=== PATIENT | female | born 1995 | race Caucasian/White ===

== ENCOUNTER 2022-08-12 16:01 | Emergency (ER) | payer MEDICAID, SELFPAY ==
[2022-08-12 16:09] VITALS: BP 117/74; PULSE 81; RESP 16; TEMP 36.5; O2SAT 97; BMI 21.3
--- NOTE | 2022-08-12 16:33 | ED_ITS ---
HPI - General Adult General Chief complaint: Nausea/Vomiting Stated complaint: Vomiting, weakness Time Seen by Provider: 08/12/22 16:09 History of Present Illness HPI narrative: This 27-year-old female comes in reporting some generalized weakness starting yesterday. She had some lightheadedness this morning. She states that she had similar symptoms when having a urinary tract infection in the past. She does describe some increased frequency and states that her urine is more yellow in appearance. She also reports a sore throat. Related Data Home Medications Medication Instructions Recorded Confirmed duloxetine 30 mg capsule,delayed 30 mg PO DAILY 08/12/22 08/12/22 release duloxetine 60 mg capsule,delayed 60 mg PO DAILY 08/12/22 08/12/22 release Allergies Allergy/AdvReac Type Severity Reaction Status Date / Time No Known Drug Allergies Allergy Verified 08/12/22 16:12 Review of Systems Status of ROS: Reports: 10 or more systems reviewed and unremarkable except as noted in History and below Narrative: Constitutional: No fevers, no weight gain or loss. Eyes: No discharge. No vision changes. HENT: No congestion, no ear pain. She reports a sore throat. Cardiovascular: No chest pain, no palpitations. Respiratory: No shortness of breath, no wheezes, no cough. Gastrointestinal: No abdominal pain, no vomiting, no diarrhea. Genitourinary: No hematuria. Increased urinary frequency. Musculoskeletal: Normal range of motion. Skin: No rashes, no pruritis. Neurological: No dizziness, sensory change, speech change. Endo/Heme/Allergies: No bruising or bleeding. No polydipsia. Pysch: no suicidality, no anxiety, no insomnia. All other systems reviewed and are negative. [facility] Social History Smoking Status: Current some day smoker What tobacco products do you use: cigarettes Do you use any of these nicotine containing products: None Second hand tobacco smoke exposure: No How often do you have a drink containing alcohol: never AUDIT-C Alcohol total score: 0 Non-prescribed substance use: denies use Exam Narrative: Exam Narrative: Constitutional: Well-developed, well-nourished, no acute distress. HEENT: Normocephalic, atraumatic. Oropharynx has mild erythema without tonsillar hypertrophy or exudate. Neck: Normal range of motion. Nontender. Supple. Heart: Regular. No murmurs. Normal rate. Intact distal pulses. Lungs: Clear to auscultation. No chest discomfort. No wheezes, rhonchi, or rales. Abdomen: Normal bowel sounds. Nontender. No rebound tenderness. Genitalia: Deferred. Back: No midline tenderness. Normal range of motion. Extremities: Normal range of motion. No injury. Skin: Intact. No rash. Warm. No erythema or pallor. Neurologic: No altered sensation. No weakness. Alert and oriented. Psychiatric: No suicidality. No anxiety or depression. No insomnia. Nursing notes and vitals signs are reviewed. Const: Vital Signs, click to edit/add: Vital Signs - 24 hr 08/12/22 16:09 Temperature 97.7 F Pulse Rate [Right Pulse Oximeter] 81 Respiratory Rate 16 Blood Pressure [Ri ght Upper Arm] 117/74 Pulse Oximetry 97 Oxygen Delivery Me thod Room Air Course Vital Signs Vital signs: Initial Vital Signs Temperature 97.7 F 08/12/22 16:09 Temperature Source Temporal Artery Scan 08/12/22 16:09 Pulse Rate 81 08/12/22 16:09 Respiratory Rate 16 08/12/22 16:09 Blood Pressure 117/74 08/12/22 16:09 Blood Pressure Mean 88 08/12/22 16:09 Blood Pressure Position Sitting 08/12/22 16:09 Pulse Oximetry 97 08/12/22 16:09 Oxygen Delivery Method 08/12/22 16:09 Vital Signs Temperature 97.7 F 08/12/22 16:09 Pulse Rate 81 08/12/22 16:09 Respiratory Rate 16 08/12/22 16:09 Blood Pressure 117/74 08/12/22 16:09 Pulse Oximetry 97 08/12/22 16:09 Oxygen Delivery Method 08/12/22 16:09 Temperature 97.7 F 08/12/22 16:09 Pulse Rate 81 08/12/22 16:09 Respiratory Rate 16 08/12/22 16:09 Blood Pressure 117/74 08/12/22 16:09 Pulse Oximetry 97 08/12/22 16:09 Oxygen Delivery Method 08/12/22 16:09 Medical Decision Making [facility] Narrative Medical decision making narrative: This patient comes in reporting generalized fatigue and some lightheadedness episodes. She wonders if she might have a urinary tract infection. She also has sore throat. She arrives with normal vital signs. Testing for her urine and strep both returned negative. The patient may have some kind of viral infection causing her symptoms. She is okay to be discharged and will use [id number] medicines as needed and directed. Lab Data Labs: Lab Results 08/12/22 08/12/22 Range/Units 16:32 16:33 Urine Color Yellow (Yellow) Urine Appearance Clear (Clear) Urine pH 8.0 (5.0-8.5) Ur Specific [place] 1.020 (1.000-1.030) Urine Protein Negative (Negative) Urine Glucose (UA) Negative (Negative) Urine Ketones Negative (Negative) Urine Blood Negative (Negative) Urine Nitrite Negative (Negative) Urine Bilirubin Negative (Negative) Urine Urobilinogen 0.2 (0.2-1.0) Ur Leukocyte Esterase Negative (Negative) Urine RBC 0-2 (0-2) Urine WBC 0-2 (0-5) Ur Squamous Epith Cells None (None-Few) Urine Bacteria None (None) Group A Strep DNA NOT DETECTED (No Detected) Discharge Plan Discharge Clinical Impression: Acute viral syndrome Patient Disposition: Home, Self-Care Condition: Stable Additional Instructions: Use rudn-[id number] medicines as needed and directed. Follow up with MD or return if worsening symptoms occur. Prescriptions: No Action duloxetine 30 mg capsule,delayed release(DR/EC) 30 mg PO DAILY Label Comments: TAKE ONE CAPSULE BY MOUTH EVERY MORNING WITH 60MG FOR TOTAL OF 90MG duloxetine 60 mg capsule,delayed release(DR/EC) 60 mg PO DAILY Label Comments: TAKE ONE CAPSULE BY MOUTH EVERY MORNING WITH 30MG TABLET FOR TOTAL DOSE OF 90MG Follow Up/Referrals: Joanna Carter MD [Primary Care Provider] - Stand Alone Forms: [employer] Info Instructions
[2022-08-12 16:45] LABS: Appearance Urine Clear (Clear); Bilirubin Urine Negative (Negative); Blood Urine Negative (Negative); Color Urine Yellow (Yellow); Glucose Urine Negative (Negative); Ketones Urine Negative (Negative); Leukocyte Esterase Urine Negative (Negative); Nitrite Urine Negative (Negative); Protein Urine Negative (Negative); Urobilinogen Urine 0.2 (0.2-1.0)
[2022-08-12 17:11] LABS: RBC Urine 0-2 (0-2); WBC Urine 0-2 (0-5)
[2022-08-12 17:17] LABS: Strep A DNA Probe* NOT DETECTED (No Detected)
== END 2022-08-12 17:54 | disposition home or self-care (01) ==
PROVIDERS: Emergency Provider Emergency Medicine Emergency Medical Services; PCP Family Medicine
DX: B34.9 Viral infection, unspecified (principal)
CPT/HCPCS: 81001; 87651; 99283; 99284

== ENCOUNTER 2023-02-11 13:33 | Emergency (ER) | payer OTHER, SELFPAY ==
[2023-02-11 13:38] VITALS: BP 108/70; PULSE 78; RESP 16; TEMP 36.7; O2SAT 99; BMI 20.6
[2023-02-11 14:20] LABS: Strep A DNA Probe* NOT DETECTED (Not Detectd)
[2023-02-11 15:11] LABS: PCR FLU A Negative PCR FLU A (Negative); PCR FLU B Negative PCR FLU B (Negative); PCR RSV Negative PCR RSV (Negative)
[2023-02-11 15:13] LABS: SARS PCR* Negative SARS-CoV-2 (Negative)
--- NOTE | 2023-02-12 12:44 | ED_ITS ---
HPI - General Adult General Chief complaint: Sore Throat Stated complaint: Sore Throat Weak Tired Time Seen by Provider: 02/11/23 13:34 History of Present Illness HPI narrative: 27-year-old young woman presenting to the emergency department with complaint of some headache and fatigue general achiness and sore throat though on further query it does not sound as though sore throat is the major complaint necessarily. She has not been vomiting. No abdominal pain. No dysuria. No shortness of breath. Young daughter who accompanies her here today was just diagnosed with strep throat. Symptoms started last night for Gini. She did a home test for COVID which was negative. Swabs have been collected by the time I am seeing Gini. No rash. Related Data Home Medications Medication Instructions Recorded Confirmed duloxetine 30 mg capsule,delayed 30 mg PO DAILY 08/12/22 02/11/23 release duloxetine 60 mg capsule,delayed 60 mg PO DAILY 08/12/22 02/11/23 release multivitamin with folic acid 400 1 tab PO DAILY 02/11/23 mcg tablet (Daily-Cori (with folic acid)) ondansetron 4 mg disintegrating 4 mg PO Q8H PRN nausea/vomiting 02/11/23 02/11/23 tablet vitamin with calcium 1 tab PO DAILY 02/11/23 02/11/23 no.72-iron 27 mg-folic acid 1 mg tablet ( Vitamins Plus Low Iron) triamcinolone acetonide 0.1 % topical BID 02/11/23 lotion triamcinolone acetonide 0.5 % applic topical BID 02/11/23 topical cream Allergies Allergy/AdvReac Type Severity Reaction Status Date / Time No Known Drug Allergies Allergy Verified 02/11/23 13:44 Review of Systems Status of ROS: Reports: 6 or more systems reviewed and unremarkable except as noted in History and below [facility] Social History Smoking Status: Current some day smoker What tobacco products do you use: cigarettes Do you use any of these nicotine containing products: None Second hand tobacco smoke exposure: No How often do you have a drink containing alcohol: never AUDIT-C Alcohol total score: 0 Non-prescribed substance use: denies use Exam Narrative: Exam Narrative: Pleasant. NAD but seems generally uncomfortable. Lying on her left side curled up around her daughter. Tired breathing easily. Lungs are clear. Neck is supple without lymphadenopathy. Oropharynx is moist with trace erythema posteriorly. No laryngitis. She is not coughing. No stridor. Heart with regular rate and rhythm. Abdomen is soft nontender. Extremities are well perfused. Skin is warm and dry without rash. Const: Vital Signs, click to edit/add: Vital Signs - 24 hr 02/11/23 13:38 Temperature 98.0 F Pulse Rate [Pulse Oximeter] 78 Respiratory Rate 16 Blood Pressure [Ri ght Upper Arm] 108/70 Pulse Oximetry 99 Oxygen Delivery Me thod Room Air Documenting provider has reviewed patient's vital signs: yes Course Vital Signs Vital signs: Initial Vital Signs Temperature 98.0 F 02/11/23 13:38 Temperature Source Temporal Artery Scan 02/11/23 13:38 Pulse Rate 78 02/11/23 13:38 Respiratory Rate 16 02/11/23 13:38 Blood Pressure 108/70 02/11/23 13:38 Blood Pressure Mean 82 02/11/23 13:38 Blood Pressure Position Sitting 02/11/23 13:38 Pulse Oximetry 99 02/11/23 13:38 Oxygen Delivery Method Room Air 02/11/23 13:38 Vital Signs Temperature 98.0 F 02/11/23 13:38 Pulse Rate 78 02/11/23 13:38 Respiratory Rate 16 02/11/23 13:38 Blood Pressure 108/70 02/11/23 13:38 Pulse Oximetry 99 02/11/23 13:38 Oxygen Delivery Method Room Air 02/11/23 13:38 Temperature 98.0 F 02/11/23 13:38 Pulse Rate 78 02/11/23 13:38 Respiratory Rate 16 02/11/23 13:38 Blood Pressure 108/70 02/11/23 13:38 Pulse Oximetry 99 02/11/23 13:38 Oxygen Delivery Method Room Air 02/11/23 13:38 Medical Decision Making MDM Narrative Medical decision making narrative: I suspect more of a nonspecific viral process. Some unreliability to home COVID test. Would repeat that with triple swab and check for strep given intimacy of exposure. Triple swab and strep was negative. Was ordered for ibuprofen during time in the ER. See patient discharge plan Lab Data Lab results reviewed: Yes I reviewed the patient's lab results Labs: Lab Results 02/11/23 02/11/23 Range/Units 13:45 14:25 SARS-CoV-2 (PCR) Negative SARS-CoV-2 (Negative) Influenza Type A (PCR) Negative PCR FLU A (Negative) Influenza Type B (PCR) Negative PCR FLU B (Negative) RSV (PCR) Negative PCR RSV (Negative) Group A Strep DNA NOT DETECTED (Not Detectd) Discharge Plan Discharge Clinical Impression: Myalgia, Viral illness Patient Disposition: Home, Self-Care Condition: Stable Additional Instructions: Stay well-hydrated. Rest as able. Throat lozenges or sprays like Sucrets or Chloraseptic might be helpful. Sleep under the mist of a cool mist humidifier. Can take up to 800 mg of ibuprofen or up to 1000 mg of acetaminophen per dose. Alternative to the ibuprofen up to 500 mg naproxen 2 times daily. Prescriptions: No Action duloxetine 30 mg capsule,delayed release(DR/EC) 30 mg PO DAILY Patient Comments: TAKE ONE CAPSULE BY MOUTH EVERY MORNING WITH 60MG FOR TOTAL OF 90MG duloxetine 60 mg capsule,delayed release(DR/EC) 60 mg PO DAILY Patient Comments: TAKE ONE CAPSULE BY MOUTH EVERY MORNING WITH 30MG TABLET FOR TOTAL DOSE OF 90MG triamcinolone acetonide 0.5 % cream topical BID triamcinolone acetonide 0.1 % lotion TOPICAL BID ondansetron 4 mg tablet,disintegrating 4 mg PO Q8H PRN (Reason: nausea/vomiting) Vitamin Plus Low Iron 27 mg iron- 1 mg tablet 1 tab PO DAILY multivitamin with folic acid [Daily-Cori (with folic acid)] 400 mcg tablet 1 tab PO DAILY Follow Up/Referrals: Joanna Carter MD [Primary Care Provider] - Stand Alone Forms: [facility] Info Instructions
== END 2023-02-11 15:35 | disposition home or self-care (01) ==
PROVIDERS: Emergency Provider Family Medicine; PCP Family Medicine
DX: M79.10 Myalgia, unspecified site (principal); B34.9 Viral infection, unspecified
CPT/HCPCS: 87502; 87634; 87635; 87651; 99283

== ENCOUNTER 2023-08-24 17:52 | Emergency (ER) | payer OTHER, SELFPAY ==
[2023-08-24 18:00] VITALS: BP 110/70; PULSE 80; RESP 18; TEMP 36.9; O2SAT 100; BMI 21.5
--- NOTE | 2023-08-24 18:16 | ED_ITS ---
HPI - General Adult General Time Seen by Provider: 18:16 Date Seen: 08/24/23 Chief complaint: Nausea/Vomiting Stated complaint: 10 weeks , vomiting, headache Time Seen by Provider: 08/24/23 18:00 Source: patient and RN notes reviewed Mode of arrival: ambulatory Limitations: no limitations History of Present Illness HPI narrative: This 28-year-old female is coming in with nausea vomiting about 10 weeks . She has had an underlying respiratory infection. She was evaluated at [facility] on Saturday and then [facility] on . She has had negative COVID testing, negative strep testing. This is her 3rd . Her 1st she was sick throughout the whole with morning sickness. She did use Zofran that . She had a miscarriage in December. She is quite concerned that something could be wrong with the baby. She is not having any cramping, no spotting/bleeding. No abnormal vaginal discharge. She states her urination is normal. She is just sick and can not get anything in. She is still taking her prenatals. She has got a lot of nasal congestion some headache, no fevers. She is wondering if she can have an ultrasound. She has tried vitamin B6 and Unisom, it is not helping. She notes the morning sickness is really worsening over these last few weeks and then with her cold symptoms on top of it, she is feeling miserable. Related Data Home Medications Medication Instructions Recorded Confirmed duloxetine 30 mg capsule,delayed 30 mg PO DAILY 08/12/22 02/11/23 release duloxetine 60 mg capsule,delayed 60 mg PO DAILY 08/12/22 02/11/23 release multivitamin with folic acid 400 1 tab PO DAILY 02/11/23 mcg tablet (Daily-Cori (with folic acid)) ondansetron 4 mg disintegrating 4 mg PO Q8H PRN nausea/vomiting 02/11/23 02/11/23 tablet vitamin with calcium 1 tab PO DAILY 02/11/23 02/11/23 no.72-iron 27 mg-folic acid 1 mg tablet ( Vitamins Plus Low Iron) triamcinolone acetonide 0.1 % topical BID 02/11/23 lotion triamcinolone acetonide 0.5 % applic topical BID 02/11/23 topical cream Allergies Allergy/AdvReac Type Severity Reaction Status Date / Time No Known Drug Allergies Allergy Verified 02/11/23 13:44 Review of Systems Status of ROS: Reports: 6 or more systems reviewed and unremarkable except as noted in History and below [facility] Social History Smoking Status: Current some day smoker What tobacco products do you use: cigarettes Do you use any of these nicotine containing products: None Second hand tobacco smoke exposure: No How often do you have a drink containing alcohol: never AUDIT-C Alcohol total score: 0 Non-prescribed substance use: denies use Exam Const: Vital Signs, click to edit/add: Vital Signs - 24 hr 08/24/23 18:00 Temperature 98.5 F Pulse Rate [Pulse Oximeter] 80 Respiratory Rate 18 Blood Pressure [Ri ght Upper Arm] 110/70 Pulse Oximetry 100 Oxygen Delivery Me thod Room Air This is a 28-year-old female that is alert, interactive, no apparent distress. Able speak in complete sentences. Sclera clear, pupils equal round reactive. Symmetrical facial function. Neck is supple, no thyromegaly masses or nodules. Lungs are clear, good air entry, no wheezing or crackles. CV regular rate and rhythm, no murmur, normal S1 and S2. Abdomen is soft, nontender nondistended. Bedside ultrasound was done. Can see a gestational sac with the pole. I can see cardiac activity, looks certainly appropriate. Documenting provider has reviewed patient's vital signs: yes Course Course ED Course: Patient is very reassured by the bedside ultrasound. We will establish an IV, get basic lab work. Will give her 4 mg IV Zofran. She does not have a follow-up with her OB Dr. Carter for another 2 and half weeks per her report. Reevaluation(s) Time of Reevaluation #1: 19:15 Reevaluation #1: Patient is completed IV fluids. Does have audible nasal congestion in she is blowing her nose when I walk in. She does feel better. Reviewed her labs, they are reassuring. She is requesting a prescription of Zofran from [facility] which I will provide. This will be 10 tablets in the machine that will be provided. Vital Signs Vital signs: Initial Vital Signs Temperature 98.5 F 08/24/23 18:00 Temperature Source Temporal Artery Scan 08/24/23 18:00 Pulse Rate 80 08/24/23 18:00 Respiratory Rate 18 08/24/23 18:00 Blood Pressure 110/70 08/24/23 18:00 Blood Pressure Mean 83 08/24/23 18:00 Pulse Oximetry 100 08/24/23 18:00 Oxygen Delivery Method Room Air 08/24/23 18:00 Vital Signs Temperature 98.5 F 08/24/23 18:00 Pulse Rate 80 08/24/23 18:00 Respiratory Rate 18 08/24/23 18:00 Blood Pressure 110/70 08/24/23 18:00 Pulse Oximetry 100 08/24/23 18:00 Oxygen Delivery Method Room Air 08/24/23 18:00 Temperature 98.5 F 08/24/23 18:00 Pulse Rate 80 08/24/23 18:00 Respiratory Rate 18 08/24/23 18:00 Blood Pressure 110/70 08/24/23 18:00 Pulse Oximetry 100 08/24/23 18:00 Oxygen Delivery Method Room Air 08/24/23 18:00 Medical Decision Making Lab Data Lab results reviewed: Yes I reviewed the patient's lab results Labs: Lab Results 08/24/23 08/24/23 Range/Units 18:33 18:38 WBC 10.66 (4.50-11.00) K/uL RBC 4.41 (4.00-5.20) m/uL Hgb 12.4 (12.0-16.0) gm/dL Hct 38.4 (33.0-51.0) % MCV 87 (80-100) fL MCH 28 (26-34) pg MCHC 32 (32-36) gm/dL RDW Coeff of Jase 13.2 (11.5-15.5) % Plt Count 237 (140-440) K/uL Neut % (Auto) 66.1 (42.0-72.0) % Lymph % (Auto) 26.6 (20-44) % [place] % (Auto) 6.1 (0.0-11.0) % Eos % (Auto) 0.8 (0.0-7.0) % Baso % (Auto) 0.3 (0.0-3.0) % Neut # (Auto) 7.05 H (1.7-7.0) K/uL Lymph # (Auto) 2.84 (0.90-2.90) K/uL [place] # (Auto) 0.70 (0.00-0.90) K/UL Eos # (Auto) 0.08 (0.00-0.50) K/uL Baso # (Auto) 0.03 (0.00-0.30) K/uL Abs Immat Gran (auto) 0.01 (0.00-0.30) K/uL Imm/Tot Granulo (auto) 0.1 % Sodium 139 (135-149) mmol/L Potassium 3.7 (3.6-5.1) mmol/L Chloride 103 (96-114) mmol/L Carbon Dioxide 28 (20-32) mmol/L Anion Gap 8 (7-15) mEq/L BUN 3 L (5-24) mg/dL Creatinine 0.4 L (0.5-1.5) mg/dL Estimated Creat Clear 180.81 Estimated GFR 138 ml/min Glucose 84 (60-115) mg/dL Calcium 9.2 (8.4-10.6) mg/dL Urine Color Yellow (Yellow) Urine Appearance Clear (Clear) Urine pH 8.5 (5.0-8.5) Ur Specific [place] 1.015 (1.000-1.030) Urine Protein Negative (Negative) Urine Glucose (UA) Negative (Negative) Urine Ketones Negative (Negative) Urine Blood Trace-intact A (Negative) Urine Nitrite Negative (Negative) Urine Bilirubin Negative (Negative) Urine Urobilinogen 0.2 (0.2-1.0) Ur Leukocyte Esterase Trace A (Negative) Discharge Plan Discharge Clinical Impression: Acute upper respiratory infection, Nausea and vomiting during prior to 22 weeks gestation Patient Disposition: Home, Self-Care Condition: Stable Instructions: Nausea and Vomiting in (ED), Upper Respiratory Infection (ED) Additional Instructions: Contact your primary provider to discuss or get a list of what cough and cold medicines they recommend during . Otherwise, can use Zofran for ongoing nausea vomiting. Keep your scheduled OB appointment but see if they can move it up if there are any cancellations. If you feel you are worsening, develops a fever, cannot get adequate fluids in despite Zofran use, do need to be re-evaluated. Activity Level: Activity as Tolerated Discharge Diet: Regular Prescriptions: No Action duloxetine 30 mg capsule,delayed release(DR/EC) 30 mg PO DAILY Patient Comments: TAKE ONE CAPSULE BY MOUTH EVERY MORNING WITH 60MG FOR TOTAL OF 90MG duloxetine 60 mg capsule,delayed release(DR/EC) 60 mg PO DAILY Patient Comments: TAKE ONE CAPSULE BY MOUTH EVERY MORNING WITH 30MG TABLET FOR TOTAL DOSE OF 90MG triamcinolone acetonide 0.5 % cream topical BID triamcinolone acetonide 0.1 % lotion TOPICAL BID ondansetron 4 mg tablet,disintegrating 4 mg PO Q8H PRN (Reason: nausea/vomiting) Vitamin Plus Low Iron 27 mg iron- 1 mg tablet 1 tab PO DAILY multivitamin with folic acid [Daily-Cori (with folic acid)] 400 mcg tablet 1 tab PO DAILY Follow Up/Referrals: Joanna Carter MD [Primary Care Provider] - Stand Alone [facility]: [facility] Info Instructions
[2023-08-24 18:44] LABS: Basophils Absolute Auto 0.03 K/uL (0.00-0.30); Basophils Percent Auto 0.3 % (0.0-3.0); Eosinophils Absolute Auto 0.08 K/uL (0.00-0.50); Eosinophils Percent Auto 0.8 % (0.0-7.0); Hematocrit 38.4 % (33.0-51.0); Hemoglobin* 12.4 gm/dL (12.0-16.0); Immature Granulocytes Abs Auto 0.01 K/uL (0.00-0.30); Immature Granulocytes Pct Auto 0.1 %; Lymphocytes Absolute Auto 2.84 K/uL (0.90-2.90); Lymphocytes Percent Auto 26.6 % (20-44); Mean Corpuscular HGB Conc 32 gm/dL (32-36); Mean Corpuscular Hemoglobin 28 pg (26-34); Mean Corpuscular Volume 87 fL (80-100); Monocytes Percent Auto 6.1 % (0.0-11.0); Neutrophils Absolute Auto 7.05 K/uL (1.7-7.0); Neutrophils Percent Auto 66.1 % (42.0-72.0); Platelet Count* 237 K/uL (140-440); RDW Coefficient of Variation % 13.2 % (11.5-15.5); Red Blood Count 4.41 m/uL (4.00-5.20); White Blood Count* 10.66 K/uL (4.50-11.00)
[2023-08-24] MEDS: 0.9 % SODIUM CHLORIDE 1000 ml 1,000 ML IV (18:46)
[2023-08-24] MEDS: ONDANSETRON 2 MG/ML inj 4 MG IVP (18:46)
[2023-08-24 18:53] LABS: Slide Review Reflex No
[2023-08-24 18:56] LABS: Chloride* 103 mmol/L (96-114)
[2023-08-24 18:57] LABS: Potassium* 3.7 mmol/L (3.6-5.1); Sodium* 139 mmol/L (135-149)
[2023-08-24 18:59] LABS: Creatinine* 0.4 mg/dL (0.5-1.5); Est. Creatinine Clearance* 180.81; Estimated Glomerular Filt Rate 138 ml/min
[2023-08-24 19:00] LABS: Anion Gap 8 mEq/L (7-15); Blood Urea Nitrogen* 3 mg/dL (5-24); Calcium* 9.2 mg/dL (8.4-10.6); Carbon Dioxide* 28 mmol/L (20-32); Glucose* 84 mg/dL (60-115)
[2023-08-24 19:10] LABS: Appearance Urine Clear (Clear); Bilirubin Urine Negative (Negative); Blood Urine Trace-intact (Negative); Color Urine Yellow (Yellow); Glucose Urine Negative (Negative); Ketones Urine Negative (Negative); Leukocyte Esterase Urine Trace (Negative); Nitrite Urine Negative (Negative); Protein Urine Negative (Negative); Specific Gravity Urine 1.015 (1.000-1.030); Urobilinogen Urine 0.2 (0.2-1.0); pH Urine 8.5 (5.0-8.5)
[2023-08-24 19:18] LABS: RBC Urine 0-2 (0-2); WBC Urine 0-2 (0-5)
== END 2023-08-24 19:47 | disposition home or self-care (01) ==
PROVIDERS: Emergency Provider Family Medicine; PCP Family Medicine
DX: O21.9 Vomiting of pregnancy, unspecified (principal); J06.9 Acute upper respiratory infection, unspecified
CPT/HCPCS: 36415; 80048; 81003; 81015; 85025; 96374; 99284; J2405; J7030

== ENCOUNTER 2023-08-26 15:31 | Emergency (ER) | payer OTHER, SELFPAY ==
[2023-08-26 15:49] VITALS: BP 117/75; PULSE 72; RESP 18; TEMP 36.8; O2SAT 98
--- NOTE | 2023-08-26 17:19 | ED_ITS ---
HPI - General Adult General Date Seen: 08/26/23 Chief complaint: Nausea/Vomiting Stated complaint: , nausea Time Seen by Provider: 08/26/23 16:55 Source: patient Mode of arrival: ambulatory Limitations: no limitations History of Present Illness HPI narrative: Patient is a 28-year-old woman who is here with her 3rd and problems with hyperemesis. She was here week ago, had some upper respiratory symptoms as well as vomiting and was treated with fluids and Zofran. She was sent home with Zofran and says she has been taking those but she still having problems with vomiting. She talked to her [facility], [facility], and they are going to see her on Saturday and get some scheduled IVs set up, but recommended that she come in today to be treated. She had problems with hyperemesis throughout her 1st but says she had more nausea and not so much vomiting. Otherwise she is not having any related concerns such as bleeding or pain. She continues to feel congested. COVID has been checked a couple of times and was negative. Related Data Home Medications Medication Instructions Recorded Confirmed duloxetine 30 mg capsule,delayed 30 mg PO DAILY 08/12/22 02/11/23 release duloxetine 60 mg capsule,delayed 60 mg PO DAILY 08/12/22 02/11/23 release multivitamin with folic acid 400 1 tab PO DAILY 02/11/23 mcg tablet (Daily-Cori (with folic acid)) ondansetron 4 mg disintegrating 4 mg PO Q8H PRN nausea/vomiting 02/11/23 02/11/23 tablet vitamin with calcium 1 tab PO DAILY 02/11/23 02/11/23 no.72-iron 27 mg-folic acid 1 mg tablet ( Vitamins Plus Low Iron) triamcinolone acetonide 0.1 % topical BID 02/11/23 lotion triamcinolone acetonide 0.5 % applic topical BID 02/11/23 topical cream Previous Rx's Medication Instructions Recorded metoclopramide HCl 5 mg tablet 5 mg PO DAILY #7 tabs 08/26/23 (Reglan) Allergies Allergy/AdvReac Type Severity Reaction Status Date / Time No Known Drug Allergies Allergy Verified 02/11/23 13:44 Review of Systems Status of ROS: Reports: 6 or more systems reviewed and unremarkable except as noted in History and below PFSH PFSH Social History Smoking Status: Current some day smoker What tobacco products do you use: cigarettes Do you use any of these nicotine containing products: None Second hand tobacco smoke exposure: No How often do you have a drink containing alcohol: never How often do you have six or more drinks on one occasion: Never AUDIT-C Alcohol total score: 0 Non-prescribed substance use: denies use service: No Exam Narrative: Exam Narrative: Vital signs as noted above. In general, an alert, well-appearing patient. Head: Normocephalic, atraumatic. Eyes: Pupils are equal reactive. Extraocular movements are full. Conjunctivae are normal. ENT: Mucous membranes are moist. Neck: Supple without lymphadenopathy. Abdomen: Soft and nontender. Extremities: Well perfused. No edema. No calf tenderness. Pulses intact. Neurologic: Patient is alert and oriented to person and place. Speech is fluent. Face is symmetric. Moves all extremities equally. Affect: Normal. Skin: Warm and dry. Well perfused. Const: Vital Signs, click to edit/add: Vital Signs - 24 hr 08/26/23 15:49 Temperature 98.3 F Pulse Rate [Right Pulse Oximeter] 72 Respiratory Rate 18 Blood Pressure [Ri ght Upper Arm] 117/75 Pulse Oximetry 98 Oxygen Delivery Me thod Room Air Documenting provider has reviewed patient's vital signs: yes Course Course ED Course: An IV was placed, I did check a metabolic panel and labs are normal, CO2 is 23, BUN 5, creatinine 0.4, electrolytes normal. Blood sugars 87. She had a L normal saline and Reglan here, she is currently eating [employer], has not had any vomiting. Reasonable to discharge home. I will prescribe some Reglan perhaps that will work better for her. Follow up with her OB Clinic on Saturday as planned. Vital Signs Vital signs: Initial Vital Signs Temperature 98.3 F 08/26/23 15:49 Temperature Source Temporal Artery Scan 08/26/23 15:49 Pulse Rate 72 08/26/23 15:49 Respiratory Rate 18 08/26/23 15:49 Blood Pressure 117/75 08/26/23 15:49 Blood Pressure Mean 89 08/26/23 15:49 Blood Pressure Position Sitting 08/26/23 15:49 Pulse Oximetry 98 08/26/23 15:49 Oxygen Delivery Method Room Air 08/26/23 15:49 Vital Signs Temperature 98.3 F 08/26/23 15:49 Pulse Rate 72 08/26/23 15:49 Respiratory Rate 18 08/26/23 15:49 Blood Pressure 117/75 08/26/23 15:49 Pulse Oximetry 98 08/26/23 15:49 Oxygen Delivery Method Room Air 08/26/23 15:49 Temperature 98.3 F 08/26/23 15:49 Pulse Rate 72 08/26/23 15:49 Respiratory Rate 18 08/26/23 15:49 Blood Pressure 117/75 08/26/23 15:49 Pulse Oximetry 98 08/26/23 15:49 Oxygen Delivery Method Room Air 08/26/23 15:49 Medical Decision Making Lab Data Labs: Lab Results 08/26/23 Range/Units 17:21 Sodium 137 (135-149) mmol/L Potassium 3.8 (3.6-5.1) mmol/L Chloride 104 (96-114) mmol/L Carbon Dioxide 23 (20-32) mmol/L Anion Gap 10 (7-15) mEq/L BUN 5 (5-24) mg/dL Creatinine 0.4 L (0.5-1.5) mg/dL Estimated GFR 138 ml/min Glucose 87 (60-115) mg/dL Calcium 9.6 (8.4-10.6) mg/dL Discharge Plan Discharge Clinical Impression: Nausea and vomiting during prior to 22 weeks gestation Patient Disposition: Home, Self-Care Condition: Improved Instructions: Nausea and Vomiting in (ED) Additional Instructions: Try Reglan as prescribed to see if it works better for you. Follow-up on Saturday as planned. Prescriptions: New metoclopramide HCl [Reglan] 5 mg tablet 5 mg PO DAILY Qty: 7 0RF No Action duloxetine 30 mg capsule,delayed release(DR/EC) 30 mg PO DAILY Patient Comments: TAKE ONE CAPSULE BY MOUTH EVERY MORNING WITH 60MG FOR TOTAL OF 90MG duloxetine 60 mg capsule,delayed release(DR/EC) 60 mg PO DAILY Patient Comments: TAKE ONE CAPSULE BY MOUTH EVERY MORNING WITH 30MG TABLET FOR TOTAL DOSE OF 90MG triamcinolone acetonide 0.5 % cream topical BID triamcinolone acetonide 0.1 % lotion TOPICAL BID ondansetron 4 mg tablet,disintegrating 4 mg PO Q8H PRN (Reason: nausea/vomiting) Vitamin Plus Low Iron 27 mg iron- 1 mg tablet 1 tab PO DAILY multivitamin with folic acid [Daily-Cori (with folic acid)] 400 mcg tablet 1 tab PO DAILY Follow Up/Referrals: Joanna Carter MD [Primary Care Provider] - Stand Alone Forms: [employer] other things you bake Info Instructions
[2023-08-26] MEDS: METOCLOPRAMIDE HCL 10 MG in 0.9 % SODIUM CHLORIDE 100 ml 100 ML 306 MG IVPB (17:20)
[2023-08-26] MEDS: 0.9 % SODIUM CHLORIDE 1000 ml 1,000 ML IV (17:20)
[2023-08-26 17:51] LABS: Chloride* 104 mmol/L (96-114); Potassium* 3.8 mmol/L (3.6-5.1); Sodium* 137 mmol/L (135-149)
[2023-08-26 17:53] LABS: Creatinine* 0.4 mg/dL (0.5-1.5); Estimated Glomerular Filt Rate 138 ml/min
[2023-08-26 17:54] LABS: Anion Gap 10 mEq/L (7-15); Blood Urea Nitrogen* 5 mg/dL (5-24); Calcium* 9.6 mg/dL (8.4-10.6); Carbon Dioxide* 23 mmol/L (20-32); Glucose* 87 mg/dL (60-115)
== END 2023-08-26 18:39 | disposition home or self-care (01) ==
PROVIDERS: Emergency Provider Emergency Medicine; PCP Family Medicine
DX: R11.2 Nausea with vomiting, unspecified (principal); Z3A.22 22 weeks gestation of pregnancy
CPT/HCPCS: 36415; 80048; 96365; 99283; 99284; J2765; J7030

== ENCOUNTER 2023-11-06 09:15 | Outpatient (CLI) | payer OTHER, SELFPAY ==
[2023-11-06] VITALS (10 sets, daily range): BP systolic 117; BP diastolic 64; PULSE 80–86; RESP 16; TEMP 36.8; O2SAT 98–99
== END 2023-11-06 10:20 | disposition home or self-care (01) ==
LOC: OB OUT 09:16 → OB 09:17
PROVIDERS: PCP Family Medicine; Visit Provider Student in an Organized Health Care Education/Training Program
DX: O60.00 Preterm labor without delivery, unspecified trimester (principal)
CPT/HCPCS: 99213

== ENCOUNTER 2023-12-30 19:02 | Outpatient (CLI) | payer MEDICAID, SELFPAY ==
[2023-12-30 19:40] VITALS: BP 116/67; PULSE 83
[2023-12-30 20:00] VITALS: RESP 16; TEMP 36.7
[2023-12-30 20:27] LABS: Appearance Urine Clear (Clear); Bilirubin Urine Negative (Negative); Blood Urine Negative (Negative); Color Urine Yellow (Yellow); Glucose Urine Negative (Negative); Ketones Urine Negative (Negative); Leukocyte Esterase Urine Negative (Negative); Nitrite Urine Negative (Negative); Protein Urine Negative (Negative); Specific Gravity Urine 1.025 (1.000-1.030); Urobilinogen Urine 0.2 (0.2-1.0)
[2023-12-30] MEDS: ACETAMINOPHEN 500 MG TABLET 1000 MG PO (20:49)
[2023-12-30 22:43] LABS: Bacterial Vaginosis* DETECTED (No Detected); Candida glab/krus Not Detected (No Detected); Candida species DETECTED (No Detected); Trichomonas vaginalis Not Detected (No Detected)
--- NOTE | 2023-12-30 23:28 | PC.OBNST ---
NST Note NST Note Start: 12/30/23 19:29 Freq: ONCE Status: Active Protocol: Document 12/30/23 23:26 ADRIÁN (Rec: 12/30/23 23:27 ADRIÁN [id number]) NST Note 4 Para (# of births) 1 EDC 03/15/24 Gestational Age In Weeks & Days 29 Weeks & 1 Days Patient Presented with Complaint(s) of Pain If Pain, describe location Pelvic pain/pain in left hip/ groin Reactive Yes Appropriate for Gestational Age Yes RN Ashu Walton, RN Date 12/30/23 Reactive Yes Appropriate for Gestational Age Yes SHERRI Reyes, RN Date 12/30/23 OB NST charge Yes Complete NST Note via Write Note Yes The provider's electronic signature indicates the NST is reactive/appropriate for gestational age. *Note to provider: If an addendum is required, open the patient's chart and click on the note under the Nurse/Allied Health tab.
--- NOTE | 2024-01-01 11:14 | PC.OBNST ---
NST Note NST Note Start: 12/30/23 19:29 Freq: ONCE Status: Discharge Protocol: Document 12/30/23 23:26 ADRIÁN (Rec: 12/30/23 23:27 ADRIÁN [id number]) NST Note 4 Para (# of births) 1 EDC 03/15/24 Gestational Age In Weeks & Days 29 Weeks & 1 Days Patient Presented with Complaint(s) of Pain If Pain, describe location Pelvic pain/pain in left hip/ groin Reactive Yes Appropriate for Gestational Age Yes RN Ashu Walton, RN Date 12/30/23 Reactive Yes Appropriate for Gestational Age Yes SHERRI Reyes, RN Date 12/30/23 OB NST charge Yes Complete NST Note via Write Note Yes The provider's electronic signature indicates the NST is reactive/appropriate for gestational age. *Note to provider: If an addendum is required, open the patient's chart and click on the note under the Nurse/Allied Health tab.
== END 2023-12-30 23:18 | disposition home or self-care (01) ==
LOC: OB OUT 19:03 → OB 19:04
PROVIDERS: PCP Family Medicine; Visit Provider Family Medicine
DX: O47.03 False labor before 37 completed weeks of gestation, third trimester (principal); Z3A.29 29 weeks gestation of pregnancy
CPT/HCPCS: 59025; 81003; 81513; 87481; 87661; G0463; A9270

== ENCOUNTER 2024-02-06 09:39 | Outpatient (CLI) | payer MEDICAID, SELFPAY ==
[2024-02-06 09:45] VITALS: RESP 18; TEMP 36.6
[2024-02-06 09:49] VITALS: BP 122/75; PULSE 82
[2024-02-06] MEDS: ACETAMINOPHEN 325 MG TABLET PO (09:55)
[2024-02-06 10:09] VITALS: BP 116/65; PULSE 76
[2024-02-06 10:10] LABS: Hematocrit 36.7 % (33.0-51.0); Hemoglobin* 11.8 gm/dL (12.0-16.0); Mean Corpuscular HGB Conc 32 gm/dL (32-36); Mean Corpuscular Hemoglobin 28 pg (26-34); Mean Corpuscular Volume 88 fL (80-100); Platelet Count* 214 K/uL (140-440); Red Blood Count 4.19 m/uL (4.00-5.20); White Blood Count* 11.02 K/uL (4.50-11.00)
[2024-02-06 10:16] LABS: Slide Review Reflex No
[2024-02-06 10:20] VITALS: BP 115/65; PULSE 72
[2024-02-06 10:31] LABS: Alanine Aminotransferase* 12 U/L (4-35); Aspartate Amino Transferase* 16 U/L (12-35); Blood Urea Nitrogen* 8 mg/dL (5-24); Creatinine* 0.4 mg/dL (0.5-1.5); Estimated Glomerular Filt Rate 138 ml/min
[2024-02-06 10:31] LABS: Total Protein Urine 10 mg/dL
[2024-02-06 10:33] LABS: Creatinine Urine 25.5 mg/dL
[2024-02-06 10:34] VITALS: BP 116/62; PULSE 77
[2024-02-06 12:04] LABS: PCR FLU A Negative PCR FLU A (Negative); PCR FLU B Negative PCR FLU B (Negative); PCR RSV Negative PCR RSV (Negative); SARS PCR* Negative SARS-CoV-2 (Negative)
--- NOTE | 2024-02-06 13:34 | PC.OBNST ---
NST Note NST Note Start: 02/06/24 09:50 Freq: ONCE Status: Active Protocol: Document 02/06/24 13:32 WK (Rec: 02/06/24 13:34 WK [id number]) NST Note 4 Para (# of births) 1 EDC 03/14/24 Gestational Age In Weeks & Days 34 Weeks & 5 Days Patient Presented with Complaint(s) of Headache Reactive Yes RN Zackery RNC Date 02/06/24 Reactive Yes RN Camille RNC Date 02/06/24 OB NST charge Yes Complete NST Note via Write Note Yes The provider's electronic signature indicates the NST is reactive/appropriate for gestational age. *Note to provider: If an addendum is required, open the patient's chart and click on the note under the Nurse/Allied Health tab.
--- NOTE | 2024-02-06 13:58 | PM.OBLDTN ---
OB - Triage/Final Diagnosis Visit Information Date Seen: 02/06/24 Narrative: The patient is a 28 year old 4 para 1 at 34.4 weeks gestation by LMP, who presents with headache. She has a history of preeclampsia and wanted to make sure that wasn't going on now. Headache started this morning up to a 6/10. Center of her head. No other symptoms. Feeling good movement. No contractions. No RUQ pain. Good movement. No visual changes. Exposed to influenza yesterday but no respiratory symptoms. Evaluation Laboratory results: Laboratory Tests 02/06/24 02/06/24 02/06/24 Range/Units Unknown 11:14 10:04 WBC 11.02 H (4.50-11.00) K/uL RBC 4.19 (4.00-5.20) m/uL Hgb 11.8 L (12.0-16.0) gm/dL Hct 36.7 (33.0-51.0) % MCV 88 (80-100) fL MCH 28 (26-34) pg MCHC 32 (32-36) gm/dL Plt Count 214 (140-440) K/uL BUN 8 (5-24) mg/dL Creatinine 0.4 L (0.5-1.5) mg/dL Estimated GFR 138 ml/min AST 16 (12-35) U/L ALT 12 (4-35) U/L Urine Creatinine 25.5 mg/dL Protein/Creatinin Ratio 0.30 H (0-0.19) Urine Total Protein 10 mg/dL SARS-CoV-2 (PCR) Negative SARS-CoV-2 (Negative) Influenza Type A (PCR) Negative PCR FLU A (Negative) Influenza Type B (PCR) Negative PCR FLU B (Negative) RSV (PCR) Negative PCR RSV (Negative) Vital signs: Vital Signs - 24 hr 02/06/24 09:45 02/06/24 09:49 02/06/24 10:09 Temperature 98 F Pulse Rate 82 Respiratory Rate 18 Blood Pressure 122/75 116/65 02/06/24 10:09 02/06/24 10:20 02/06/24 10:20 Temperature Pulse Rate 76 72 Respiratory Rate Blood Pressure 115/65 02/06/24 10:34 02/06/24 10:34 Temperature Pulse Rate 77 Respiratory Rate Blood Pressure 116/62 Comments: Objective: BP 115/65 Gen: NAD Abd: Gravid uterus, nontender Neuro: DTRs 1+, no clonus Fetus (Single) Heart Rate Baseline: 140 Senior Care Variability: Moderate (6-25) Monitor Accelerations: Present Monitor Decelerations: None Final Diagnosis (1) Headache in : Status: Acute Problem details: Preeclampsia rule out. Labs normal except urine p/c ratio slightly high at 0.3. Will get 24 hour urine protein to evaluate further. Flu/Covid/RSV swab negative. Headache improved with tylenol. She declines tamiflu for influenza prevention. Will discharge home and follow up tomorrow with Dr. Carter. Return if worsening symptoms or other concerns.
[2024-02-07 11:48] LABS: Total Protein Urine 10 mg/dL
[2024-02-07 14:54] LABS: Collection Time Urine 24 Hours; Total Volume 24 Hour Urine 2250 ml; Urine Creatinine mg/24 Hour 0 mg/Day
== END 2024-02-06 13:15 | disposition home or self-care (01) ==
LOC: OB OUT 09:39 → OB 09:42
PROVIDERS: PCP Family Medicine; Visit Provider Surgery
DX: O26.899 Other specified pregnancy related conditions, unspecified trimester (principal); R51.9 Headache, unspecified; Z3A.34 34 weeks gestation of pregnancy
CPT/HCPCS: 36415; 59025; 82565; 82570; 84156; 84450; 84460; 84520; 85027; 87631; 87804; G0463; A9270

== ENCOUNTER 2024-02-17 17:52 | Outpatient (CLI) | payer MEDICAID, SELFPAY ==
[2024-02-17 18:07] VITALS: PULSE 44; PULSE 92; O2SAT 81; O2SAT 97
[2024-02-17 18:10] VITALS: BP 128/80; PULSE 92
[2024-02-17 18:48] LABS: Amnisure Rom* Negative
--- NOTE | 2024-02-17 19:09 | PC.OBNST ---
NST Note NST Note Start: 02/17/24 17:58 Freq: ONCE Status: Active Protocol: Document 02/17/24 18:58 [facility] (Rec: 02/17/24 19:09 [facility] [id number]) NST Note 4 Para (# of births) 1 EDC 03/15/24 Gestational Age In Weeks & Days 36 Weeks & 1 Days Patient Presented with Complaint(s) of Leaking fluid Reactive Yes Appropriate for Gestational Age Yes SHERRI Do Date 02/17/24 Reactive Yes Appropriate for Gestational Age Yes SHERRI Moody Date 02/17/24 OB NST charge Yes Complete NST Note via Write Note Yes The provider's electronic signature indicates the NST is reactive/appropriate for gestational age. *Note to provider: If an addendum is required, open the patient's chart and click on the note under the Nurse/Allied Health tab.
== END 2024-02-17 19:15 | disposition home or self-care (01) ==
LOC: OB OUT 17:54 → OB 17:56
PROVIDERS: PCP Family Medicine; Visit Provider Student in an Organized Health Care Education/Training Program
DX: Z39.1 Encounter for care and examination of lactating mother (principal)
CPT/HCPCS: 59025; 84112; G0463

== ENCOUNTER 2024-02-21 15:53 | Outpatient (CLI) | payer MEDICAID, SELFPAY ==
[2024-02-21 16:04] VITALS: PULSE 73; RESP 17; TEMP 36.5; O2SAT 98
[2024-02-21 16:10] VITALS: BP 117/73; PULSE 69
[2024-02-21] MEDS: LACTATED RINGERS 1000 ML 1,000 ML 925 ML IV (16:42)
[2024-02-21 16:48] LABS: Hemoglobin* 12.8 gm/dL (12.0-16.0); Mean Corpuscular HGB Conc 32 gm/dL (32-36); Mean Corpuscular Hemoglobin 28 pg (26-34); Mean Corpuscular Volume 88 fL (80-100); Platelet Count* 221 K/uL (140-440); Red Blood Count 4.56 m/uL (4.00-5.20); White Blood Count* 10.84 K/uL (4.50-11.00)
[2024-02-21 17:01] LABS: Slide Review Reflex No
[2024-02-21] MEDS: ACETAMINOPHEN 500 MG TABLET 1000 MG PO (17:01)
[2024-02-21] MEDS: METOCLOPRAMIDE HCL 5 MG/ML INJ 10 MG IVP (17:02)
[2024-02-21 17:24] LABS: Creatinine* 0.5 mg/dL (0.5-1.5); Estimated Glomerular Filt Rate 131 ml/min
[2024-02-21 17:25] LABS: Alanine Aminotransferase* 12 U/L (4-35); Aspartate Amino Transferase* 22 U/L (12-35); Blood Urea Nitrogen* 12 mg/dL (5-24)
[2024-02-21 17:29] LABS: Total Protein Urine 10 mg/dL
[2024-02-21 17:30] LABS: Creatinine Urine 25.9 mg/dL
[2024-02-21 18:26] VITALS: BP 126/67; PULSE 93
[2024-02-21] MEDS: diphenhydrAMINE 50 MG/ML inj 25 MG IVP (18:27)
[2024-02-21 19:28] VITALS: BP 107/56; PULSE 94
--- NOTE | 2024-02-21 21:25 | PC.OBNST ---
NST Note NST Note Start: 02/21/24 21:24 Freq: Status: Active Protocol: Document 02/21/24 21:24 GRIFFIN (Rec: 02/21/24 21:25 GRIFFIN [id number]) NST Note 4 Para (# of births) 1 EDC 03/15/24 Gestational Age In Weeks & Days 36 Weeks & 5 Days Patient Presented with Complaint(s) of Headache Reactive Yes Appropriate for Gestational Age Yes SHERRI Patel RNC Date 02/21/24 Reactive Yes Appropriate for Gestational Age Yes SHERRI Blake RN Date 02/21/24 OB NST charge Yes Complete NST Note via Write Note Yes The provider's electronic signature indicates the NST is reactive/appropriate for gestational age. *Note to provider: If an addendum is required, open the patient's chart and click on the note under the Nurse/Allied Health tab.
[2024-02-23 02:08] LABS: Total Protein Urine 7 mg/dL
[2024-02-23 02:10] LABS: Creatinine Urine 49.5 mg/dL
[2024-02-23 10:11] LABS: Collection Time Urine 24 Hours
[2024-02-23 10:19] LABS: Total Protein 24 Hour Urine 155.8 mg/Day; Total Volume 24 Hour Urine 2225 ml; Urine Creatinine mg/24 Hour 0 mg/Day
== END 2024-02-21 21:15 | disposition home or self-care (01) ==
LOC: OB OUT 15:53 → OB 15:55
PROVIDERS: PCP Family Medicine; Visit Provider Family Medicine
DX: O26.893 Other specified pregnancy related conditions, third trimester (principal); R51.9 Headache, unspecified; Z3A.36 36 weeks gestation of pregnancy
CPT/HCPCS: 36415; 59025; 82565; 82570; 84156; 84450; 84460; 84520; 85027; G0463; A9270; J1200; J2765; J7120

== ENCOUNTER 2024-02-24 12:00 | Outpatient (CLI) | payer MEDICAID, SELFPAY ==
[2024-02-24] VITALS (10 sets, daily range): BP systolic 109–137; BP diastolic 56–84; PULSE 67–87; RESP 16–18; TEMP 36.5–36.9; O2SAT 98
[2024-02-24 13:29] LABS: Hematocrit 37.3 % (33.0-51.0); Hemoglobin* 11.9 gm/dL (12.0-16.0); Mean Corpuscular HGB Conc 32 gm/dL (32-36); Mean Corpuscular Hemoglobin 28 pg (26-34); Mean Corpuscular Volume 89 fL (80-100); Platelet Count* 206 K/uL (140-440); Red Blood Count 4.19 m/uL (4.00-5.20); White Blood Count* 10.95 K/uL (4.50-11.00)
[2024-02-24 13:31] LABS: Slide Review Reflex No
[2024-02-24 13:41] LABS: Total Protein Urine 8 mg/dL
[2024-02-24 13:43] LABS: Alanine Aminotransferase* 12 U/L (4-35); Aspartate Amino Transferase* 21 U/L (12-35); Blood Urea Nitrogen* 11 mg/dL (5-24); Creatinine* 0.5 mg/dL (0.5-1.5); Estimated Glomerular Filt Rate 131 ml/min
--- NOTE | 2024-02-24 15:50 | PC.OBNST ---
NST Note NST Note Start: 02/24/24 12:19 Freq: ONCE Status: Active Protocol: Document 02/24/24 15:46 WK (Rec: 02/24/24 15:49 WK [id number]) NST Note 4 Para (# of births) 1 EDC 03/15/24 Gestational Age In Weeks & Days 37 Weeks & 1 Days Patient Presented with Complaint(s) of Headache,Other Other Complaints Pt took blood pressures at work and were 130's/80's. Called to come in for evaluation. Reactive Yes RN Zackery RNC Date 02/24/24 Reactive Yes RN Cristobal RN Date 02/24/24 OB NST charge Yes Complete NST Note via Write Note Yes The provider's electronic signature indicates the NST is reactive/appropriate for gestational age. *Note to provider: If an addendum is required, open the patient's chart and click on the note under the Nurse/Allied Health tab.
== END 2024-02-24 14:10 | disposition home or self-care (01) ==
LOC: OB OUT 12:01 → OB 12:02
PROVIDERS: Family Medicine; PCP Family Medicine; Visit Provider Family Medicine
DX: O26.893 Other specified pregnancy related conditions, third trimester (principal); R51.9 Headache, unspecified; R03.0 Elevated blood-pressure reading, without diagnosis of hypertension; Z3A.37 37 weeks gestation of pregnancy
CPT/HCPCS: 36415; 59025; 82565; 82570; 84156; 84450; 84460; 84520; 85027; G0463

== ENCOUNTER 2024-03-02 17:26 | Outpatient (CLI) | payer MEDICAID, SELFPAY ==
[2024-03-02 17:42] VITALS: BP 125/83; PULSE 82
[2024-03-02 19:36] LABS: Appearance Urine Clear (Clear); Bilirubin Urine Negative (Negative); Blood Urine Negative (Negative); Color Urine Yellow (Yellow); Glucose Urine Negative (Negative); Ketones Urine Negative (Negative); Leukocyte Esterase Urine Negative (Negative); Nitrite Urine Negative (Negative); Protein Urine Negative (Negative); Specific Gravity Urine 1.015 (1.000-1.030); Urobilinogen Urine 0.2 (0.2-1.0); pH Urine 7.5 (5.0-8.5)
--- NOTE | 2024-03-02 21:00 | PC.OBNST ---
NST Note NST Note Start: 03/02/24 17:30 Freq: ONCE Status: Active Protocol: Document 03/02/24 20:59 ABP (Rec: 03/02/24 21:00 ABP [id number]) NST Note 4 Para (# of births) 1 EDC 03/15/24 Gestational Age In Weeks & Days 38 Weeks & 1 Days Patient Presented with Complaint(s) of Contractions/cramping Reactive Yes RN Jayson Aly RN Date 03/02/24 Reactive Yes SHERRI Brewster RN Date 03/02/24 OB NST charge Yes Complete NST Note via Write Note Yes The provider's electronic signature indicates the NST is reactive/appropriate for gestational age. *Note to provider: If an addendum is required, open the patient's chart and click on the note under the Nurse/Allied Health tab.
== END 2024-03-02 20:35 | disposition home or self-care (01) ==
LOC: OB OUT 17:26 → OB 17:26
PROVIDERS: PCP Family Medicine; Visit Provider Family Medicine
DX: O47.1 False labor at or after 37 completed weeks of gestation (principal); Z3A.38 38 weeks gestation of pregnancy
CPT/HCPCS: 59025; 81003; G0463

== ENCOUNTER 2024-03-04 04:30 | Inpatient (IN) | payer MEDICAID, SELFPAY ==
[2024-03-04] VITALS (50 sets, daily range): BP systolic 103–151; BP diastolic 57–101; PULSE 65–181; RESP 16–18; TEMP 36.4–36.8; O2SAT 91–100; BMI 29.2
[2024-03-04] MEDS: miSOPROStoL 25 MCG/0.25 TABLET PO ×3 (05:29→09:52)
--- NOTE | 2024-03-04 07:05 | P.OBHP_ITS ---
OB - H&P: HPI Labor/Induction History of Present Illness Time Seen by Provider: 07:05 Date Seen: 03/04/24 Chief Complaint: The patient is a 28 year old 4 para 1021 at 38.3 weeks gestation by LMP and consistent with 8 week ultrasound, who presents with SROM. Chief complaint: maternity : 4 Para: 1 Narrative: Gini Cade is a 28 year old female who presents with SROM at home approximately 3am. Patient had large gush of fluid at 3am at home. Another large gush in the parking lot and was grossly ruptured upon arrival. She has been cramping off and on the last few days. She has intermittent headaches, but last hooks was yesterday (resolved with tylenol). She has history of intermittent proteinuria even outside of . Most recent protein/cr ratio was normal. History of preeclampsia with severe features (has been on asa prevention). Had headache, hypertension, proteinuria that made diagnosis. Was on Magnesium during last labor. Has history of hemorrhage (500) requiring pitocin and cytotec last . has history of placenta previa. Placenta was 2.48 cm away from os on lass ultrasound, she was cleared for vaginal delivery with restrictions by [facility] History of Present Dating criteria: based on LMP care: good care Ultrasounds: normal 1st trimester US and normal mid trimester US Medical complications: none Labs Blood type: O (+) positive Rubella: immune RPR/VDLR: nonreactive GBS status: negative HBsAG: negative Narrative: had postiive 1 hour GTT (172). 3 hour were all under threshold. Review of Systems Status of ROS: Reports: 10 or more systems reviewed and unremarkable except as noted in History and below Meds Home Medications and Allergies Home Medications Medication Instructions Recorded Confirmed Type ondansetron 4 mg disintegrating 4 mg PO Q8H PRN nausea/vomiting 02/11/23 03/02/24 History tablet vitamin with calcium 1 tab PO DAILY 02/11/23 03/02/24 History no.72-iron 27 mg-folic acid 1 mg tablet ( Vitamins Plus Low Iron) triamcinolone acetonide 0.1 % 1 applic topical BID 02/11/23 03/02/24 History lotion acetaminophen 325 mg tablet 975 mg PO Q6H PRN 12/30/23 03/02/24 History aspirin 81 mg tablet,delayed 81 mg PO DAILY 12/30/23 03/02/24 History release diphenhydramine HCl 25 mg capsule 25 mg PO Q4-6H PRN 02/24/24 03/02/24 History (Benadryl) Allergies Allergy/AdvReac Type Severity Reaction Status Date / Time No Known Drug Allergies Allergy Verified 02/06/24 10:11 OB - H&P: Exam Physical Exam: Vital signs: Temp Pulse Resp BP Pulse Ox 98.2 F 86 16 128/82 94 03/04/24 04:47 03/04/24 04:47 03/04/24 04:47 03/04/24 04:47 03/04/24 04:47 Constitutional: Constitutional: no acute distress Routine HEENT Exam: Head: Present atraumatic and normocephalic ENT: Present mucous membranes moist Routine Neck Exam: Neck: Present full ROM Detailed Neck Exam: Thyroids: Thyroid: Present normal Routine Respiratory Exam: Respiratory: Present CTA bilaterally Routine Cardiovascular Exam: Cardiovascular: RRR, S1 and S2 Detailed Labor and Delivery Exam: Patient Gravid: Yes Dilation (cm): 0 Contraction intensity: Mild Fetus (Single): Amniotic Membrane Status: SROM (0300) Amniotic Membrane Fluid Description: Clear Heart Rate Baseline: 135 Monitor Accelerations: Present Monitor Decelerations: None Supervisory Air Intercept Controller Variability: Moderate (6-25) Routine Back/Spine/Pelvis Exam: Back/Spine: full ROM Routine Skin Exam: Present intact Routine Neurological Exam: Present alert and oriented X3 Routine Psychiatric Exam: Present normal affect OB - Problem Based A/P Additional Plan (1) SROM (spontaneous rupture of membranes): Start date: 03/04/24 Start time: 03:00 Problem details: presented grossly ruptured, clear fluid Status: Acute (2) Term : Status: Acute Plan - given unfavorable cervix, oral cytotec initiated. - When favorable, will change to pitocin - labs and IV now - monitor for any signs/symptoms of preeclampsia given history - Will consider TXA at delivery. Will have pitocin/cytotec in room. Delivery/Labor/Induction Plan Plan: induction Induction method: per misoprostol protocol
[2024-03-04 07:41] LABS: Basophils Absolute Auto 0.02 K/uL (0.00-0.30); Basophils Percent Auto 0.2 % (0.0-3.0); Eosinophils Absolute Auto 0.06 K/uL (0.00-0.50); Eosinophils Percent Auto 0.6 % (0.0-7.0); Hematocrit 38.6 % (33.0-51.0); Hemoglobin* 12.3 gm/dL (12.0-16.0); Immature Granulocytes Abs Auto 0.09 K/uL (0.00-0.30); Immature Granulocytes Pct Auto 0.8 %; Lymphocytes Percent Auto 15.9 % (20-44); Mean Corpuscular HGB Conc 32 gm/dL (32-36); Mean Corpuscular Hemoglobin 28 pg (26-34); Mean Corpuscular Volume 89 fL (80-100); Neutrophils Percent Auto 77.5 % (42.0-72.0); Platelet Count* 220 K/uL (140-440); RDW Coefficient of Variation % 14.7 % (11.5-15.5); Red Blood Count 4.33 m/uL (4.00-5.20); White Blood Count* 10.76 K/uL (4.50-11.00)
[2024-03-04 07:46] LABS: Slide Review Reflex No
[2024-03-04 08:33] LABS: Creatinine* 0.5 mg/dL (0.5-1.5); Est. Creatinine Clearance* 144.65; Estimated Glomerular Filt Rate 131 ml/min
[2024-03-04 08:34] LABS: Alanine Aminotransferase* 14 U/L (4-35); Aspartate Amino Transferase* 18 U/L (12-35); Blood Urea Nitrogen* 9 mg/dL (5-24)
[2024-03-04] MEDS: LACTATED RINGERS 1000 ML 1,000 ML 125 ML IV ×2 (12:28→17:07)
[2024-03-04] MEDS: OXYTOCIN 30 unit/500 ML in NS 30 UNIT/500 ML BAG IVPB (12:29)
[2024-03-04] MEDS: ROPIVACAINE 0.2% 100 ml 100 ML 12 MG EPIDURAL (17:00)
--- NOTE | 2024-03-04 17:08 | P.ANBPRC_ITS ---
[facility] Social History (Updated 03/04/24 @ 07:23 by Joanna Carter MD) What is your current living situation?: I presently have a place to live Problems where you live: no known problems In the past 12 months, utilities in danger of being shut off: no In past 12 months, lack of transportation kept you from medical appts, meetings, work, or getting things needed for daily living: no In the past 12 mos, have been you worried that your food would run out before you had money to buy more?: never true In the past 12 mos, the food you bought just didn't last and you didn't have money to buy more?: never true Smoking Status: Former smoker What tobacco products do you use: cigarettes Smoking quit date/years: <= 15 years ago Do you use any of these nicotine containing products: None Second hand tobacco smoke exposure: No How often do you have a drink containing alcohol: never How often do you have six or more drinks on one occasion: Never AUDIT-C Alcohol total score: 0 Non-prescribed substance use: denies use How often does anyone, including family, friends and others, physically hurt you : never How often does anyone, including family, friends and others, insult or talk down to you: never How often does anyone, including family, friends and others, threaten you with harm: never How often does anyone, including family, friends and others, scream or curse at you: never service: No Meds Home Medications and Allergies Home Medications Medication Instructions Recorded Confirmed Type ondansetron 4 mg disintegrating 4 mg PO Q8H PRN nausea/vomiting 02/11/23 03/02/24 History tablet vitamin with calcium 1 tab PO DAILY 02/11/23 03/02/24 History no.72-iron 27 mg-folic acid 1 mg tablet ( Vitamins Plus Low Iron) triamcinolone acetonide 0.1 % 1 applic topical BID 02/11/23 03/02/24 History lotion acetaminophen 325 mg tablet 975 mg PO Q6H PRN 12/30/23 03/02/24 History aspirin 81 mg tablet,delayed 81 mg PO DAILY 12/30/23 03/02/24 History release diphenhydramine HCl 25 mg capsule 25 mg PO Q4-6H PRN 02/24/24 03/02/24 History (Benadryl) Allergies Allergy/AdvReac Type Severity Reaction Status Date / Time No Known Drug Allergies Allergy Verified 02/06/24 10:11 Results Labs Labs: Laboratory Results - last 24 hr 03/04/24 07:30 WBC 10.76 RBC 4.33 Hgb 12.3 Hct 38.6 MCV 89 MCH 28 MCHC 32 RDW Coeff of Jase 14.7 Plt Count 220 Neut % (Auto) 77.5 H Lymph % (Auto) 15.9 L [place] % (Auto) 5.0 Eos % (Auto) 0.6 Baso % (Auto) 0.2 Neut # (Auto) 8.30 H Lymph # (Auto) 1.70 [place] # (Auto) 0.50 Eos # (Auto) 0.06 Baso # (Auto) 0.02 Abs Immat Gran (auto) 0.09 Imm/Tot Granulo (auto) 0.8 BUN 9 Creatinine 0.5 Estimated Creat Clear 144.65 Estimated GFR 131 AST 18 ALT 14 Blood Type O Positive Antibody Screen NEGATIVE Vital Signs Vital Signs: Last Vital Signs Temp 97.5 F L 03/04/24 13:53 Pulse 91 03/04/24 17:06 Resp 16 03/04/24 11:59 BP 125/64 03/04/24 17:06 Pulse Ox 94 03/04/24 04:47 Weight: 77.111 kg Height: 162.56 cm Anesthesia Procedures Epidural Insertion Patient Location: OB Start Time: 16:15 Stop Time: 17:00 Start Date: 03/04/24 Stop Date: 03/04/24 Reason for Block: procedure for pain Patient Position: sitting Performed By: Solange Pascual Preanesthetic Checklist: IV checked, risks and benefits discussed, monitors and equipment checked, timeout performed and anesthesia consent Prep: chlorhexidine gluconate Monitoring: blood pressure monitoring, continuous pulse oximetry and heart rate Approach: midline Vertebral Space: lumbar (1-5) Epidural Technique: ESTHER saline Needle Type: Tuohy needle Injection Technique: continuous catheter Needle gauge: 17 Needle Length (cm): 10 cm Needle Insertion Depth (cm): 8 Catheter Gauge: 19 Catheter Type: multi-orifice Catheter at skin depth (cm): 13 Test Dose Result: negative and lidocaine 1.5% with epinephrine 1 to 200,000
[2024-03-04] MEDS: OXYTOCIN 30 unit/500 ML in NS 30 UNIT/500 ML BAG 300 UNIT IVPB (18:05)
--- NOTE | 2024-03-04 18:46 | W.PM.OBVAGDE ---
OB Procedure Vag Delivery Mother Details Mother Details: The patient is a 28 year-old, 4, Para 1, admitted on 03/04/24 at 38.3 Days gestation. : 4 Para: 1 Weeks Gestation: 38.3 Admission Date: 03/04/24 Additional Details Amniotic Membrane Status: SROM (0300) Amniotic Membrane Rupture Date: 03/04/24 Amniotic Membrane Rupture Time: 03:00 Amniotic Membrane Fluid Description: Clear Analgesia/Anesthesia Type: Epidural Waterbirth: No Pitcoin: Yes Intrapartal Events: Labor Induction and Excessive Bleeding Induction Method: per misoprostol protocol and per pitocin protocol Labor Onset: 16:30 Complete: 17:50 Pushin:55 Heart: heart tones during second stage had early/late decels with pushing, recovered well between. Good variability Delivery Details Delivery Date: 03/04/24 Delivery Time: 18:05 Route of delivery: Infant Gender: Male Viability: Alive; Heart Rate Present Position at Delivery: OA Delivery Details: Patient was admitted for SROM at 0300 this am. Patient's cervix was unfavorable. Received cytotec x 3 and then progressed well with low dose pitocin. She received epidural for analgesia with good results. Patient became complete at 1750 and started pushing at 1755. She pushed very effectively delivering a viable male infant over intact perineum at 1805. Patient had 30 second shoulder dystocia, resolved with Randy and delivery of posterior arm. Infant was placed on maternal abdomen.? Cord was clamped and cut after a 30-60 second delay. Nose and mouth were bulb suctioned.? Infant weight pending. Patient unfortunately had a significant hemorrhage. Pitocin and cytotec were immediately given. Placenta was delivered. TXA and Hemabate were also given. I consulted Dr. Reese Mason who came to bedside to evalaute for cervical laceration. Fortunately there were no lacerations and bleeding slowed. 1 Minute Interval Total Score: 8 5 Minute Interval Total Score: 9 Additional Details Shoulder Dystocia: Yes Placenta Delivery Time: 18:10 Placental Delivery Description: Spontaneous Delivery repair: Vicryl Procedure Done: Global Blood Loss: 1,055 Laceration: Perineal - 2nd Degree Blood Loss Measurement Type: QBL Bakri Used: No Sponge/Need Count Correct: Yes Cord Vessel Description: 3 Vessels Event Summary Status: Mother and were stable after delivery. Disposition: no change
[2024-03-04] MEDS: CARBOPROST TROMETHAMINE 250 MCG/ML INJ IM (19:06)
[2024-03-04] MEDS: TRANEXAMIC ACID 100 MG/ML INJ 1000 MG IV (19:06)
[2024-03-04] MEDS: LIDOCAINE 1 % PF 30 ML INJECTION (19:06)
--- NOTE | 2024-03-04 19:07 | PM.OBPNVD1 ---
OB - PN:Subj Subjective Time Seen by Provider: 19:07 Date Seen: 03/04/24 Patient comments OB post-: no complaints and flatus present [place] infant status: OB - PN: Obj Exam Physical Exam: Vital signs: Temp Pulse Resp BP Pulse Ox 97.8 F 141 H 16 125/82 98 03/04/24 16:08 03/04/24 18:55 03/04/24 11:59 03/04/24 18:55 03/04/24 18:44 Constitutional: Constitutional: no acute distress Routine HEENT Exam: Head: Present atraumatic Routine Respiratory Exam: Respiratory: Present CTA bilaterally Routine Cardiovascular Exam: Cardiovascular: Present S1, S2 and tachycardia Routine Abdominal Exam: Fundus: Present firm Routine Psychiatric Exam: Psychiatric: Present normal affect OB - PN: Obj Data Labs Labs: Laboratory Results - last 24 hr 03/04/24 07:30 WBC 10.76 RBC 4.33 Hgb 12.3 Hct 38.6 MCV 89 MCH 28 MCHC 32 RDW Coeff of Jase 14.7 Plt Count 220 Neut % (Auto) 77.5 H Lymph % (Auto) 15.[address] [place] % (Auto) 5.0 Eos % (Auto) 0.6 Baso % (Auto) 0.2 Neut # (Auto) 8.30 H Lymph # (Auto) 1.70 [place] # (Auto) 0.50 Eos # (Auto) 0.06 Baso # (Auto) 0.02 Abs Immat Gran (auto) 0.09 Imm/Tot Granulo (auto) 0.8 BUN 9 Creatinine 0.5 Estimated Creat Clear 144.65 Estimated GFR 131 AST 18 ALT 14 Blood Type O Positive Antibody Screen NEGATIVE OB - PN: A/P Delivery Assessment and Plan (1) Term : Status: Acute (2) (normal spontaneous vaginal delivery): Status: Acute (3) hemorrhage of vagina: Problem details: QBL 1055, received Cytotec, pitocin, hemabate, TXA Status: Acute Assessment and Plan: - hemoglobin now, repeat hemoglobin in am. - consented for blood in case needed overnight. (4) Gestational hypertension: Problem details: Asymptomatic, labs reassuring. Not in severe range Status: Acute Assessment and Plan: - recheck preeclampsia labs daily, will recheck now Plan - monitor bleeding - monitor BP, has history of preeclampsia with severe features with first Plan Plan: routine care
[2024-03-04] MEDS: miSOPROStoL 800 MCG/4 TABLET PR (19:09)
[2024-03-04 19:37] LABS: Hematocrit 36.3 % (33.0-51.0); Hemoglobin* 11.6 gm/dL (12.0-16.0); Mean Corpuscular HGB Conc 32 gm/dL (32-36); Mean Corpuscular Hemoglobin 29 pg (26-34); Mean Corpuscular Volume 91 fL (80-100); Platelet Count* 240 K/uL (140-440); White Blood Count* 18.07 K/uL (4.50-11.00)
[2024-03-04 19:38] LABS: Slide Review Reflex No
[2024-03-04 19:52] LABS: Alanine Aminotransferase* 15 U/L (4-35); Aspartate Amino Transferase* 19 U/L (12-35)
[2024-03-04 20:01] LABS: Creatinine* 0.6 mg/dL (0.5-1.5); Est. Creatinine Clearance* 120.54; Estimated Glomerular Filt Rate 125 ml/min
[2024-03-04 20:02] LABS: Blood Urea Nitrogen* 12 mg/dL (5-24)
[2024-03-04] MEDS: IBUPROFEN 600 MG TABLET PO (21:47)
[2024-03-05 01:52] VITALS: BP 128/73; PULSE 118; RESP 20; TEMP 36.5; O2SAT 98
[2024-03-05] MEDS: ACETAMINOPHEN 500 MG TABLET 1000 MG PO ×4 (02:13→21:49)
[2024-03-05 04:58] VITALS: BP 97/61; PULSE 84; RESP 18; TEMP 36.8; O2SAT 97
[2024-03-05] MEDS: IBUPROFEN 600 MG TABLET PO ×3 (05:13→19:16)
[2024-03-05 06:42] LABS: Hemoglobin* 9.3 gm/dL (12.0-16.0)
[2024-03-05 08:13] VITALS: BP 111/74; PULSE 97; RESP 16; TEMP 36.4; O2SAT 97
[2024-03-05] MEDS: DOCUSATE SODIUM 100 MG CAPSULE PO (08:28)
--- NOTE | 2024-03-05 08:28 | PM.OBPNVD1 ---
OB - PN:Subj Subjective Time Seen by Provider: 07:00 Date Seen: 03/05/24 Patient comments OB post-: pain well controlled and tolerating diet status: and doing well [place] feeding status: exclusively Narrative: Patient is feeling well, only tired. Pain is well controlled. Bleeding is appropriate. She denies dizziness, sob. NO Headache or symptoms of preeclampsia. OB - PN: Obj Exam Physical Exam: Vital signs: Temp Pulse Resp BP Pulse Ox O2 Del Method 97.6 F 97 16 111/74 97 Room Air 03/05/24 08:13 03/05/24 08:13 03/05/24 08:13 03/05/24 08:13 03/05/24 08:13 03/05/24 08:13 Constitutional: Constitutional: no acute distress Routine HEENT Exam: Head: Present atraumatic ENT: Present mucous membranes moist Routine Neck Exam: Neck: Present full ROM Routine Respiratory Exam: Respiratory: Present CTA bilaterally Routine Cardiovascular Exam: Cardiovascular: Present RRR, S1 and S2; Absent murmur Routine Back/Spine/Pelvis Exam: Back/Spine: Present full ROM Routine Neurological Exam: Neurological: Present alert and oriented X3 Routine Psychiatric Exam: Psychiatric: Present normal affect OB - PN: Obj Data Labs Labs: Laboratory Results - last 24 hr 03/04/24 03/04/24 03/05/24 07:30 19:22 06:17 WBC 18.07 H RBC 4.00 Hgb 11.6 L 9.3 L Hct 36.3 MCV 91 MCH 29 MCHC 32 Plt Count 240 BUN 9 12 Creatinine 0.5 0.6 Estimated Creat Clear 144.65 120.54 Estimated GFR 131 125 AST 18 19 ALT 14 15 Blood Type O Positive Antibody Screen NEGATIVE OB - PN: A/P Delivery Assessment and Plan (1) Term : Status: Acute (2) (normal spontaneous vaginal delivery): Status: Acute (3) hemorrhage of vagina: Problem details: QBL 1055, received Cytotec, pitocin, hemabate, TXA Status: Acute Assessment and Plan: - hemoglobin was 9.3 this morning - will recheck tonight at 6pm (4) Gestational hypertension: Problem details: Asymptomatic, labs reassuring. Not in severe range. Has history of preeclampsia with severe features with first . Status: Acute Assessment and Plan: - will recheck preeclampsia labs this evening Plan - continue to monitor. Plan day: 1 Plan: routine care
[2024-03-05 12:46] VITALS: BP 107/75; RESP 16; TEMP 36.5; O2SAT 97
[2024-03-05 16:32] VITALS: BP 107/74; PULSE 99; RESP 18; TEMP 36.8; O2SAT 97
[2024-03-05] MEDS: SODIUM CHLORIDE 0.9 % (FLUSH) 10 ML SYRINGE IVF (16:48)
[2024-03-05 18:58] LABS: Hematocrit 28.2 % (33.0-51.0); Mean Corpuscular HGB Conc 32 gm/dL (32-36); Mean Corpuscular Hemoglobin 29 pg (26-34); Mean Corpuscular Volume 91 fL (80-100); Platelet Count* 194 K/uL (140-440); White Blood Count* 12.46 K/uL (4.50-11.00)
[2024-03-05 19:05] LABS: Slide Review Reflex No
[2024-03-05 19:13] LABS: Alanine Aminotransferase* 16 U/L (4-35); Aspartate Amino Transferase* 25 U/L (12-35); Blood Urea Nitrogen* 12 mg/dL (5-24); Creatinine* 0.7 mg/dL (0.5-1.5); Est. Creatinine Clearance* 103.32; Estimated Glomerular Filt Rate 121 ml/min
[2024-03-05 20:19] VITALS: BP 116/77; PULSE 107; RESP 18; TEMP 36.6; O2SAT 98
[2024-03-06] VITALS: BP 95/62; PULSE 98; RESP 18; TEMP 36.4; O2SAT 98
[2024-03-06] MEDS: IBUPROFEN 600 MG TABLET PO ×3 (01:18→14:57)
[2024-03-06 01:28] LABS: Rapid Plasma Reagin (RPR) Non Reactive (Non Reactive)
[2024-03-06 04:53] VITALS: BP 100/63; PULSE 86; RESP 16; TEMP 36.8; O2SAT 97
[2024-03-06] MEDS: ACETAMINOPHEN 500 MG TABLET 1000 MG PO ×2 (04:59→11:57)
[2024-03-06 06:36] LABS: Hematocrit 23.9 % (33.0-51.0); Mean Corpuscular HGB Conc 32 gm/dL (32-36); Mean Corpuscular Hemoglobin 29 pg (26-34); Mean Corpuscular Volume 91 fL (80-100); Platelet Count* 156 K/uL (140-440); Red Blood Count 2.64 m/uL (4.00-5.20); White Blood Count* 10.79 K/uL (4.50-11.00)
[2024-03-06 06:37] LABS: Hemoglobin* 7.7 gm/dL (12.0-16.0); Slide Review Reflex No
[2024-03-06 06:48] LABS: Alanine Aminotransferase* 13 U/L (4-35); Aspartate Amino Transferase* 22 U/L (12-35); Creatinine* 0.5 mg/dL (0.5-1.5); Est. Creatinine Clearance* 144.65; Estimated Glomerular Filt Rate 131 ml/min
[2024-03-06] MEDS: DOCUSATE SODIUM 100 MG CAPSULE PO (07:49)
[2024-03-06 07:56] VITALS: BP 96/69; PULSE 84; RESP 16; TEMP 36.3
--- NOTE | 2024-03-06 12:36 | P.DS_ITS ---
DS: Providers Provider Time Seen by Provider: 07:30 Date Seen: 03/06/24 Date of admission: 03/04/24 04:30 Primary care physician: Joanna Carter MD Admitting Clinician: Joanna Carter MD Attending Physician on discharge: Nissa Garnett MD Date of Discharge: 03/06/24 DS: Diagnosis Discharge Diagnosis (1) Term : Status: Acute (2) (normal spontaneous vaginal delivery): Status: Acute (3) hemorrhage of vagina: Status: Acute Problem details: QBL 1055, received Cytotec, pitocin, hemabate, TXA (4) Gestational hypertension: Status: Acute Problem details: Diagnosed during labor. Asymptomatic, labs reassuring. Not in severe range. Has history of preeclampsia with severe features with first . Exam Narrative: Exam Narrative: General appearance: Well-appearing adult female. Alert, oriented and appropriate . Sitting up in hospital bed. HEENT: EOMI, no conjunctival injection or discharge. MMM. Neck: Supple. CV: RRR, no rubs, murmurs or extra heart sounds. Pulm: CTAB, no wheezes, rales or rhonchi. Abdomen: Soft, non-tender. Fundus palpated 1-2 cm below the umbilicus. MSK: Moving all extremities. Ext: Warm and well-perfused. No LE edema. Skin: No rashes appreciated over exposed skin. Neuro: Grossly normal strength and sensation. No focal deficits. Psych: Normal affect. Const: Vital Signs, click to edit/add: Vital Signs - 24 hr 03/05/24 12:46 03/05/24 16:32 03/05/24 20:19 Temperature 97.7 F 98.3 F 97.9 F Pulse Rate [Pulse Oximeter] 99 107 H Respiratory Rate 16 18 18 Blood Pressure [Le ft Arm] 107/75 107/74 116/77 Pulse Oximetry 97 97 98 Oxygen Delivery Me thod Room Air Room Air Room Air 03/06/24 00:00 03/06/24 04:53 03/06/24 07:56 Temperature 97.6 F 98.2 F 97.4 F L Pulse Rate [Pulse Oximeter] 98 86 84 Respiratory Rate 18 16 16 Blood Pressure [Le ft Arm] 95/62 100/63 96/69 Pulse Oximetry 98 97 Oxygen Delivery Me thod Room Air Room Air OB - DS: Summary Hospital Course Hospital Course: The patient is a 28 year old G 2 P 1021 at 38+3 weeks gestation that was admitted to the Center on 03/04/24 for SROM. She had a vaginal delivery complicated by PPH. Hgb arely of 7.7 on 03/06. Asymptomatic. Plan for IV iron as an outpatient. Hx of severe pre-eclampsia requiring magnesium with prior , diagnosed with gestational hypertension during labor. However, post- blood pressures and labs remained normal. She delivered a viable male infant. She is breast feeding. the patient has done well. Peripartum Data Infant delivery method: Vaginal Laceration description: Perineal - 2nd Degree [place] Infant Gender: Male Infant Discharge Plan: Home Status at Discharge Functional status at discharge: independent ambulation Overall status at discharge: patient is progressing back to baseline Time Spent with Patient Time attestation: Total time spent providing and/or coordinating discharge services: Time spent: Less than 30 minutes Discharge Plan Discharge Disposition: Home, Self-Care Date of Admission: 03/04/24 04:30 Attending Provider on Discharge: Nissa Garnett Primary Care Provider: Joanna Carter Condition: Improved Anticipated Discharge Date/Time: 03/06/24 06:41 Discharge Medications: New acetaminophen 500 mg Tablet 1,000 mg PO Q6H PRNQty: 30 0RF docusate sodium 100 mg Capsule 100 mg PO DAILY Qty: 30 0RF ibuprofen 600 mg Tablet 600 mg PO Q6H PRNQty: 30 0RF Continued triamcinolone acetonide 0.1 % lotion 1 applic TOPICAL BID Vitamin Plus Low Iron 27 mg iron- 1 mg tablet 1 tab PO DAILY Discontinued diphenhydramine HCl [Benadryl] 25 mg capsule 25 mg PO Q4-6H PRN ondansetron 4 mg tablet,disintegrating 4 mg PO Q8H PRN (Reason: nausea/vomiting) aspirin 81 mg tablet,delayed release (DR/EC) 81 mg PO DAILY acetaminophen 325 mg tablet 975 mg PO Q6H PRN Discharge Orders: Discharge Order (Routine); Ordered 03/06/24 Ordered By: Nissa Garnett Patient Education: OB Vaginal/Breast Feeding Additional Instructions: RN from outpatient clinic at [facility] will call you next week to make an appointment for an iron infusion. Activity Level: Activity as Tolerated Discharge Diet: Regular Follow Up Appointments: Joanna Carter MD [Primary Care Provider] - ([facility] with mary Albaradot for baby and recheck BP 03/11/24) Forms: [id number] Info Instructions
== END 2024-03-06 16:09 | disposition home or self-care (01) | DRG 806 ==
LOC: OB OUT 03-06 08:22
PROVIDERS: Admitting Provider Family Medicine; PCP Family Medicine; Visit Provider Family Medicine
DX: O66.0 Obstructed labor due to shoulder dystocia (principal); O72.1 Other immediate postpartum hemorrhage; O70.1 Second degree perineal laceration during delivery; O13.4 Gestational [pregnancy-induced] hypertension without significant proteinuria, complicating childbirth; Z3A.38 38 weeks gestation of pregnancy; Z37.0 Single live birth
CPT/HCPCS: 01967; 36415; 59200; 82565; 84450; 84460; 84520; 85018; 85025; 85027; 86592; 86850; 86900; 86901; 88307; G0463; A9270; J0665; J2001; J2371; J2795; J7120

== ENCOUNTER 2025-01-26 08:02 | Emergency (ER) | payer MEDICAID, SELFPAY ==
[2025-01-26 08:04] VITALS: BP 113/69; PULSE 84; RESP 18; TEMP 37.5; O2SAT 97; BMI 23.0
--- OUTSIDE RECORDS SUMMARY | 2025-01-26 08:04 | XMS_ITS | Clinical Summary ---
Author Organization [facility] Address [address] , [address] [place] [address] Phone Care Team Providers Care Credit Administrator Name Role Phone MedRec, MedRec Unavailable Conditions or Problems Problem Name Problem Code Onset Date Status Entry Date Provider Comment Standard Description Annotate Exophthalmos , bilateral 71487095 (SNOMED CT) Active Vipul Bagley MD Exophthalmos Tension headache 186346895 (SNOMED CT) Active Vipul Bagley MD Tension-type headache Medications Medication Instructions Start Date Stop Date Generic Name NDC Provider PROPRANOLOL HCL ER 60 MG [id number] Take 1 capsule by mouth at bedtime 1 propranolol [id number] Antonio Guerra PA-C OMEPRAZOLE [address] [facility] omeprazole [id number] Vipul Bagley MD DULOXETINE HCL 60 MG CPEP duloxetine [id number] Vipul Bagley MD DULOXETINE HCL 30 MG CPEP duloxetine [id number] Vipul Bagley MD ONDANSETRON HCL 4 MG TABS ondansetron hcl [id number] Vipul Bagley MD Medications Administered No information available. Allergies, Adverse Reactions, Alerts Observed no known allergies at Results Date Name Value Unit Range Flag Description Lab Report: 06/28/21 - 03/12/ 2 ABSOLUTE MON 0.4 10*3/uL Monocyte s [#/volume] in Blood GLOBULIN SER 3.7 Globulin , Serum PH, URINE 6.0 PH, URINE ANASCR IFA Negative NASREEN SCREE N, IFA EGFR NOT AFA >60 mL/min/1. 73m2 Glomerular filtratio n rate/1.73 sq M.predicted among non-blacks [Volume Rate/Area] in Serum, Plasma or Blood by Creatinine-based formula (MDRD) LEUES Negative Leukocyte es terase [Presence] in Urine by Test strip ABS EOS 0.1 {Cells}/u L Eosinophils [#/volume] in Blood TB QUANT Negative Mycobacteri um tuberculosis stimulated gamma interferon [Interpretation] in Blood Qualitative CA 9.8 mg/dL Calcium [Mass /volume] in Serum or Plasma KETONES UA Trace mg/dL Ketones [M ass/volume] in Urine by Test strip ABSOLUTE BAS 0.0 10*3/uL Basophil s [#/volume] in Blood URBC 0-2 /[HPF] Erythrocytes [#/area] in Urine sediment by Microscopy high power field ABS LYMPHOCY 2.1 10*3/uL Absolute Lymphocytes ABS NEUTROPH 5.8 10*3/uL Neutroph ils [#/volume] in Blood GFR >60 mL/min Glomerular fi ltration rate/1.73 sq M.predicted among non-blacks [Volume Rate/Area] in Serum, Plasma or Blood by Creatinine-based formula (MDRD) BLD STL Negative Hemoglobin.g astrointe stinal [Presence] in Stool % BASO AUTO 0.4 % basophils as percent of blood leukocytes, automated count % EOS AUTO 0.6 % Eosinophil s/100 leukocytes in Blood by Automated count CO2 TOTAL 24 mmol/L carbon diox imelda, serum, total GLUCOSE SER 98 mg/dL Glucose [ Mass/volume] in Serum or Plasma BILI INDIREC 0.1 mg/dL bilirubi n, serum, indirect MPV 10.9 fL Platelet mean volume [Entitic volume] in Blood by Tripp UA COLOR Yellow Color of Uri ne CRP 0.14 mg/dL C reactive pr otein [Mass/volume] in Serum or Plasma BUN/CREAT 13 Urea nitrogen/Creatinine [Mass Ratio] in Serum or Plasma CREATININE U 336.5 mL/min Creatini ne [Mass/volume] in Urine MONOCYTE % 4.5 % Monocytes/ 100 leukocytes in Blood by Automated count HYAL CAST UR 3-5 /[LPF] Hyaline casts [#/area] in Urine sediment by Microscopy low power field BACTERIA URN Many Bacteria [#/area] in Urine sediment by Microscopy high power field MCH 27.9 pg MCH [Entitic mass] by Automated count RDW 14.5 % Erythrocyte distribution width [Ratio] by Automated count MCHC 32.6 % MCHC [Mass/vo lume] by Automated count WBCS MICRO U 6-10 {Cells}/[ HPF] WBC urine on microscopy NITRITE URN Negative Nitrite [Presence] in Urine by Test strip PMN % 69.6 % Neutrophils/1 00 leukocytes in Blood by Automated count MCV 86 fL MCV [Entitic volume] by Automated count ANION GAP 11 Anion gap 4 in Serum or Plasma SODIUM 140 mmol/L Sodium [Moles /volume] in Serum or Plasma A/G RATIO 1.2 Albumin/Samira bulin [Mass Ratio] in Serum or Plasma PAP SMEAR NIL General cat egories [Interpretation] of Cervical or vaginal smear or scraping by Cyto stain WBC 8.4 10*3/mm3 Leukocytes [ #/volume] in Blood by Automated count RBC 5.05 10*6/mm3 Erythrocytes [#/volume] in Blood by Automated count PLATELETS 269 10*3/mm3 Platelets [#/volume] in Blood by Automated count HGB 14.1 g/dL Hemoglobin [Mass/volume] in Blood HCT 43.2 % Hematocrit [V olume Fraction] of Blood by Automated count ESR 14 mm/h Erythrocyte sedimentation rate by Westergren method BILI TOTAL 0.4 mg/dL Bilirubin. total [Mass/volume] in Serum or Plasma SGPT (ALT) 41 U/L Alanine aminotransferase [Enzymatic activity/volume] in Serum or Plasma SGOT (AST) 32 U/L Aspartate aminotransferase [Enzymatic activity/volume] in Serum or Plasma PROTEIN, TOT 8.3 g/dL Protein [Mass/volume] in Serum or Plasma POTASSIUM 4.1 mmol/L Potassium [Moles/volume] in Serum or Plasma TSH 1.26 u[iU]/mL Thyrotropin [Units/volume] in Serum or Plasma FERRITIN 18.9 ng/mL Ferritin [Mass/volume] in Serum or Plasma BILI DIRECT 0.1 mg/dL Bilirubin .direct [Mass/volume] in Serum or Plasma CREATININE 0.76 mg/dL Creatinine [Mass/volume] in Serum or Plasma CHLORIDE 105 mmol/L Chloride [Moles/volume] in Serum or Plasma BUN 10 mg/dL Urea nitrogen [Mass/volume] in Serum or Plasma BG RANDOM 87 mg/dL Glucose [Ma ss/volume] in Blood ALK PHOS 78 U/L Alkaline torrey sphatase [Enzymatic activity/volume] in Blood ALBUMIN 4.6 g/dL Albumin [Mass /volume] in Serum or Plasma Office Visit: Office Visit R lev for visit : DEVRIES Previous MRI/CT? 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 Internal Other: Verbal Autho rization/Emergency Contact - OBS VERBAL_EMER DONE Verbal au thorization and emergency contact Internal Other: Authorizatio n - OBS [email or web address] Yes Authoriza tion: Release of Information - Authorize [facility] - Payment and Healthcare Operations ROIAUTHOTHER Yes Authoriz ation: Release of Information - Authorize Others/Insurance - Payment and Healthcare Operations HIECONSENT Yes Consent To Release information to the Health Information Exchange (HIE) [email or web address] Yes Authorizat ion: Authorization for [facility] to leave messages, voicemail, send text messages, send emails AUTHRELHCARE Yes Authoriz ation: Release/Retrieval of Information to/from Healthcare Facilities, Pharmacy Benefit Payers and Providers AUTHPRIVPRAC Yes Authoriz ation: Notice of privacy practices AUTHBENEFIT Yes Authoriza tion: Assignment of Benefits and Payment Agreement Plan of Care Type Date Detail Pending order Follow up BRITTNEY af ter testing in clinic or telemedicine Pending order Follow up [facility]ITT[facility] af ter testing in clinic or telemedicine Pending order MRI-Brain W/WO Pending order Patient to call for test results Pending order Patient to call for test results Pending order Magnesium Serum Pending order T4 Free Direct Pending order TSH Pending order Vitamin B2 (Ribo flavin) Pending order Thyroid Peroxida se (TPO) Ab Pending order Magnesium Serum Pending order T4 Free Direct Pending order TSH Pending order Vitamin B2 (Ribo flavin) Pending order Thyroid Peroxida se (TPO) Ab Procedures Code Procedure Name Date Entry Date [id number] MRI-Brain W/WO CPT-92548 MRI Brain W/WO CPT-A2869B ProHance Gadolinium- based MR Contrast - 15 ml vial CPT-O3236I ProHance Gadolinium- based MR Contrast - 15 ml vial [id number] Documentation of current medicatio ns Vital Signs Date Name Value Unit Description Weight Measured 135 [lb_av] weight E& M Height 62.99 [in_us] height E&M BMI (Body Mass Index) 24.27 kg/m2 Bod y Mass Index (Ratio) Body Temperature 36.11 [degF] temperat ure E&M BP Diastolic 72 mm[Hg] blood pressu re, diastolic BP Systolic 107 mm[Hg] blood pressur e, systolic Heart Rate 92 /min pulse rate Respiratory Rate 16 /min respirat ory rate E&M Weight Measured 62.143 kg weight in kilograms E&M Immunizations No information available. Advance Directives No information available.
--- NOTE | 2025-01-26 09:03 | ED.HA ---
HPI - Headache General Date Seen: 01/26/25 Chief Complaint: Headache/Migraine Stated Complaint: 6 weeks , fatigue, migraine Time Seen by Provider: 01/26/25 08:04 Source: patient Mode of arrival: ambulatory Limitations: no limitations History of Present Illness HPI Narrative: Patient is 29-year-old female presenting to the emergency department for a headache. She is 6 weeks in a A2. She states for the past couple days she has been having a mid frontal headache. She does states she has a history of migraines but this is more persistent than her typical migraines. Denies any history of clotting disorders. Has not had any fevers or chills. Denies any weakness or numbness. States symptoms are ongoing away. She has also has a history of hyperemesis gravidarum with her previous pregnancies and has been vomiting frequently during this . Has not seen her OB Gyne yet. Has not been taking anything for her nausea. Does admit she is probably very dehydrated as she has not been eating or drinking much recently due to her symptoms. Is feeling fatigued. Does admit to photophobia. and she is now having a sore throat. Is not having any shortness of breath or chest pain. No other concerns noted. Tylenol has not helped. Related Data Home Medications ?Medication ?Instructions ?Recorded ?Confirmed vitamin with calcium 1 tab PO DAILY 02/11/23 03/02/24 no.72-iron 27 mg-folic acid 1 mg tablet ( Vitamins Plus Low Iron) triamcinolone acetonide 0.1 % 1 applic topical BID 02/11/23 03/02/24 lotion Previous Rx's ?Medication ?Instructions ?Recorded acetaminophen 500 mg tablet 1,000 mg (2 x 500 mg) PO Q6H PRN 03/06/24 #30 tabs docusate sodium 100 mg capsule 100 mg PO DAILY #30 caps 03/06/24 ibuprofen 600 mg tablet 600 mg PO Q6H PRN #30 tabs 03/06/24 ondansetron 4 mg disintegrating 4 mg PO Q6H #20 tabs 01/26/25 tablet Allergies Allergy/AdvReac Type Severity Reaction Status Date / Time No Known Drug Allergies Allergy Verified 01/26/25 08:12 Review of Systems Status of ROS: Reports: 10 or more systems reviewed and unremarkable except as noted in History and below PFSH [facility] Medical History Gestational hypertension ?O13.9 - Gestational [-induced] hypertension without significant proteinuria, unspecified trimester (ICD-10) hemorrhage of vagina ?O72.1 - Other immediate hemorrhage (ICD-10) (normal spontaneous vaginal delivery) ?O80 - Encounter for full-term uncomplicated delivery (ICD-10) Social History What is your current living situation?: I presently have a place to live Problems where you live: no known problems In the past 12 months, utilities in danger of being shut off: no In past 12 months, lack of transportation kept you from medical appts, meetings, work, or getting things needed for daily living: no In the past 12 mos, have been you worried that your food would run out before you had money to buy more?: never true In the past 12 mos, the food you bought just didn't last and you didn't have money to buy more?: never true Smoking Status: Former smoker What tobacco products do you use: cigarettes Smoking quit date/years: <= 15 years ago Do you use any of these nicotine containing products: None Second hand tobacco smoke exposure: No How often do you have a drink containing alcohol: never How often do you have six or more drinks on one occasion: Never AUDIT-C Alcohol total score: 0 Non-prescribed substance use: denies use How often does anyone, including family, friends and others, physically hurt you: never How often does anyone, including family, friends and others, insult or talk down to you: never How often does anyone, including family, friends and others, threaten you with harm: never How often does anyone, including family, friends and others, scream or curse at you: never service: No Exam Narrative: Exam Narrative: Const: Well-nourished, Well-developed, in mild distress Eyes: PERRL, no conjunctival injection, and symmetrical lids HENT: Atraumatic external nose and ears. Moist mucous membranes. Uvula midline, no tonsillar exudate or swelling. Mildly erythematous posterior oropharynx Neck: Symmetric, trachea midline, No thyromegaly. CVS: RRR, No murmurs or gallops. Peripheral pulses 2+ and equal in all extremities RESP: Unlabored respiratory effort. Clear to auscultation bilaterally. GI: Nontender/Nondistended, No rebound or guarding. MSK:Extremities w/o deformity, Normal Active ROM Skin: Warm, Dry. No rashes or lesions. Neuro: Normal Muscle tone, No focal neurological deficits. Psych: Awake, Alert, & Oriented x3. Appropriate mood and affect. Const: Vital Signs, click to edit/add: Vital Signs - 24 hr 01/26/25 08:04 Temperature 99.5 F Pulse Rate [Right Pulse Oximeter] 84 Respiratory Rate 18 Blood Pressure [Ri ght Upper Arm] 113/69 Pulse Oximetry 97 Oxygen Delivery Me thod Room Air Course Vital Signs Vital signs: Initial Vital Signs Temperature 99.5 F 01/26/25 08:04 Temperature Source Temporal Artery Scan 01/26/25 08:04 Pulse Rate 84 01/26/25 08:04 Pulse Rhythm Regular 01/26/25 08:04 Pulse Strength 3+ Normal 01/26/25 08:04 Respiratory Rate 18 01/26/25 08:04 Blood Pressure 113/69 01/26/25 08:04 Blood Pressure Mean 83 01/26/25 08:04 Blood Pressure Position Sitting 01/26/25 08:04 Pulse Oximetry 97 01/26/25 08:04 Oxygen Delivery Method Room Air 01/26/25 08:04 Vital Signs Temperature 99.5 F 01/26/25 08:04 Pulse Rate 84 01/26/25 08:04 Respiratory Rate 18 01/26/25 08:04 Blood Pressure 113/69 01/26/25 08:04 Pulse Oximetry 97 01/26/25 08:04 Oxygen Delivery Method Room Air 01/26/25 08:04 Temperature 99.5 F 01/26/25 08:04 Pulse Rate 84 01/26/25 08:04 Respiratory Rate 18 01/26/25 08:04 Blood Pressure 113/69 01/26/25 08:04 Pulse Oximetry 97 01/26/25 08:04 Oxygen Delivery Method Room Air 01/26/25 08:04 Medications Administered Medications: Discontinued Medications Generic Name Dose Route Start Last Admin Trade Name Freq PRN Reason Stop Dose Admin Diphenhydramine HCl 25 mg 01/26/25 08:41 01/26/25 09:23 Diphenhydramine 50 Mg/Ml Inj IVP 01/26/25 08:42 25 mg ONCE ONE Administration Lactated Ringer's 1,000 mls @ 1,000 mls/hr 01/26/25 08:41 01/26/25 10:22 Lactated Ringers 1000 Ml IV 01/26/25 09:40 Infused .Q1H ONE Infusion Metoclopramide HCl 10 mg 01/26/25 08:41 01/26/25 09:23 Metoclopramide Hcl 5 Mg/Ml Inj IVP 01/26/25 08:42 10 mg ONCE ONE Administration MDM - Headache MDM Narrative Medical decision making narrative: Patient is a 29-year-old female is currently 6 weeks presenting to emergency department for vomiting, headache, sore throat. Patient is not showing signs of peritonsillar abscess, Filiberto angina, retropharyngeal abscess,Lemierre disease or any other concerning oral pharynx or deep neck space abscesses. Imaging is not necessary. Will order a COVID/flu/RSV test along with a strep swab. Her headache seems likely related to her dehydration. Low concern for any intracranial issues at this time. Will treat her with a migraine cocktail. This should also help with her vomiting which is likely from hyperemesis gravidarum. She is feeling much better after the medications. She feels comfortable for discharge. Viral swabs are negative. Strep swab is negative. She will be discharged with Zofran. She is agreeable to this plan. Lab Data Labs: Lab Results 01/26/25 01/26/25 Range/Units 08:14 09:47 SARS-CoV-2 (PCR) Negative SARS-CoV-2 (Negative) Influenza Type A (PCR) Negative PCR FLU A (Negative) Influenza Type B (PCR) Negative PCR FLU B (Negative) RSV (PCR) Negative PCR RSV (Negative) Group A Strep DNA NOT DETECTED (Not Detectd) Discharge Plan Discharge Clinical Impression: Headache in Qualifiers: Trimester: first trimester Qualified Code(s): O26.891 - Other specified related conditions, first trimester Patient Disposition: Home, Self-Care Condition: Stable Additional Instructions: Take Tylenol ibuprofen for headache. Use Zofran as needed for nausea. Return for new or worsening symptoms. Prescriptions: New ondansetron 4 mg tablet,disintegrating 4 mg PO Q6H Qty: 20 0RF No Action triamcinolone acetonide 0.1 % lotion 1 applic TOPICAL BID Vitamin Plus Low Iron 27 mg iron- 1 mg tablet 1 tab PO DAILY acetaminophen 500 mg Tablet 1,000 mg PO Q6H PRNQty: 30 0RF docusate sodium 100 mg Capsule 100 mg PO DAILY Qty: 30 0RF ibuprofen 600 mg Tablet 600 mg PO Q6H PRNQty: 30 0RF Follow Up/Referrals: Joanna Carter MD [Primary Care Provider] - Stand Alone Forms: [facility] Info Instructions
[2025-01-26 09:12] LABS: PCR FLU A Negative PCR FLU A (Negative); PCR FLU B Negative PCR FLU B (Negative); PCR RSV Negative PCR RSV (Negative); SARS PCR* Negative SARS-CoV-2 (Negative)
[2025-01-26] MEDS: diphenhydrAMINE 50 MG/ML inj 25 MG IVP (09:23)
[2025-01-26] MEDS: METOCLOPRAMIDE HCL 5 MG/ML INJ 10 MG IVP (09:23)
[2025-01-26] MEDS: LACTATED RINGERS 1000 ML 1,000 ML IV (09:23)
[2025-01-26 10:20] LABS: Strep A DNA Probe* NOT DETECTED (Not Detectd)
== END 2025-01-26 10:54 | disposition home or self-care (01) ==
PROVIDERS: Emergency Provider Student in an Organized Health Care Education/Training Program; PCP Family Medicine
DX: R51.9 Headache, unspecified (principal); Z3A.01 Less than 8 weeks gestation of pregnancy
CPT/HCPCS: 87631; 87651; 96374; 96375; 99283; 99284; J1200; J2765; J7120

== ENCOUNTER 2025-06-08 16:06 | Emergency (ER) | payer MEDICAID, SELFPAY ==
--- OUTSIDE RECORDS SUMMARY | 2025-06-08 16:09 | XMS_ITS | Clinical Summary ---
Author Organization [facility] Address [address] [facility] , [address] [place] [address] Phone Care Team Providers Care Munitions Handler Name Role Phone MedRec, MedRec Unavailable Conditions or Problems Problem Name Problem Code Onset Date Status Entry Date Provider Comment Standard Description Annotate Exophthalmos , bilateral 31770599 (SNOMED CT) Active Vipul Bagley MD Exophthalmos Tension headache 660467446 (SNOMED CT) Active Vipul Bagley MD Tension-type headache Medications Medication Instructions Start Date Stop Date Generic Name NDC Provider PROPRANOLOL HCL ER 60 MG [id number] Take 1 capsule by mouth at bedtime 1 propranolol [id number] Antonio Guerra PA-C OMEPRAZOLE 20 MG [facility] omeprazole [id number] Vipul Bagley MD DULOXETINE HCL 60 MG CPEP duloxetine [id number] Vipul Bagley MD DULOXETINE HCL 30 MG CPEP duloxetine [id number] Vipul Bagley MD ONDANSETRON HCL 4 MG TABS ondansetron hcl [id number] Vipul Bagley MD Medications Administered No information [...] medications (procedure) SMOK STATUS 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 Advance Directives No information available."
--- OUTSIDE RECORDS SUMMARY | 2025-06-08 16:10 | XMS_ITS | Clinical Summary ---
Author Organization [facility] Address [address] [place] [address] Phone Care Team Providers Care Batch Records Clerk Name Role Phone Joanna Carter MD Primary Care Provider [phone] Allergies No known active allergies Medications triamcinolone (KENALOG) 0.1 % lotion Apply 1 application topically 2 (two) times a day 1 Active ibuprofen (ADVIL,MOTRIN) 200 MG tablet Take 1 tablet by mouth every 6 (six) hours if needed Active acetaminophen (TYLENOL) 325 MG tablet Take 1 tablet by mouth every 4 (four) hours if needed Active polyethylene glycol (GLYCOLAX) 17 GM/SCOOP powder 4 Active SUMAtriptan (IMITREX) 25 MG tablet Take 25 mg by mouth 4 Active norethindrone (MICRONOR) 0.35 MG tablet 4 Active Active Problems Problem Noted Date Diagnosed Date Anxiety depression 03/12/2022 Proteinuria 03/12/2022 Assessment & Plan (10/20/2024 4:26 PM BIT SETTER): Improved/stable. Currently no evidence of GFR compromise nor proteinuria. My suspicion is that patient experienced proteinuria as a result of as well as preeclampsia related physiology during her pregnancies, in 2021 and earlier this year in 2023. Taking everything together, she is certainly at higher than average risk for preeclampsia with a third but at this point in time, I am not leaning towards recommending kidney biopsy at this point in time. On the other hand, I do feel that ongoing surveillance is still necessary and would recommend annual basic metabolic panel along with urinalysis and urine protein creatinine ratio and if ever proteinuria returns, proceed towards kidney biopsy immediately. For the time being, we will plan to see Gini again in 1 year. Assessment & Plan (08/03/2024 4:46 PM CDT): Unclear etiology. No evidence of kidney failure or diminished GFR by blood work. No blood and urinalysis. No evidence of other nephrotoxic exposure. That said, we will plan to hold off on more invasive testing at this time. No plans to repeat serologies currently. We will repeat urine studies as well as a basic metabolic panel and 3 months and if proteinuria still present, proceed immediately towards kidney biopsy. Patient is in agreement with this plan. She was advised to call with any questions or concerns in the interim. Vitamin D deficiency 03/12/2022 Gastroesophageal reflux disease 03/12/2022 Immunizations Immunization Administration Dates Next Due DTP / HiB 12/17/1996, 6,1995,10/07 DTaP 12/25/2006, 0,12/17/1996,02/11,1995,1995 Hep A, 2 Dose 02/06/2005,08/09/2004 Hep A, Unspecified 02/06/2005,08/09/2004 Hep B, Adolescent or Pediatric 04/08/1996,1995,1995 Hep B, Unspecified 04/08/1996,1995, 995 IPV 08/13/2000, 6,1995,10/07 Influenza, Quadrivalent, Pre servative Free 08/11/2019 Influenza, Unspecified 08/16/2015,09/08/2014 MMR 09/27/2019,08/13/2000,12/17/1996 Meningococcal MCV4P 03/18/2007 OPV 02/12/1996,1995,1995 Tdap 01/03/2024, 9,12/24/2006,08/13,12/17/1996,02/12/1996,1995 ,1995 Varicella 07/15/2008,03/18/2007,12/17/1996 Family History Medical History Relation Comments Lupus Mother Kidney disease Sister Relation Status Comments Mother Sister Social History Tobacco Use Types Packs/Day Years Used Date Smoking Tobacco: Former Cigarettes Q uit: 2018 Smokeless Tobacco: Never Tobacco Cessation:Counseling Given: Not Answered Alcohol Use Standard Drinks/Week Comments Never 0 (1 standard drink = 0.6 oz pur e alcohol) Comments Unknown Sex and Gender Information Value Date Recorded Sex Assigned at Not on file Legal Sex Female 2:07 PM EDT Gender Identity Not on file Sexual Orientation Not on file Last Filed Vital Signs Vital Sign Reading Time Taken Comments Blood Pressure 122/92 10/20/2024 3:58 PM BIT SETTER Pulse 76 10/20/2024 3:58 PM BIT SETTER Temperature - - Respiratory Rate - - Oxygen Saturation 99% 10/20/2024 3:58 PM BIT SETTER Inhaled Oxygen Concentration - - Weight 67.6 kg (149 lb) 10/20/2024 3:58 PM BIT SETTER Height 160 cm (5' 3) 10/20/2024 3:58 PM BIT SETTER Body Mass Index 26.39 10/20/2024 3:58 PM BIT SETTER Plan of Treatment Health Maintenance Due Date Last Done Comments Pneumococcal Vaccine: Peds ( 0 to 5 Years) and At-Risk Patients (6 to 49 Years) (1 of 2 - PCV) 2014 Influenza Vaccine (#1) 2025 9, 08/16/2015, 09/08/2014 Hepatitis B Vaccine Completed 04/08/1996, 04/08/1996, 1995, Additional history exists Insurance [address] [facility] [place] [address] [facility] ([id number]) Care Teams Batch Records Clerk Relationship Specialty Start Date End Date Joanna Carter MD [address] [place] [address] PCP - General Family Medicine 03/01/22
--- OUTSIDE RECORDS SUMMARY | 2025-06-08 16:10 | XMS_ITS | Encounter Summary ---
Author Organization [facility] Address [address] [place] [address] Care Team Providers Care Forging Operator Name Role Phone Joanna Carter MD Primary Care Provider [phone] Encounter Details Date Type Department Care Team (Late st Contact Info) Description 10/13/2024 Orders Only [facility] [address] [place] [address] Ron Bradshaw MD [address] [place] [address] Isolated proteinuria Social History Tobacco Use Types Packs/Day Years Used Date Smoking Tobacco: Former Cigarettes Q uit: 2018 Smokeless Tobacco: Never Alcohol Use Standard Drinks/Week Comments Never 0 (1 standard drink = 0.6 oz pur e alcohol) Comments Unknown Sex and Gender Information Value Date Recorded Sex Assigned at Not on file Legal Sex Female 2:07 PM EDT Gender Identity Not on file Sexual Orientation Not on file documented as of this encounter Plan of Treatment Not on file documented as of this encounter Procedures Procedure Name Priority Date/Time Associated Diagnosis Comments URINALYSIS WITH MICROSCOPIC Routine 10/14/2024 2:00 PM SENIOR SAS PROGRAMMER Isolated proteinuria PROTEIN ELECTROPHORESIS, SERUM Routine 10/14/2024 2:00 PM SENIOR SAS PROGRAMMER Isolated proteinuria BASIC METABOLIC PANEL Routine 10/14/2024 2:00 PM SENIOR SAS PROGRAMMER Isolated proteinuria documented in this encounter Results * Total Protein and Protein Electrophoresis, Serum (10/14/2024 2:00 PM SENIOR SAS PROGRAMMER) Total Protein 7.4 6.1 - 8.1 g/dL See order comments Albumin 4.2 3.8 - 4.8 g/dL See order comments Fdaht-5-Fyglksfh 0.3 0.2 - 0.3 g/dL See order comments Vslts-4-Kfumdvgu 0.8 0.5 - 0.9 g/dL See order comments Beta-1 0.4 0.4 - 0.6 g/dL See order comments Beta-2 0.4 0.2 - 0.5 g/dL See order comments Gamma Globulin % 1.4 0.8 - 1.7 g/dL See order comments Interpretation See o rder comments Comment:No restricted band ( M-spike) seen. Blood specimen (specimen) Venous blood / Unknown 10/14/2024 2:00 PM SENIOR SAS PROGRAMMER 10/14/2024 2:01 PM SENIOR SAS PROGRAMMER Narrative Resulting Agency Comment Performing Organization Information: Site ID: [place] Name: [email or web address] Address: [address] [address] Director: Phuong Clemente MD us Ron Bradshaw MD LAB BLOOD ORDERABLES [facility] See order comments [place] [address] * Urinalysis with microscopic (10/14/2024 2:00 PM SENIOR SAS PROGRAMMER) Color, Urine YELLOW YELLOW See ord er comments Appearance Urine CLEAR CLEAR See order comments Specific Williamson, UA 1.020 1.001 - 1.035 See order comments pH Urine 6.0 5.0 - 8.0 See order comments Glucose, Ur NEGATIVE NEGATIVE See orde r comments Bilirubin, Urine NEGATIVE NEGATIVE See order comments Ketones, Urine NEGATIVE NEGATIVE See o rder comments Hemoglobin Ur Ql Strip NEGATIVE NEGATIVE See order comments Protein, Ur NEGATIVE NEGATIVE See orde r comments Nitrite, Urine NEGATIVE NEGATIVE See o rder comments WBC Esterase Urine NEGATIVE NEGATIVE See order comments WBC, Urine 0-5 < OR = 5 /HPF See order comments RBC, Urine NONE SEEN < OR = 2 /HPF See order comments Epithelial Cells in Urine NONE SEEN < OR = 5 /HPF See order comments Bacteria NONE SEEN NONE SEEN /HPF See order comments Hyaline Casts, Urine NONE SEEN NONE SEEN /LPF See order comments Note: See order comments Comment: This urine was analyzed for the presence of WBC, RBC, bacteria, casts, and other formed elements. Only those elements seen were reported. Urine specimen (specimen) Urine specimen obtained by clean catch procedure / Unknown 10/14/2024 2:00 PM SENIOR SAS PROGRAMMER 10/14/2024 2:01 PM SENIOR SAS PROGRAMMER Narrative Resulting Agency Comment Performing Organization Information: Site ID: [place] Name: [facility] Address: [address] [place] [phone] Director: Dejuan Mckinney Ron Bradshaw MD LAB URINE ORDERABLES Final Resul t [facility] See order comments [place] [address] * Basic metabolic panel (10/14/2024 2:00 PM SENIOR SAS PROGRAMMER) Glucose 76 65 - 99 mg/dL See order comments Comment: Fasting reference interval BUN 7 7 - 25 mg/dL See order comments Creatinine 0.77 0.50 - 0.96 mg/dL See order comments eGFR CKD-EPI CR 2020 107 > OR = 60 mL/min/1. 73m2 See order comments BUN/Creatinine Ratio SEE NOTE: 6 - 22 (calc) See order comments Comment: Not Reported: BUN and Creatinine are within reference range. Sodium 141 135 - 146 mmol/L See order comments Potassium 4.1 3.5 - 5.3 mmol/L See order comments Chloride 107 98 - 110 mmol/L See order comments Bicarbonate (CO2) 28 20 - 32 mmol/L See order comments Calcium 9.6 8.6 - 10.2 mg/dL See order comments Blood specimen (specimen) Venous blood / Unknown 10/14/2024 2:00 PM SENIOR SAS PROGRAMMER 10/14/2024 2:01 PM SENIOR SAS PROGRAMMER Narrative Resulting Agency Comment Performing Organization Information: Site ID: [place] Name: [email or web address] Address: [address] [address] Director: Phuong Clemente MD us Ron Bradshaw MD LAB BLOOD ORDERABLES Final Resul t [facility] See order comments [place] [address] documented in this encounter Visit Diagnoses Diagnosis Isolated proteinuria documented in this encounter Care Teams Forging Operator Relationship Specialty Start Date End Date Joanna Carter MD [address] [place] [address] PCP - General Family Medicine 03/01/22 documented as of this encounter
--- OUTSIDE RECORDS SUMMARY | 2025-06-08 16:10 | XMS_ITS | Clinical Summary ---
Author Organization [facility] Address [address] [place] [address] Care Team Providers Care Voice Intercept Technician Name Role Phone Elsewhere, Pcp Primary Care Provider Unavailabl e Source Comments Patient records contain information from all sites at [facility]. For routine questions regarding patient records, call [phone] during business hours, M-F 8:00 AM - 5:00 PM Central Time. Record requests for emergency care only can be directed to [phone] at any time.[facility] Allergies No known active allergies Medications acetaminophen (for_TYLENOL) 325 mg tablet Take 325 mg by mouth every 4 (four) hours as needed for pain. Active mxdavxl-Hn-yqnk -FA (VINATE ONE) 60 mg iron-1 mg per tablet Take 1 tablet by mouth. 02/02/2019 Active ondansetron (ZOFRAN) 4 mg tablet Take 4 mg by mouth. 03/24/2019 Active SUMAtriptan (IMITREX) 25 mg tablet TAKE 1 TABLET BY MOUTH EVERY 2 HOURS NEEDED FOR MIGRAINE GIVE AT MINIMUM 2HR APART MAX DOSE 200MG PER 24 HOURS 10/30/2022 Active triamcinolone (KENALOG) 0.5 % cream APPLY TO AFFECTED AREA(S) TWO TIMES A DAY USE FOR FLARE THEN RETURN TO 0.1% TOPICAL CREAM 11/01/2022 Active triamcinolone (KENALOG) 0.1 % lotion Apply topically. 06/21/2021 Active DULoxetine (CYMBALTA) [address] capsule Take 30 mg by mouth daily. 11/01/2022 Active DULoxetine (CYMBALTA) [address] capsule Take 60 mg by mouth daily. 11/01/2022 Active Active Problems Problem Noted Date Diagnosed Date Encounter For Supervision Of Normal Unspecified Trimester 03/11/2019 Overview (03/17/2019): Overview: Estimated Date of Delivery: 09/30/19 Patient's last menstrual period was 12/20/2018. Last Tdap- 12/24/2006 Last Flu vaccine- 08/16/2015 Glucose (GTT) result- too early No Known Allergies OB History Para Term AB Living 2 0 0 0 1 0 SAB TAB Ectopic Multiple Live Births 1 0 0 0 0 # Outcome Date GA Lbr Thompson/2nd Weight Sex Delivery Anes PTL Lv 2 Current 1 SAB Create lab flowsheet for OB labs- Component Latest Ref Rng & Units 02/20/2019 02/20/2019 02/20/2019 11:03 AM 11:03 AM 11:03 AM ANTIBODY SCREEN Negative Negative SPECIMEN EXPIRATION DATE/TIME 02/23/19 23:59 HEMOGLOBIN 12.0 - 16.0 g/dL 13.3 MCV 80 - 100 fL 88 RUBELLA IGG ANTIBODY Negative 0.58 (L) HEMOGLOBIN A1C SCREENING <=6.4 % 5.2 ABORH O Rh Positive HBSAG Nonreactive Nonreactive HEPATITIS C ANTIBODY Non-Reactive Non-Reactive HIV-1/HIV-2 ANTIBODY Non-Reactive Non-Reactive TREPONEMA PALLIDUM Negative Negative Past Medical History: Diagnosis Date Diarrhea Smoking UTI (urinary tract infection) Past Surgical History: Procedure Laterality Date NO PREVIOUS SURGERY No data on file. Problems (from 02/20/19 to present) No problems associated with this episode. MICHELLE Rojas.....03/11/2019 10:09 AM Pharyngitis Chronic Recurrent 12/23/2018 Overview (12/23/2018): Suspect element of chronic fatigue syndrome contributing to symptoms in addition to depression anxiety Would recommend Rapid strep testing for acute symptoms but avoid antibiotic therapy or other similar treatments unless rapid strep positive Patient would benefit from tonsillectomy, currently in the process establishing health insurance to help make this possible Depression Major 10/17/2016 Overview (04/09/2017): Depression Major NOS Intolerance Lactose 02/23/2016 Anxiety Generalized Disorder 04/21/2015 Deficiency Vitamin D 03/23/2015 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 Headache Unspecified (Primary Dx) Discharge Disposition: Home or Self Care 04/02/2025 Nurse Triage Department of Family Medicine, [facility], in [place], [place] [address] [place] [phone] Tamiko Conrad, RJoseN. Urinary Problem from Last 3 Months Immunizations Immunization Administration Dates Next Due 9vHPV 09/27/2021,04/19/2021,03/10/2021 DTP / Hib 12/17/1996, 6,1995,1994 DTaP (Infanrix, Tripedia) 12/25/2006,12/24/2006 DTaP, Unspecified 08/13/2000, 7,02/12/1996,1995,1995 HepA, Unspecified 02/06/2005,08/09/2004 HepB, Unspecified 04/08/1996,1995,10/07/19 95 IPV 08/13/2000, 6,1995,1994 Influenza, Unspecified 08/16/2015,09/08/2014 MCV4 (Menactra)(Discontinued) 03/18/2007 MCV4 (Menveo) 06/09/2012 MMR 09/27/2019,08/13/2000,12/17/1996 OPV 02/12/1996,1995,1995 Tdap 07/14/2019, 7,08/13/2000,1996,02/12/1996,1995,1995 ERI 07/15/2008,03/18/2007,12/17/1996 influenza vaccine quad (FLUZONE/FLUARIX) (6 months and older)(PF) 09/04/2022,08/11/2019 Family History Medical History Relation Name Comments Diabetes Aunt Maternal Disorder of thyroid gland Aunt Maternal ADD Brother Anxiety disorder Brother Depression Brother Rheum arthritis Brother Seizures Brother Suicide Attempts Brother Heart attack Grandfather Maternal Lupus Mother Anxiety disorder Sister Depression Sister Overweight Sister Suicide Attempts Sister Relation Name Status Comments Aunt Maternal Brother Grandfather Maternal Mother Sister Social History Tobacco Use Types Packs/Day Years Used Date Smoking Tobacco: Some Days Cigarettes 0.3 1 Started: 03/31/2017; Last attempted to quit: 03/31/2018 Smokeless Tobacco: Never Tobacco Cessation:Ready to Q uit: Not Asked; Counseling Given: Not Answered Comments:Former Smoker - occasional use Alcohol Use Standard Drinks/Week Comments Yes 0 (1 standard drink = 0.6 oz pur e alcohol) occasional Comments Yes Sex and Gender Information Value Date Recorded Sex Assigned at Female 02/21/2018 11:02 AM CDT Legal Sex Female 4:04 AM 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 HAY STACKER Gender Identity Female 02/21/2018 11:02 AM CDT Sexual Orientation Straight 02/21/2018 11 :02 AM CDT Last Filed Vital Signs Vital Sign Reading Time Taken Comments Blood Pressure 111/71 04/03/2025 7:00 PM CDT Pulse 72 04/03/2025 7:00 PM CDT Temperature 36.3 C (97.3 F) 04/03/2025 4:41 PM CDT Respiratory Rate 17 04/03/2025 7:00 PM CDT Oxygen Saturation 98% 04/03/2025 7:00 PM CDT Inhaled Oxygen Concentration - - Weight 68.5 kg (151 lb 0.2 oz) 04/13/2024 7:31 P M CDT Height 164 cm (5' 4.57) 03/17/2019 11:32 AM CDT Body Mass Index 25.47 03/17/2019 11:32 AM CDT Plan of Treatment Health Maintenance Due Date Last Done Comments Colposcopy after positive HP V 16 or 18 1995 Depression Monitoring (PHQ-9) 1995 Tobacco Cessation counseling 1995 Pneumococcal vaccine (0-49 y ears) (1 of 2 - PCV) 2014 Cervical/Vaginal Cancer Surveillance (Annual) 09/27/2022 09/27/2021 COVID-19 Vaccine (1 - 2023-2 5 season) 2024 Depression Monitoring (PHQ-9 for quality tracking) 11/18/2024 Influenza Vaccine (#1) 2025 , 08/11/2019, 08/16/2015, Additional history exists DTaP,Tdap,and Td Vaccines (1 1 - Td or Tdap) 01/03/2034 01/03/2024, 07/14/2019, 12/25/2006, Additional history exists RSV vaccine - (32-3 6 weeks) or 60+ years (1 - 1-dose 75+ series) 2070 Hepatitis B Vaccines Completed 04/08/1996, 1995, 1995 IPV Vaccines Completed 08/13/2000, 01/17, 02/12/1996, Additional history exists Varicella Vaccines Completed 07/15/2008, 0 03/18/2007, 12/17/1996 Chlamydia and Gonorrhea Screening Discontinued 014 HIV Screening Completed 08/05/2017, 06/18, 09/29/2014 HPV Vaccines Completed 09/27/2021, 06/0 12/2020, 03/10/2021 Cervical/Vaginal Cancer Screening Discontinued 09/04/2022, 09/27/2021, 09/27/2021, Additional history exists Hepatitis B Screening Discontinued 02/17/2025 , 07/31/2023, 02/20/2019 Procedures Procedure Name Priority Date/Time Associated Diagnosis Comments MAGNESIUM, S STAT 04/03/2025 5:37 PM CDT TROPONIN T, BASELINE, 5TH GEN, P STAT 04/03/2025 5:37 PM CDT PROTHROMBIN TIME (PT), P STAT 04/03/2025 5:37 PM CDT LIPASE, S/P STAT 04/03/2025 5:37 PM CDT COMPREHENSIVE METABOLIC PANEL, S/P STAT 04/03/2025 5:37 PM CDT CBC WITH DIFFERENTIAL, B STAT 04/03/2025 5:37 PM CDT URINALYSIS WITH MICROSCOPIC IF INDICATED, U STAT 04/03/2025 5:28 PM CDT BACTERIAL CULTURE, AEROBIC + SUSC, URINE STAT 04/03/2025 5:28 PM CDT ECG STAT 04/03/2025 4:53 PM CDT EXT THINPREP W/HPV CO-TEST SCREEN Routine 09/27/2021 3:30 PM 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 HAY STACKER HIV-1/-2 AG AND AB SCREEN Routine 08/05/2017 6:08 PM CDT C TRACH AMP RNA Routine 09/29/2014 2:20 PM 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 HAY STACKER from Last 3 Months or Most Recently Relevant to Health Maintenance Results * Troponin T, Baseline with 2 Hour/6 Hour Reflex Biomarker Panel (04/03/2025 5:37 PM CDT) Troponin T, Baseline, 5th gen <6 <=10 ng/L 04/03/2025 6:02 PM CDT [facility] Blood (Blood, Venous) 04/03/2025 5:37 PM CDT 04/03/2025 5:41 PM CDT us Fernando Tim P.A.-C. LAB BLOOD TROPONIN Final Re sult [facility] [address] [place] [address], [place] [facility] [place] [facility] [address] [place] [address] * Prothrombin Time (PT) (04/03/2025 5:37 PM CDT) Prothrombin Time, P 10.4 9.4 - 12.5 sec 04/03/2025 5:49 PM CDT [facility] INR 0.9 0.9 - 1.1 04/03/2025 5:49 PM CDT [facility] Comment: ----ADDITIONAL INFORMATION---- Standard intensity warfarin therapeutic range: 2.0 to 3.0 High intensity warfarin therapeutic range: 2.5 to 3.5 Blood (Blood, Venous) 04/03/2025 5:37 PM CDT 04/03/2025 5:41 PM CDT us Fernando Tim P.A.-C. LAB BLOOD ADD-ON Final Resu lt [facility] [address] [place] [address], [facility] [place] [facility] [address] [place] [address] * (ABNORMAL) CBC with Differential, Blood (04/03/2025 5:37 PM CDT) Hemoglobin 12.4 11.6 - 15.0 g/dL 04/03/2025 5:47 PM CDT [facility] Hematocrit 37.3 35.5 - 44.9 % 04/03/2025 5:47 PM CDT [facility] Erythrocytes 4.45 3.92 - 5.13 x10(12)/L 04/03/2025 5:47 PM CDT [facility] MCV 83.8 78.2 - 97.9 fL 04/03/2025 5:47 PM CDT [facility] RBC Distrib Width 13.9 12.2 - 16.1 % 04/03/2025 5:47 PM CDT [facility] Platelet Count 230 157 - 371 x10(9)/L 04/03/2025 5:47 PM CDT [facility] Leukocytes 10.7(H) 3.4 - 9.6 x10(9)/L 04/03/2025 5:47 PM CDT [facility] Neutrophils 8.32(H) 1.56 - 6.45 x10(9)/L 04/03/2025 5:47 PM CDT [facility] Lymphocytes 1.86 0.95 - 3.07 x10(9)/L 04/03/2025 5:47 PM CDT [facility] Monocytes 0.44 0.26 - 0.81 x10(9)/L 04/03/2025 5:47 PM CDT [facility] Eosinophils 0.06 0.03 - 0.48 x10(9)/L 04/03/2025 5:47 PM CDT [facility] Basophils <0.03 0.01 - 0.08 x10(9)/L 04/03/2025 5:47 PM CDT [facility] Blood (Blood, Venous) 04/03/2025 5:37 PM CDT 04/03/2025 5:41 PM CDT Fernando Waller-CJose LAB BLOOD ADD-ON Final Resu lt [facility] [address] [place] [address], [facility] [place] [address] * Magnesium (04/03/2025 5:37 PM CDT) Magnesium, P 1.9 1.7 - 2.3 mg/dL 04/03/2025 6:04 PM CDT [facility] Blood (Blood, Venous) 04/03/2025 5:37 PM CDT 04/03/2025 5:41 PM CDT Fernando Waller-CJose LAB BLOOD ADD-ON Final Resu lt [facility] [address] [place] [address], [facility] [place] [address] * Lipase (04/03/2025 5:37 PM CDT) Lipase, P 40 13 - 60 U/L 04/03/2025 6: 04 PM CDT [facility] Blood (Blood, Venous) 04/03/2025 5:37 PM CDT 04/03/2025 5:41 PM CDT Fernando ReynosoC. LAB BLOOD ADD-ON Final Resu lt [facility] [address] [place] [address], [facility] [facility] [address] [place] [address] * (ABNORMAL) Comprehensive Metabolic Panel (04/03/2025 5:37 PM CDT) Potassium, P 3.5(L) 3.6 - 5.2 mmol/L 04/03/2025 6:04 PM CDT [facility] Sodium, P 137 135 - 145 mmol/L 04/03/2025 6:04 PM CDT [facility] Chloride, P 105 98 - 107 mmol/L 04/03/2025 6:04 PM CDT [facility] Bicarbonate, P 20(L) 22 - 29 mmol/L 04/03/2025 6:04 PM CDT [facility] Anion Gap, P 12 7 - 15 04/03/2025 6:04 PM CDT [facility] BUN (Blood Urea Nitrogen), P 11 6 - 21 mg/dL 04/03/2025 6:04 PM CDT [facility] Creatinine 0.51(L) 0.59 - 1.04 mg/dL 04/03/2025 6:04 PM CDT [facility] Estimated GFR (eGFR) >90 >=60 mL/min/BS A 04/03/2025 6:04 PM CDT [facility] Comment: Estimated GFR calculated using the 2020 CKD_EPI creatinine equation. Calcium, Total, P 9.0 8.6 - 10.0 mg/dL 04/03/2025 6:04 PM CDT [facility] Glucose, P 122 70 - 140 mg/dL 04/03/2025 6:04 PM CDT [facility] Protein, Total, P 7.1 6.3 - 7.9 g/dL 04/03/2025 6:04 PM CDT [facility] Albumin, P 3.7 3.5 - 5.0 g/dL 04/03/2025 6:04 PM CDT [facility] Aspartate Aminotransferase (AST), P 15 8 - 43 U/L 04/03/2025 6:04 PM CDT [facility] Alkaline Phosphatase, P 66 35 - 104 U/L 04/03/2025 6:04 PM CDT [facility] Alanine Aminotransferase (ALT), P 8 7 - 45 U/L 04/03/2025 6:04 PM CDT [facility] Bilirubin, Total, P <0.2 0.0 - 1.2 mg/dL 04/03/2025 6:04 PM CDT [facility] Blood (Blood, Venous) 04/03/2025 5:37 PM CDT 04/03/2025 5:41 PM CDT us Fernando Tim P.A.-C. LAB BLOOD ADD-ON Final Resu lt [facility] [address] [place] [address], [facility] [place] [facility] [address] [place] [address] * (ABNORMAL) Urinalysis with Microscopic if Indicated: Urine, Midstream (04/03/2025 5:28 PM CDT) Source Urine, Urine, Midstream 04/03/2025 5:35 PM CDT [facility] Clarity Clear Clear 04/03/2025 5:35 PM CDT [facility] Color Yellow 04/03/2025 5:35 PM CDT [facility] Comment: ----REFERENCE VALUE---- Colorless Yellow [place] Blood Negative Negative 04/03/2025 5:35 PM CDT [facility] Nitrite Negative Negative 04/03/2025 5:35 PM CDT [facility] Leukocyte Esterase Negative Negative 04/03/2025 5:35 PM CDT [facility] Protein Negative mg/dL 04/03/2025 5:35 PM CDT [facility] Comment: ----REFERENCE VALUE---- Negative Trace Glucose Negative Negative mg/dL 04/03/2025 5:35 PM CDT [facility] Ketone 80(A) Negative mg/dL 04/03/2025 5:35 PM CDT [facility] Bilirubin Negative Negative 04/03/2025 5:35 PM CDT [facility] pH 6.0 5.0 - 8.0 04/03/2025 5:35 PM CDT [facility] Specific [place] 1.027 1.001 - 1.035 04/03/2025 5:35 PM CDT [facility] Urobilinogen 1.0 0.2 - 1.0 mg/dL 04/03/2025 5:35 PM CDT [facility] Urine (Urine, Midstream) 04/03/2025 5:28 PM CDT 04/03/2025 5:30 PM CDT Fernando Tim P.A.-C. LAB URINE ORDERABLES Final Result Performing Organization Address [facility]/ZIP Co de Phone Number [facility] [address] [place] [address], [facility] [address] [place] [address] * Bacterial Culture, Aerobic + Susceptibility, Urine (04/03/2025 5:28 PM CDT) Pathologist [facility] Urine Culture Urogenital microbiota, susceptibilities not performed per laboratory criteria. 04/05/2025 5:56 AM CDT [facility] Urine (Urine, Midstream) 04/03/2025 5:28 PM CDT 04/03/2025 9:52 PM CDT Comment:Specimen Source Site : Urine Fernando Tim P.A.-C. LAB MICROBIOLOGY - GENERAL ORDERABLES Final Result Performing Organization Address [facility] Co de Phone Number [facility] [address] [place] [address], [facility] in [place] [address] [place] [id number] * ECG 12 Lead (04/03/2025 4:53 PM CDT) Ventricular Rate ECG/Min 82 BPM MUSE MA Interval 136 ms MUSE QRSD Interval 86 ms MUSE QT Interval 380 ms MUSE QTC Interval 443 ms MUSE P [place] 62 degrees MUSE R [place] 68 degrees MUSE T Wave [place] 51 degrees MUSE 04/03/2025 4:53 PM CDT 04/03/2025 4:56 PM CDT Impressions MUSE - 04/03/2025 4:56 PM CDT Normal sinus rhythm Nonspecific ST and T wave abnormality No previous ECGs available Reviewed by CRISTEL Felton Narrative Procedure Note Pedro Pavon M.D. - 04/03/2025 IMPRESSION: Normal sinus rhythm Nonspecific ST and T wave abnormality No previous ECGs available Reviewed by CRISTEL Felton Fernando Tim P.A.-C. ECG ORDERABLES Final Resul t Performing Organization Address City/[facility]/ZIP Co de Phone Number MUSE NA * (ABNORMAL) EXT ThinPrep w/HPV Co-Test Screen (09/27/2021 3:30 PM 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 HAY STACKER) EXT ThinPrep w/HPV Co-Test Screen Abnormal - See Scanned Report for Details(A) Normal - See Scanned Report for Details, HIMS - Report Received and Scanned Comment:See Care Everywhere for results: Abnormal pap, normal HPV Thin Prep Vial (Cervix/Endocervi x) 09/27/2021 3:30 PM 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 HAY STACKER Historical Provider LAB PAP PATHDX ORDERABLES Fi nal Result * HIV-1/-2 Ag and Ab Screen (08/05/2017 6:08 PM CDT) HIV-1/-2 Ag and Ab Screen, S Non-React migdalia Non-React migdalia POWERCHART Comment: Result is not diagnostic (considered preliminary), and diagnosis of HIV infection must be based on supplemental test results. Supplemental HIV antibody differentiation testing will be added by the initial testing laboratory. The performance of this assay has not been established for neonates, and the assay should not be used in individuals younger than 2 years of age. Hx HIV 1 Ab Non-React migdalia Non-React migdalia POWERCHART HX HIV 1 Ag Non-React migdalia Non-React migdalia POWERCHART HX HIV 2 Ab Non-React migdalia Non-React migdalia POWERCHART Blood 08/05/2017 6:08 PM CDT Clay Rizvi P.A.-C. LAB MICROBIOLOGY - BLOOD ORDERABLES Final Result Performing Organization Address City/[facility] Co de Phone Number POWERCHART NA * HX-C trach Amp RNA (09/29/2014 2:20 PM 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 HAY STACKER) Chlamydia trachomatis amplified RNA Negative POWERCHART 09/29/2014 2:20 PM 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 HAY STACKER Migdalia Waller LAB HISTORICAL ORDERS Final Result POWERCHART from Last 3 Months or Most Recently Relevant to Health Maintenance Insurance [facility] Care Teams Voice Intercept Technician Relationship Specialty Start Date End Date Elsewhere, Pcp PCP - General Internal Medicine 03/30/22
--- OUTSIDE RECORDS SUMMARY | 2025-06-08 16:10 | XMS_ITS | Clinical Summary ---
Author Organization [employer] [facility] Address [address] [place] [address] Care Team Providers Care Technician Chemical Cleaning Name Role Phone Mikel Carter MD Primary Care Provider [phone] Linwood Ortega MD Unavailable Allergies No known active allergies Medications acetaminophen (TYLENOL) 325 mg tablet Take 1 Tablet by mouth. Active polyethylene glycoL (MIRALAX) 17 gram/scoop powderIndications: Chronic constipation Mix 1 scoop (17 g) in liquid then take by mouth once daily. 510 g 3 04/21/20 24 Active triamcinolone 0.5 % ointmentIndication s:Hand dermatitis Apply topically to affected area(s) two times daily. 30 g 2 12/01/19 25 Active doxylamine-pyridox ine (vit B6) 10-10 mg TbECIndications:Na usea and vomiting in (HC) Take 1 Tablet by mouth at bedtime if needed (nausea and vomiting). 10 Tablet 02/17/20 25 Active aspirin 81 mg enteric coated tabletIndications: Hx of preeclampsia, prior , currently , first trimester (HC) Take 1 Tablet (81 mg) by mouth once daily with a meal. 90 Tablet 3 02/18/20 25 Active famotidine 20 mg tabletIndications: Heartburn during in first trimester (HC) Take 1 Tablet (20 mg) by mouth two times daily. 180 Tablet 3 02/18/20 25 Active ondansetron 4 mg tabletIndications: Nausea and vomiting in (HC) Take 1 Tablet (4 mg) by mouth every 8 hours if needed for Nausea/Vomiti ng. 30 Tablet 03/18/20 25 Active albuterol HFA (ProAir HFA) 90 mcg/actuation inhalerIndications :Viral URI Inhale 1-2 Puffs by mouth every 4 hours if needed for Wheezing 1st choice. 1 Each 05/13/20 25 Active citalopram 20 mg tabletIndications: Anxiety Take 1 Tablet (20 mg) by mouth once daily. Start with 1/2 tablet (10 mg) x 1 week, then increase to full tablet (20 mg) daily. 30 Tablet 03/18/20 25 025 Discontin ued(*Med complete/ Regimen complete/ Level of care change) trimethoprim-polym yxin b ophthalmic solutionIndication s:Acute bacterial conjunctivitis of both eyes Place 1 Drop into both eyes every 4 hours. 10 mL 04/28/20 25 025 Discontin ued(*Med complete/ Regimen complete/ Level of care change) Active Problems Problem Noted Date Diagnosed Date Hx of preeclampsia, prior pr egnancy, currently , second trimester 05/27/2025 History of shoulder dystocia in prior 04/28/2025 History of hemorrhage 04/28/2025 Hx of preeclampsia, prior pr egnancy, currently , first trimester 04/28/2025 Abnormal glucose affecting 01/17/2024 Low-lying placenta in third trimester 12/20/2023 Overview (01/24/2024): US OB FOLLOW UP PER [facility]ETUS (05061.0) +Transvaginal ultrasound (TVUS) 01/24/24 Referred By: MIKEL CARTER MD INDICATION:Low lying placenta Indications Code 32 weeks gestation of Z3A.32 11/15 L2: EFW = 37% with low lying placenta ( 0.46cm from os) Declined serum screening 01/24/24 MPP Growth and placenta check today (TVUS): EFW 2322 grams (75%/AC 88%) Placental edge lies 1.1cm from the internal cervical os with TV views. Placental lakes are noted on today's scan. IMPRESSION: Intrauterine at 32w 5d. presentation is Cephalic. EFW 2322 grams, percentile: 75 (AC 88%) Deepest Vertical Pocket of amniotic fluid: 3.62 cm. No major anomalies identified on limited survey. Appropriate symmetric growth. The cervical length is 3.8 cm. There is a POSTERIOR low lying placenta with placental edge: Placental edge lies 1.1cm from the internal cervical os with TV views. Placental herzog is noted on today's scan. Vaginal ultrasound shows no evidence of vasa previa. RECOMMENDATIONS: -Return to primary provider for continued care. -Follow up TVUS to reassess leading edge of low lying placenta is scheduled with [facility] at 36 weeks -Vaginal delivery is a safe option if the leading edge of the placenta is at least 11mm from the internal os as the overall risk of intrapartum bleeding is low. Patient should be delivered in a hospital with adequate resources for emergent delivery if a trial of labor is desired. -Planned remains a reasonable alternative if the placental edge is 11- 20 mm from the internal os. If the patient desires a section, we recommend this be scheduled at 39 weeks. INITIAL LEVEL II SONOGRAM 11/15/23 Referred By: MIKEL CARTER MD Indications Code 22 weeks gestation of Z3A.22 ? complete previa Declined serum screening. IMPRESSION: Intrauterine at 22w 5d. presentation is Cephalic. EFW 512 grams, percentile: 37. biometry is fairly symmetrical. Growth parameters and estimated weight are appropriate for the gestational age. No major structural anomalies were identified. No markers for aneuploidy were identified. Normal Deepest Vertical Pocket of amniotic fluid: 5.35 cm. Placental location: Posterior. Placental edge lies 0.46 cm from the internal cervical os. There is no evidence of placenta previa. The transabdominal cervical length is 3.1 cm. RECOMMENDATIONS: -Return to primary provider for continued care. -A follow up ultrasound for growth is recommended in 10 weeks. -The patient was directed to schedule with [facility] as discussed at their visit today. 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 GEORGE: 03/15/24 Early US: Date: 08/08/23 GA: 8w5d GEORGE: 03/14/24 PrePregnancy Weight: 127 Height: 5'4 BMI: 21.8 PLANS & FUTURE APPOINTMENTS: ULTRASOUND/GROWTH PLAN: - Through: - Growth: Next TESTING PLAN: - Testing: Through DELIVERY PLAN: - Scheduled delivery: - Preferred delivery location: PRIMARY DIAGNOSIS: 28 y.o. Estimated Date of Delivery: 03/15/24 MATERNAL 01/23 Placental edge lies 1.1cm from the internal cervical os with TV views - Placental herzog is noted on today's scan Depression/anxiety 2019 Term (PreE) PREVIOUS ULTRASOUNDS: 01/24/24 32W5D EFW 2322 grams, percentile: 75 (AC 88%) 11/15/24 22w5d EFW 512 grams, percentile: 37. 11/01/23 20w5d 395 grams, percentile: 64. Posterior placenta with complete placenta previa. The HC/AC ratio measures: 1.08 range (1.09-1.26) (PCP) ECHO: REFERRING PHYSICIAN/PHONE/LAST UPDATE: Mikel Carter MD Primary MD approves scheduling of recommended ultrasounds/testing: Yes SPECIALISTS/CONSULTS: Include: Specialty MD Clinic Name Phone# [facility] [place] and ADDED TO PATIENT CARE TEAM Yes GENETICS: Declines/Not Done CARE COORDINATION: PERTINENT LABS: Labs reviewed? yes Normal? yes Blood type: O Rh Positive Antibody screen: Negative PERTINENT MEDS: bASA Cymbalta PROCEDURES: IF FGR <10% or EFW <2000 grams: Add FGRPCOM PLAN OF CARE: Original and updated POC 01/23 per [facility] Return to primary provider for continued care. -Follow up TVUS to reassess leading edge of low lying placenta is scheduled with [facility] at 36 weeks -Vaginal delivery is a safe option if the leading edge of the placenta is at least 11mm from the internal os as the overall risk of intrapartum bleeding is low. Patient should be delivered in a hospital with adequate resources for emergent delivery if a trial of labor is desired. -Planned remains a reasonable alternative if the placental edge is 11- 20 mm from the internal os. If the patient desires a section, we recommend this be scheduled at 39 weeks. 07/31/2023 Overview (03/04/2024): Estimated Date of Delivery: 03/15/24 Patient's last menstrual period was 06/09/2023 (exact date). GBS- Vaginal/Rectal OB Strep B PCR Date Value Ref Range Status 02/14/2024 Negative Final 28wk labs: GLUCOSE,GESTATIONAL Date Value Ref Range Status 12/20/2023 172 (H) 70 - 139 mg/dL Final GLUC JAMES,FAST (GEST) Date Value Ref Range Status 12/25/2023 88 65 - 95 mg/dL Final GLUC JAMES,1HR (GEST) Date Value Ref Range Status 12/25/2023 167 65 - 180 mg/dL Final GLUC JAMES,2HR (GEST) Date Value Ref Range Status 12/25/2023 138 65 - 155 mg/dL Final GLUC JAMES,3HR (GEST) Date Value Ref Range Status 12/25/2023 49 (LL) 65 - 140 mg/dL Final HEMOGLOBIN Date Value Ref Range Status 12/20/2023 11.7 (L) 12.0 - 16.0 g/dL Final TREPONEMA PALLIDUM Date Value Ref Range Status 12/20/2023 Non-Reactive Non-Reactive Final Last Tdap- 01/03/24 Last Flu vaccine- 09/04/22 OB Labs: ABORH Date Value Ref Range Status 07/31/2023 O Rh Positive Final ANTIBODY SCREEN Date Value Ref Range Status 07/31/2023 Negative Negative Final TREPONEMA PALLIDUM Date Value Ref Range Status 07/31/2023 Negative Negative Final RUBELLA IGG ANTIBODY Date Value Ref Range Status 07/31/2023 1.71 >=1.00 Index Final INTERPRETATION Date Value Ref Range Status 07/31/2023 Positive Final Comment: Presence of detectable IgG antibodies. A positive result generally indicates exposure to the virus or previous vaccination, but is not an indication of active infection or stage of disease. HBSAG Date Value Ref Range Status 07/31/2023 Nonreactive Nonreactive Final HEPATITIS C ANTIBODY Date Value Ref Range Status 07/31/2023 Non-Reactive Non-Reactive Final Comment: Please note, per www.CDC.gov: If a patient is known to be at high risk of HCV infection, or is symptomatic, and the physician's suspicion of HCV infection is high, HCV RNA testing is often employed and is of diagnostic value, even after an initial negative anti-HCV test result. HIV-1/HIV-2 SCREEN Date Value Ref Range Status 07/31/2023 Non-Reactive Non-Reactive Final Comment: HIV-1 p24 and HIV-1/HIV-2 Ab Not Detected. PLATELET COUNT Date Value Ref Range Status 12/16/2023 232 140 - 440 thou/cu mm Final CHLAMYDIA PROBE Date Value Ref Range Status 07/31/2023 Negative Final N GONORRHOEAE PROBE Date Value Ref Range Status 07/31/2023 Negative Final No Known Allergies OB History Para Term AB Living 4 1 1 0 2 1 SAB IAB Ectopic Multiple Live Births 2 0 0 0 1 # Outcome Date GA Lbr Thompson/2nd Weight Sex Delivery Anes PTL Lv 4 Current 3 SAB 02/16/23 SPONTANEOUS 2 Term 09/24/19 39w1d KRISTYN Name: Naomie 1 2015 Past Medical History: . Date Depression Diarrhea GBS (group B Streptococcus carrier), +RV culture, currently 09/01/2019 Hx of preeclampsia, prior , currently Migraine headache Prior complicated by PIH, antepartum, unspecified trimester Smoking UTI (urinary tract infection) Past Surgical History: . Laterality Date LAPAROSCOPY ABDOMEN DIAGNOSTIC 2015 at [facility] following spontaneous Ab Problems (from 07/31/23 to present) No problems associated with this episode. JOHNATHAN AN RN ....07/31/2023 2:33 PM History of hemorr carmen, currently , third trimester 10/16/2022 Hx of preeclampsia, prior pr egnancy, currently , third trimester 10/16/2022 Low grade squamous intraepit helial lesion on cytologic smear of cervix (LGSIL) 09/18/2021 Overview (09/09/2023): 02/2019 ASCUS/HPV+ (age 23) 03/2020 NIL/HPV negative 09/2021 LSIL/HPV negative 08/2022 NIL/HPV negative 08/2023 NIL/HPV negative Plan: HPV based testing in 5 years. Lactose intolerance 02/23/2016 Estimated Date of Delivery Comme nts Yes 09/17/2025 Based on Ultraso und Resolved Problems Problem Noted Date Diagnosed Date Resolved Date Hx of preeclampsia, prior pr egnancy, currently 12/20/2023 01/23/2024 03/08/2023 07/31/2023 Overview (03/13/2023): Estimated Date of Delivery: 11/07/23 Patient's last menstrual period was 01/31/2023 (exact date). GBS- Last Tdap- 07/14/19 Last Flu vaccine- 09/04/22 Glucose (GTT) result- Recent Labs 03/08/23 1500 HGB 13.2 ABORH O Rh Positive RCBANTIBODY Negative TREPONEPALLI Negative RUBELLAIGG 1.67 Positive HBSAG Negative HEPCABY Non Reactive Comment [id number] Non Reactive No Known Allergies OB History Para Term AB Living 3 1 1 0 1 1 SAB IAB Ectopic Multiple Live Births 1 0 0 0 1 # Outcome Date GA Lbr Thompson/2nd Weight Sex Delivery Anes PTL Lv 3 Current 2 Term 09/24/19 39w1d KRISTYN 1 SAB 2016 Past Medical History: . Date Depression Diarrhea GBS (group B Streptococcus carrier), +RV culture, currently 09/01/2019 Hx of preeclampsia, prior , currently Migraine headache Prior complicated by PIH, antepartum, unspecified trimester Smoking UTI (urinary tract infection) Past Surgical History: . Laterality Date NO PREVIOUS SURGERY No data on file. #2 Problems (from 03/08/23 to present) No problems associated with this episode. JOHNATHAN AN RN ....03/08/2023 3:10 PM Acute viral syndrome 10/16/2022 024 Elevated serum creatinine 10/16/2022 Enteritis 10/16/2022 01/23/2024 Hypertension 10/16/2022 01/23/2024 Snoring 10/16/2022 01/23/2024 Stress 10/16/2022 01/23/2024 Uterine cramping 10/16/2022 01/23/2024 Exophthalmos 03/16/2022 01/23/2024 Tension type headache 03/16/20222023 Gastroesophageal reflux disease 03/12/2022 01/23/2024 Proteinuria 03/12/2022 01/23/2024 Daily headache 01/05/2022 01/23/2024 Daytime hypersomnolence 01/05/2022 03/0 05/2024 Pelvic pain 01/05/2022 01/23/2024 Moderate episode of recurren t major depressive disorder 07/09/2019 01/23/2024 Generalized anxiety disorder 07/09/2019 01/23/2024 Encounter for supervision of normal first in first trimester 03/24/2019 03/20/2023 Nausea and vomiting in 03/24/2019 01/23/2024 03/11/2019 03/21/2023 Overview (09/09/2019): Component Latest Ref Rng & Units 09/01/2019 09/01/2019 09/01/2019 9:55 AM 9:55 AM 10:19 AM HEMOGLOBIN 12.0 - 16.0 g/dL 11.4 (L) MCV 80 - 100 fL 88 Culture RESULT (A) Streptococcus Group B Estimated Date of Delivery: 09/30/19 Patient's last menstrual period was 12/20/2018. Last Tdap- 07/14/2019 Last Flu vaccine- 08/11/2019 Glucose (GTT) result- Component Latest Ref Rng & Units 06/29/2019 HEMOGLOBIN 12.0 - 16.0 g/dL 10.6 (L) MCV 80 - 100 fL 89 GLUCOSE,GESTATIONAL 65 - 139 mg/dL 101 20 week US: Sonographic imaging demonstrates a single living intrauterine gestation. Fetus demonstrates a regular cardiac rate of 158 beats per minute. Fetus has a vertex position. The placenta lies fundal without evidence of placenta previa. Amniotic fluid volume appears normal. Single deepest vertical pocket: 5.2 cm. The cervix is not well visualized. The composite ultrasound gestational age is calculated at 21 weeks 3 days with an estimated sonographic due date of September 27, 2019. The estimated weight is 422 grams which lies at the 52nd %. The following biometric measurements were obtained: No Known Allergies OB History Para Term [...] with this episode. MICHELLE Rojas.....03/11/2019 10:09 AM Chronic pharyngitis 12/23/2018 01/23/20 24 Overview (10/16/2022): Suspect element of chronic fatigue syndrome contributing to symptoms in addition to depression anxiety Would recommend Rapid strep testing for acute symptoms but avoid antibiotic therapy or other similar treatments unless rapid strep positive Patient would benefit from tonsillectomy, currently in the process establishing health insurance to help make this possible Vitamin D deficiency 03/23/2015 024 Herpetic gingivostomatitis 07/04/2013 0 01/23/2024 Encounters Date Type Department Care Team Description 05/27/2025 2:25 PM CDT OB Encounter [facility] [place] [address] [facility] [place] [address] Mikel Carter MD Care (23w6d) 05/26/2025 Travel 05/13/2025 1:40 PM CDT Office Visit [facility] [place] [address] [facility] [place] [address] Elisa Medel PA Cough 05/13/2025 Travel 05/03/2025 4:00 PM CDT Ancillary Procedure [facility] [place] [address] [facility] [address] 05/03/2025 Travel 04/30/2025 Nurse Triage [facility] [place] [address] [facility] [place] [address] Shanice Crump RN Chest Pain/problem 04/28/2025 3:15 PM CDT OB Encounter [facility] [place] [address] [facility] [address] Mikel Carter MD Care (19w5d) 04/28/2025 Travel 03/18/2025 2:50 PM CDT OB Encounter [facility] [place] [address] [place] [address] Mikel Carter MD Care (13w6d) 03/18/2025 Travel from Last 3 Months Immunizations Immunization Administration Dates Next Due DTaP 12/25/2006, 0,12/17/1996,02/11,1995,1995 HPV 9 (Gardasil 9) 09/27/2021,04/19/2021, 021 Hepatitis A (Peds) 02/06/2005,08/09/2004 Hepatitis B (Peds) 04/08/1996,1995, 995 Inactivated Polio Vaccine 08/13/2000,,1995,10/07 Influenza Virus, Unspecified 09/08/2014 Influenza, IIV4 09/04/2022,08/11/2019 Influenza, IIV4 (=>6mos) MDV 08/16/2015 MENINGOCOCCAL VACCINE 2 VIAL 2MO-55YO (MENVEO) 06/09/2012 MMR 09/27/2019,08/13/2000,12/17/1996 Meningococcal Vaccine (Menactra) 03/18/2007 Tdap 01/03/2024,07/14/2019,12/24/2006 Varicella Vaccine 07/15/2008,03/18/2007,12/17/18 97 Family History Medical History Relation Name Comments Arthritis Brother Mental illness Brother Good Health Father Good Health Half-Brother Diabetes Maternal Aunt Good Health Maternal Grandfather Good Health Maternal Grandmother Lupus Mother Good Health Paternal Grandfather Good Health Paternal Grandmother Diabetes Sister 3 Hellen Relation Name Status Comments Brother Alive Father Alive Half-Brother Maternal Aunt Maternal Grandfather Maternal Grandmother Alive Mother Paternal Grandfather Paternal Grandmother Sister 1 Alive Sister 2 Alive Sister 3 Hellen Alive Social History Tobacco Use Types Packs/Day Years Used Date Smoking Tobacco: Former Cigarettes 0.3 4 2 018 - 2021 Smokeless Tobacco: Never Tobacco Cessation:Counseling Given: Not Answered Comments:2 cigarettes a week Alcohol Use Standard Drinks/Week Comments Not Currently 0 (1 standard drink = 0.6 oz pur e alcohol) occassional, to very rare PHQ-2 Answer Date Recorded PHQ-2 TOTAL SCORE 0 06/03/2024 Social Connections Answer Date Recorded Do you often feel lonely or isolated from those around you? 0 04/28/2025 Financial Resource Strain Answer Date R ecorded Difficulty of Paying Living Expenses 3 04/28/2025 Difficulty of Paying Living Expenses Not on file 04/28/2025 Food Insecurity Answer Date Recorded Do you worry your food will run out before you are able to buy more? 1 04/28/2025 Transportation Needs Answer Date Record ed Does lack of transportation keep you from medica l appointments? 1 04/28/2025 Does lack of transportation keep you from work, meetings or getting things that you need? 1 04/28/2025 Housing Stability Answer Date Recorded What is your housing situation today? 1 04/28/2025 Interpersonal Safety Answer Date Record ed Are you being hit, kicked, p ushed or yelled at (see row info)? No 01/13/2025 Interpersonal Safety Abuse 12 - 18 Not on file 01/13/2025 Interpersonal Safety Ambulatory Vulnerability No t on file 01/13/2025 Utilities Answer Date Recorded Do you have trouble paying f or utilities (for example, heat, electricity, water, phone)? 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 Gender Identity Not on file Sexual Orientation Not on file Obstetrics History Para Term AB IAB SAB Ectopic Multiple Livin g Live Births 5 2 2 0 2 0 2 0 0 2 2 Date Outcome GA Total Labor Labor/2nd/3rd Weight Sex Type Anes PTL Kristyn A1 A5 Name Clin 2016 SAB 2018 Term 39w 1d Livin g Naomie 2022 SAB SPONTA NEOUS 2023 Term 38w 3d Vag Epidur al Livin g Jean-Paul Carter MD Complications:Shoulder Dysto zoë, Hemorrhage Current Summary Episode Dates Number of Fetuses Estimated Date of Delivery 02/17/2025 - Present (06/08/2025) 1 09/17/2025 (set by Cha Carter MD on 02/17/2025 based on Ultrasound on 01/21/2025) Dating Summary Based On GEORGE GA Diff Last Menstrual Period on 12/03/2024 (Approximate ) 09/09/2025 +1w1d Ultrasound on 01/21/2025 09/17/2025 Working GA:5w6d Vitals Pregravid Weight Height TWG (As of 06/08/2025) Pregrav id BMI 64.4 kg (142 lb) 4.72 kg (10 lb 6.4 oz) Notes Progress Notes - OB Encounte r - 05/27/2025 - GA:23w6d 05/27/2025 - 23w6d - Radha Carter MD Patient is here for routine care at 23w6d Concerns: none, feeling well OB problems: History of preeclampsia (1st ) and gestational hypertension (2nd ) - on baby aspirin - blood pressure within normal limits - had severe features with first requiring Magnesium -- BP, proteinuria, headache (different dad than 2nd and 3rd pregnancies) History of shoulder dystocia- 30 second shoulder with last (resolved with Randy and delivery of posterior arm) - planning on growth scan History of hemorrhage (QBL 1055) Received cytotec, pitocin, hemabate and TXA Anxiety - stopped citalopram GTT at 28 weeks, will schedule outside of our scheduled visit as she has afternoon visits. No Contractions, bleeding, loss of fluid No vision changes, edema, right upper quadrant pain. Manageable headaches (occasionally) Baby is moving well Discussed signs/symptoms of labor and when to call Reviewed preeclampsia symptoms RTC in 4 weeks, sooner with concerns Mikel Carter MD .................... 05/27/2025 3:14 PM CC: [facility] [place] Notes - OB Encounte r - 04/28/2025 - GA:19w5d 04/28/2025 - wd - Radha Carter MD Patient is here for routine care at 19w5d OB problems: History of preeclampsia (1st ) and gestational hypertension (2nd ) - on baby aspirin - blood pressure within normal limits - had severe features with first requiring Magnesium -- BP, proteinuria, headache (different dad than 2nd and 3rd pregnancies) History of shoulder dystocia- 30 second shoulder with last (resolved with Randy and delivery of posterior arm) - planning on growth scan History of hemorrhage (QBL 1055) Received cytotec, pitocin, hemabate and TXA Anxiety - on citalopram Concerns: Went to ER 04/03 with headache/dizziness. Feeling better. Has pain on the left lateral leg while sleeping on side. Has switched to sleeping on the right. Exam concerning for trochanteric bursitis. Got done with work on 04/23. Went to [facility] [place] in [place]. After had drainage from eyes, gooey, sticky. Not itchy. Mattery eye. Eyes show no injection but does show some yellow mattering. - eye drops sent if not improving. No Contractions, bleeding, loss of fluid No Headache, vision changes, edema, right upper quadrant pain. Baby is moving well survey on Saturday Discussed signs/symptoms of labor and when to call Reviewed preeclampsia symptoms Mikel Carter MD .................... 04/28/2025 3:36 PM CC: [facility] [place] Progress Notes - OB Encounte r - 03/18/2025 - GA:13w6d 03/18/2025 - wd - Radha Carter MD Patient is here for routine care at 13w6d Concerns: some cramping. No bleeding, loss of fluid Baby not felt. Had court on 03/01 for daughter's custody. Waiting for verdict Wants to restart SSRI Will trial citalopram (did not do well on zoloft/prozac) Discussed signs/symptoms of labor and when to call Reviewed preeclampsia symptoms RTC in 4 weeks Mikel Carter MD .................... 03/18/2025 3:08 PM CC: [facility] Progress Notes - OB Encounte r - 02/17/2025 - GA:9w5d 02/17/2025 - wd - Me tyler Carter MD Clinic Note: First OB Visit 02/17/2025 Gini Cade is a 29 y.o. with Estimated Date of Delivery: None noted., here today for a first visit. Is taking with water. History of Present Illness The patient is a 29-year-old female presenting for her first OB visit. Dating ultrasound on 01/21/2025 showed a 5-week 6-day gestation with GEORGE of 09/17/2025 and a borderline low heart rate of 102. She reports severe nausea impacting her ability to consume food or beverages, including water, unlike her previous . She is uncertain about weight loss but reports no dizziness or lightheadedness. She experiences daily vomiting, with varying severity. Vitamin B6 and Unisom have been ineffective. She takes vitamins with water and has not used Imitrex during this . She has not vomited today but has not consumed any food. She reports a metallic taste in her mouth. No history of thalassemia, neural tube defects, congenital heart defects, Down syndrome, Xavi-Sachs disease, Preet disease, familial dysautonomia, sickle cell disease, hemophilia, muscular dystrophy, cystic fibrosis, Hale's disease, intellectual disability, other inherited genetic or chromosomal disorders, type 1 diabetes, PKU, recurrent loss, drug or alcohol use since confirming , genital herpes, or STDs. No genetic testing planned unless abnormalities are detected on ultrasound. She feels well overall, apart from fatigue and constant nausea. No significant cramping. Previously on Micronor for control. Intermittent Headaches and Chest Pain She reports intermittent headaches and chest pain, initially thought to be heartburn but now suspected to be acid-related. Pain is sharp and severe, often disrupting sleep. Tums have resulted in vomiting. Vaginal Odor She reports recurrence of vaginal odor, previously managed with OdorBlock as advised by Dr. Pineda. No discharge but decreased urination frequency despite increased water intake. 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 Not . FAMILY HISTORY No family history of congenital heart defects, Down syndrome, Xavi-Sachs disease, Preet disease, familial dysautonomia, sickle cell disease, hemophilia, muscular dystrophy, cystic fibrosis, Hale's disease, intellectual disability, other inherited genetic or chromosomal disorders, type 1 diabetes, or PKU. MEDICATIONS Current: vitamins, vitamin B6, Unisom. Past: Imitrex. IMMUNIZATIONS Received 3 vaccines for chickenpox. 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 Contraception: was on micronor oral contraceptives OBUS: IMPRESSION: 1. Single viable intrauterine measuring 5 weeks 6 days with GEORGE of 09/17/2025. Borderline low heart rate, although this could be secondary to early state. Short interval follow-up ultrasound can be considered for reassessment. 2. Increased size of subchorionic hemorrhage measuring up to 2.5 cm, previously 0.4 cm. This can also be reassessed on short interval follow-up ultrasound to exclude continued enlargement. MEDICAL HISTORY Medical, surgical, family, and social history reviewed today and updated if necessary. Past Medical History: . Date Chronic pharyngitis 12/23/2018 Suspect element of chronic fatigue syndrome contributing to symptoms in addition to depression anxiety Would recommend Rapid strep testing for acute symptoms but avoid antibiotic therapy or other similar treatments unless rapid strep positive Patient would benefit from tonsillectomy, currently in the process establishing health Daily headache 01/05/2022 Daytime hypersomnolence 01/05/2022 Depression Diarrhea Enteritis 10/16/2022 Exophthalmos 03/16/2022 Gastroesophageal reflux disease 03/12/2022 GBS (group B Streptococcus carrier), +RV culture, currently (HC) 09/01/2019 Generalized anxiety disorder 07/09/2019 Herpetic gingivostomatitis 07/04/2013 Hx of preeclampsia, prior , currently (HC) Hypertension 10/16/2022 Migraine headache Moderate episode of recurrent major depressive disorder (HC) 07/09/2019 Pelvic pain 01/05/2022 Prior complicated by PIH, antepartum, unspecified trimester (HC) Smoking Snoring 10/16/2022 Tension type headache 03/16/2022 UTI (urinary tract infection) Vitamin D deficiency 03/23/2015 Past Surgical History: . Laterality Date LAPAROSCOPY ABDOMEN DIAGNOSTIC 2015 [facility] following spontaneous Ab VAGINAL DELIVERY Family History Problem Relation Age of Onset Lupus Mother Good Health Father Diabetes Sister Mental illness Brother Arthritis Brother Good Health Half-Brother Diabetes Maternal Aunt Good Health Maternal Grandmother Good Health Maternal Grandfather Good Health Paternal Grandmother Good Health Paternal Grandfather Social History Socioeconomic History Marital status: Single Tobacco Use Smoking status: Former Types: Cigarettes Smokeless tobacco: Never Tobacco comments: 2 cigarettes a week Vaping Use Vaping status: Never Used Substance and Sexual Activity Alcohol use: Not Currently Comment: occassional, to very rare Drug use: No Comment: Previously occasionally used marijuana Sexual activity: Yes Partners: Male Other Topics Concern Blood Transfusions No Current Outpatient Medications Medication Sig Dispense Refill acetaminophen (TYLENOL) 325 mg tablet Take 1 Tablet by mouth. aspirin 81 mg enteric coated tablet Take 1 Tablet (81 mg) by mouth once daily with a meal. 90 Tablet 3 doxylamine-pyridoxine (vit B6) 10-10 mg TbEC Take 1 Tablet by mouth at bedtime if needed (nausea and vomiting). 10 Tablet 0 famotidine 20 mg tablet Take 1 Tablet (20 mg) by mouth two times daily. 180 Tablet 3 ondansetron [address] 1 Tablet (4 mg) on the tongue every 8 hours if needed for Nausea/Vomiting. 30 Tablet 0 polyethylene glycoL (MIRALAX) 17 gram/scoop powder Mix 1 scoop (17 g) in liquid then take by mouth once daily. 510 g 3 triamcinolone 0.5 % ointment Apply topically to affected area(s) two times daily. 30 g 2 RISK FACTORS Seat Belt Use: 100% Alcohol/day: 0 Meds/Drugs/ETOH Since LMP: No Control Method: micronor High Risk Behavior: none INFECTION HISTORY Current Drug Use: none HIV Risk Evaluation: low risk Hepatitis B Risk Evaluation: low risk Hepatitis B Immunized: yes Personal History of Genital Herpes: no Partner History of Genital Herpes: no Rash/Viral Illness Since LMP: No History of STD: no history of STD's Other: History of Chicken Pox? no Chicken pox immunization? yes Family history of - defects: no Chromosomal problems: no Stillbirths: no Desire Test for CYSTIC FIBROSIS or SMA? no Desire genetic testing otherwise? no REVIEW OF SYSTEMS: General: no fevers, chills, appetite changes, weight changes, fatigue Eyes: no blurry vision, double vision. Ears/Nose/Throat: no hearing changes, pain. no nasal congestion, rhinorrhea, frequent epistaxis. no throat pain, difficulty swallowing. . Cardiovascular: + chest pain with heartburn. No chest pressure, syncope, orthostatic symptoms Respiratory: no cough, shortness of breath, dyspnea on exertion, orthopnea Gastrointestinal: + nausea, vomiting. No constipation, diarrhea, melena or bright red rectal bleeding Genitourinary - female: no hematuria, dysuria, incontinence, nocturia. no vaginal bleeding, cramping. Musculoskeletal: no back, arm or leg pain Skin: no rashes or lesions Neurologic: no numbness, weakness, tingling, headaches, falls Psychiatric: no depression, anxiety Endocrine: no polyuria, polydipsia, heat or cold intolerance Heme/Lymphatic: no easy bruising, easy bleeding Allergic/Immunologic: no frequent infections PHYSICAL EXAM BP 111/74 (Cuff Site: Left Arm, Position: Sitting, Cuff Size: Adult Regular) Pulse 71 Wt 64.4 kg (142 lb) LMP 12/03/2024 (Approximate) SpO2 99% BMI 25.15 kg/m General Appearance: Alert, well-developed, well-nourished, with appropriate grooming and dress. No acute distress HEENT Exam: PERRL. MMM. TMs pearly bilaterally. Neck / Thyroid Exam: Supple, no masses, nodes or enlargement. Chest/Respiratory Exam: Normal chest wall and respirations. Clear to auscultation. Breast Exam: deferred Cardiovascular Exam: Regular rate and rhythm. Normal S1, S2. No murmur, click, gallop, or rubs. Gastrointestinal Exam: Soft, non-tender, no masses or organomegaly. Pelvic Exam: External genitalia within normal limits. Vulva and vagina appear normal, vaginal mucosa moist and pink. Moderate amount of physiologic discharge present. Lymphatic Exam: Non-palpable nodes in neck, clavicular regions. Musculoskeletal Exam: Back is straight and non-tender, full ROM of upper and lower extremities. Skin: no rash or abnormalities Neurologic Exam: Normal gait and speech, no tremor. DTR's 2+ and symmetric Psychiatric Exam: Alert and oriented, appropriate affect. Assessment & Plan 1. Initial obstetric visit: Currently at 9 weeks and 5 days gestation. - Administer intravenous fluids today for dehydration. - Administer Zofran for nausea. - Initiate Pepcid twice daily for heartburn. - Continue Unisom and B6 regimen. - Collect urine sample today for labs and to rule out bladder infection. - Perform ultrasound next week and communicate results promptly. 2. Nausea and vomiting: Severe. - Administer intravenous fluids and Zofran today. - Continue Unisom and B6. 3. Heartburn: Likely due to acid reflux. - Initiate Pepcid twice daily. 4. Vaginal odor: Recurrence since . - Obtain vaginal swab today to check for infection. 5. History of preeclampsia: Previous . - Start baby aspirin to prevent recurrence. 6. History of shoulder dystocia - will need growth ultrasound 7. Declines DNA testing. Follow-up - Scheduled for follow-up visit in 4 weeks. Orders/diagnoses: ICD-10-CM 1. Supervision of high risk , antepartum (HC) O09.90 TYPE & SCREEN HEMOGLOBIN HBSAG (HBS) ANTI HCV RUBELLA IMMUNE STATUS TREPONEMA PALLIDUM URINE CULTURE [30023.2] URINALYSIS W REFLEX MICROSCOPIC IF POSITIVE [48846.2] URINALYSIS, MICROSCOPIC (Order if definitely want a microscopic) [13262.1] PLATELET COUNT [70790.2] ANTI HIV 1/2 [89648.0] ALT (SGPT) [50762.0] AST (SGOT) [64967.0] CREATININE [96903.2] 2. Hx of preeclampsia, prior , currently , first trimester (HC) O09.291 aspirin 81 mg enteric coated tablet TYPE & SCREEN HEMOGLOBIN HBSAG (HBS) ANTI HCV RUBELLA IMMUNE STATUS TREPONEMA PALLIDUM URINE CULTURE [76905.2] URINALYSIS W REFLEX MICROSCOPIC IF POSITIVE [58042.2] URINALYSIS, MICROSCOPIC (Order if definitely want a microscopic) [62328.1] PLATELET COUNT [82225.2] ANTI HIV 1/2 [08179.0] ALT (SGPT) [31071.0] AST (SGOT) [63476.0] CREATININE [74020.2] PROTEIN/CREAT RATIO,URINE 3. Vaginal odor N89.8 TRICHOMONAS, AMPARO, AND BACTERIAL VAGINOSIS BY MARIELLA GC & CHLAMYDIA DNA PCR [[id number]] 4. Heartburn during in first trimester (HC) O26.891 famotidine 20 mg tablet R12 5. Nausea and vomiting in (HC) O21.9 ondansetron 4 mg injection (ZOFRAN) ND INFUSION NORMAL SALINE SOLUTION 1000 CC ND THER PROPH/DX NJX IV PUSH SINGLE/1ST SBST/DRUG ND IV INFUSION HYDRATION INITIAL 31 MIN-1 HOUR ondansetron 4 mg disintegrating tablet 6. History of shoulder dystocia in prior Z87.59 7. History of gestational hypertension Z87.59 Z86.79 Mikel Carter MD .................... 02/17/2025 10:41 AM [facility] [phone] CC: [facility] Last Filed Vital Signs Vital Sign Reading Time Taken Comments Blood Pressure 112/73 05/27/2025 2:46 PM CDT Pulse 86 05/27/2025 2:46 PM CDT Temperature 36.7 C (98.1 F) 05/13/2025 1:47 PM CDT Respiratory Rate 16 01/13/2025 4:30 PM APPLICATIONS INSTRUCTOR Oxygen Saturation 97% 05/27/2025 2:46 PM CDT Inhaled Oxygen Concentration - - Weight 69.1 kg (152 lb 6.4 oz) 05/27/2025 2:46 P M CDT Height 160 cm (5' 3) 01/13/2025 4:30 PM APPLICATIONS INSTRUCTOR Body Mass Index 27 01/13/2025 4:30 PM APPLICATIONS INSTRUCTOR Plan of Treatment Upcoming Encounters Date Type Department Care Team (Late st Contact Info) Description 06/23/2025 4:05 PM CDT OB Encounter [facility] [place] [address] [place] [address] Mikel Carter MD [address] [place] [address] 06/25/2025 8:00 AM CDT Orders Only [facility] [place] [address] [facility] [address] [place], [place] 07/07/2025 4:05 PM CDT OB Encounter [facility] [place] [address] [facility] [address] Mikel Carter MD [address] [place] [address] 07/21/2025 4:05 PM CDT OB Encounter [facility] [place] [address] [facility] [address] Mikel Carter MD [address] [place] [address] 08/04/2025 4:05 PM CDT OB Encounter [facility] [place] [address] [facility] [address] Mikel Carter MD [address] [place] [address] 08/17/2025 2:50 PM CDT OB Encounter [facility] [place] [address] [place] [address] Mikel Carter MD [address] [place] [address] 08/25/2025 4:05 PM CDT OB Encounter [facility] [place] [address] [place] [address] Mikel Carter MD [address] [place] [address] 09/01/2025 4:05 PM CDT OB Encounter [facility] [place] [address] [facility] [address] Mikel Carter MD [address] [place] [address] 09/08/2025 4:05 PM CDT OB Encounter [facility] [place] [address] [place] [address] Mikel Carter MD [address] [place] [address] 09/15/2025 3:40 PM CDT OB Encounter [facility] [place] [address] [facility] [address] Mikel Carter MD [address] [place] [address] Health Maintenance Due Date Last Done Comments COVID-19 vaccine series (2023- season) 2024 BMI (ht and wt on same day) for age 18+ 07/31/2024 07/31/2023, 03/08/2023, 12/28/2021, Additional history exists Depression screening for age 12+ 06/04/2025 06/04/2024, 11/05/2023, 11/01/2023, Additional history exists Influenza Vaccine (#1) 2025 , 08/11/2019, 08/16/2015, Additional history exists RSV vaccine for adults or (1 - Risk 1-dose series) 07/23/2025 Pap test for age 21-65 08/30/2028 , 08/30/2023, 09/04/2022, Additional history exists Tetanus booster 01/03/2034 01/03/2024, 06/19, 12/24/2006 Hepatitis B series for 19+ Completed 04/08, 1995, 1995 HIV for age 15-65 Completed 02/17/2025, , 03/08/2023, Additional history exists Hepatitis C screening for age 18-79 Completed 02/17/2025, 07/31/2023, 03/08/2023, Additional history exists Pneumococcal series for age 6-49 Aged Out No longer eligible based on patient's age to complete this topic Procedures Procedure Name Priority Date/Time Associated Diagnosis Comments US OB BASIC ANATOMY SCREEN SINGLE TA Routine 05/03/2025 4:26 PM CDT Anxiety Hx of preeclampsia, prior , currently , first trimester (HC) Supervision of high risk in second trimester (HC) ANTI HIV 1/2 Routine 02/17/2025 12:32 PM CDT Hx of preeclampsia, prior , currently , first trimester (HC) Supervision of high risk , antepartum (HC) ANTI HCV Routine 02/17/2025 12:32 PM CDT Hx of preeclampsia, prior , currently , first trimester (HC) Supervision of high risk , antepartum (HC) FORENSIC INVESTIGATOR THIN PREP PAP SCREEN IMAGED Routine 08/30/2023 10:28 AM CDT Screening for cervical cancer from Last 3 Months or Most Recently Relevant to Health Maintenance Results * US OB BASIC ANATOMY SCREEN SINGLE TA (05/03/2025 4:26 PM CDT) Anatomical Region Laterality Modality , 2or 3 TRIMESTER Ultrasound 05/04/2025 5:47 AM CDT Impressions 05/04/2025 5:47 AM CDT Normal OB ultrasound exam with concordance of clinical and sonographic dating. No intrinsic abnormalities noted on anatomic survey. Dictated by Peyman Johnson MD @ 05/04/2025 5:47:28 AM (Electronically Signed) Narrative 05/04/2025 5:47 AM CDT For Patients: As a result of the Century Cures Act, medical imaging exams and procedure reports are released immediately into your electronic medical record. You may view this report before your referring provider. If you have questions, please contact your health care provider. INDICATION: Evaluate anatomy. COMPARISON: 02/22/2025 TECHNIQUE: Real-time giordano-scale imaging of the fetus was performed as well as color Doppler analysis of the umbilical vessels. Transabdominal imaging was performed. FINDINGS: Sonographic imaging demonstrates a single living intrauterine gestation. Fetus demonstrates a regular cardiac rate of 147 beats per minute. Fetus has a vertex position. The placenta lies posterior without evidence of placenta previa. Amniotic fluid volume appears normal. Single deepest vertical pocket: 4.4 cm. The cervix is closed and measures 3.6 cm in length. The composite ultrasound gestational age is calculated at 20 weeks 5 days with an estimated sonographic due date of 09/15/2025. The estimated weight is 370 grams which lies at the 60th%. The following biometric measurements were obtained: Biparietal diameter: 4.8 cm/20 weeks 5 days 56th% Head circumference: 17.6 cm/20 weeks 1 day 28th% Abdominal circumference: 15.4 cm/20 weeks 5 days 50th% Femur length: 3.5 cm/21 weeks 0 days 60th% The HC/AC ratio measures: 1.14 range (1.09-1.26) On anatomic survey, there is a normal appearance of the cerebral ventricles, cavum septi pellucidi, cisterna magna and cerebellum. The nose, lips, and facial profile appear normal. The cervical, thoracic and lumbar spine are well visualized and appear normal. There is a normal four-chamber heart view and the left and right ventricular outflow tracts appear normal. The diaphragm and stomach appear normal. The kidneys and bladder also appear normal. There is a normal three-vessel cord and cord insertion site. The four extremities appear normal. Procedure Note Peyman Johnson MD - 05/04/2025 For Patients: As a result of the Century Cures Act, medical imagingexams and procedure reports are released immediately into your electronicmedical record. You may view this report before your referring provider.If you have questions, please contact your health care provider. INDICATION: Evaluate anatomy. COMPARISON: 02/22/2025 TECHNIQUE: Real-time giordano-scale imaging of the fetus was performed as well as colorDoppler analysis of the umbilical vessels. Transabdominal imaging wasperformed. FINDINGS: Sonographic imaging demonstrates a single living intrauterine gestation.Fetus demonstrates a regular cardiac rate of 147 beats per minute. Fetushas a vertex position. The placenta lies posterior without evidence ofplacenta previa. Amniotic fluid volume appears normal. Single deepestvertical pocket: 4.4 cm. The cervix is closed and measures 3.6 cm inlength. The composite ultrasound gestational age is calculated at 20weeks 5 days with an estimated sonographic due date of 09/15/2025. Theestimated weight is 370 grams which lies at the 60th%. The following biometric measurements were obtained: Biparietal diameter: 4.8 cm/20 weeks 5 days 56th% Head circumference: 17.6 cm/20 weeks 1 day 28th% Abdominal circumference: 15.4 cm/20 weeks 5 days 50th% Femur length: 3.5 cm/21 weeks 0 days 60th% The HC/AC ratio measures: 1.14 range (1.09-1.26) On anatomic survey, there is a normal appearance of the cerebralventricles, cavum septi pellucidi, cisterna magna and cerebellum. Thefetal nose, lips, and facial profile appear normal. The cervical,thoracic and lumbar spine are well visualized and appear normal. There thai normal four-chamber heart view and the left and right ventricularoutflow tracts appear normal. The diaphragm and stomach appearnormal. The kidneys and bladder also appear normal. There is a normalthree-vessel cord and cord insertion site. The four extremitiesappear normal. IMPRESSION: Normal OB ultrasound exam with concordance of clinical and sonographicdating. No intrinsic abnormalities noted on anatomic survey. Dictated by Peyman Johnson MD @ 05/04/2025 5:47:28 AM (Electronically Signed) us Mikel Carter MD US Final Resul t * ANTI HCV (02/17/2025 12:32 PM CDT) HEPATITIS C ANTIBODY NON-REACTI VE NON-REACT FLORIAN [facility] Comment: HCV antibody was non-reactive. There is no laboratory evidence of HCV infection. In most cases, no further action is required. However, if recent HCV exposure is suspected, a test for HCV RNA (test code 60718) is suggested. For additional information please refer to http://[employer].Artwardly/faq/KMZ52z6 (This link is being provided for informational/ educational purposes only.) Blood BLOOD SPECIMEN / Unknown 02/17/2025 12:32 PM CDT 02/17/2025 12:34 PM CDT us Mikel Carter MD SEND OUTS Final Resul t [employer] [facility] [address] [place] [address], [employer] [facility] [address] [place] [address] * ANTI HIV 1/2 [38597.0] (02/17/2025 12:32 PM CDT) HIV AG/AB, 4TH GEN NON-REACT FLORIAN NON-REACT FLORIAN [facility] [facility] Comment: HIV-1 antigen and HIV-1/HIV-2 antibodies were not detected. There is no laboratory evidence of HIV infection. PLEASE NOTE: This information has been disclosed to you from records whose confidentiality may be protected by state law. If your state requires such protection, then the state law prohibits you from making any further disclosure of the information without the specific written consent of the person to whom it pertains, or as otherwise permitted by law. A general authorization for the release of medical or other information is NOT sufficient for this purpose. For additional information please refer to http://[employer].Artwardly/faq/RFL859 (This link is being provided for informational/ educational purposes only.) The performance of this assay has not been clinically validated in patients less than 2 years old. Blood BLOOD SPECIMEN / Unknown 02/17/2025 12:32 PM CDT 02/17/2025 12:34 PM CDT Mikel Carter MD SEND OUTS Final Resul t [employer] [facility] [address] [place] [address], [employer] [facility] [address] [place] [address] * FORENSIC INVESTIGATOR THIN PREP PAP SCREEN IMAGED [[id number]] (08/30/2023 10:28 AM CDT) Case Report Gynecologic Cytology Report Case: [id number] Authorizing Provider: Mikel Carter MD Collected: 08/30/2023 1028 Ordering Location: [facility] Received: 08/30/2023 [facility] First Screen: Feliciano Sy Specimen: FORENSIC INVESTIGATOR ThinPrep Vial Screening, Cervical 09/05/2023 3:59 PM CDT [facility] INTERPRETATION/ RESULT NEGATIVE FOR INTRAEPITHELIAL LESION OR MALIGNANCY (NIL) (none) 09/05/2023 3:59 PM CDT [facility] at 1558 CDT SPECIMEN ADEQUACY Satisfactory for evaluation No endocervical component seen in a patient 09/05/2023 3:59 PM CDT [facility] HPV REQUEST HPV and PAP 09/05/2023 3:59 PM CDT [facility] Date of LMP 11 weeks preg 09/05/2023 3:59 PM CDT [facility] Last Pap Date 09/04/22 09/05/2023 3:59 PM CDT [facility] Last Pap Result NIL 3:59 PM CDT [facility] Abnormal Pap or [place] Bx in last 5 years No 09/05/2023 3:[address] [facility] Menstrual Status 09/05/2023 3:[address] [facility] [place] Bx Done Today No 09/05/2023 3:[address] [facility] Additional Information None given 09/05/2023 3:59 PM CDT [facility] Comment: Cytology is screened at [facility] - [address], [place] [address] and [facility] - [address] [place] [address] [facility] - [address] [place] [address] Interpreted at [facility] - [address], [place] [address] Automated Review Successful 09/05/2023 3:59 PM CDT [facility] Comment:Specimen processed s uccessfully by automated nutrition specialist device, ThinPrep Imaging System, [employer] ANCILLARY TESTING FORENSIC INVESTIGATOR HPV Ordered, Please see separate report 09/05/2023 3:[address] [facility] Note The pap test is a screening technique, not a diagnostic procedure. It is used primarily to screen for squamous cancers and precursor lesions. Published studies have shown that it is subject to both false negative and false positive results. The pap test should not be used as the sole means to diagnose or exclude pre-malignant and malignant lesions. 09/05/2023 3:[address] [facility] Other (Cervical) Non-Blood / Unknown 08/30/2023 10:28 AM CDT 08/30/2023 10:38 AM CDT us Mikel Carter MD PATHOLOGY/CYTOLOGY Final Re sult [facility] 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
[2025-06-08 16:19] VITALS: BP 121/68; PULSE 116; RESP 22; TEMP 36.9; O2SAT 95; BMI 25.9
--- NOTE | 2025-06-08 16:42 | ED.GENADULT ---
HPI - General Adult General Chief complaint: Cough Stated complaint: Cough, weak, night sweats, headache Time Seen by Provider: 06/08/25 16:12 History of Present Illness HPI narrative: Pt here for productive cough, headache , fatigue, rigors, and low back pain. Denies measurable fever. Reports children are also sick. - 25w4d . Denies abdominal pain or cramping. No vaginal bleeding or discharge. Reports decreased movement in the last few days. OB care w / Dr. Carter at [facility]. Took tylenol at 0930 this morning w /o relief. Also mentions an episode of emesis today. 29-year-old woman presenting to the emergency department with concern of cough and headache. She feels tired. Here with young child who had a cold which she appears to think has passed to her. Boyfriend also sick with similar. in 25th week of . Not having any abdominal pain or cramping. No bleeding. Does have some chest pain but only when she coughs she says. Over the last couple of days has been feeling quite as much movement. Did vomit today. Denies ear pain. Related Data Home Medications ?Medication ?Instructions ?Recorded ?Confirmed vitamins with calcium 1 tab PO DAILY 02/11/23 06/08/25 no.72-iron 27 mg-folic acid 1 mg tablet ( Vitamins Plus Low Iron) triamcinolone acetonide 0.1 % 1 applic topical BID 02/11/23 03/02/24 lotion aspirin 81 mg tablet,delayed 81 mg PO DAILY 06/08/25 06/08/25 release famotidine 20 mg tablet 20 mg PO BID 06/08/25 06/08/25 Previous Rx's ?Medication ?Instructions ?Recorded acetaminophen 500 mg tablet 1,000 mg (2 x 500 mg) PO Q6H PRN 03/06/24 #30 tabs docusate sodium 100 mg capsule 100 mg PO DAILY #30 caps 03/06/24 ibuprofen 600 mg tablet 600 mg PO Q6H PRN #30 tabs 03/06/24 ondansetron 4 mg disintegrating 4 mg PO Q6H #20 tabs 01/26/25 tablet Allergies Allergy/AdvReac Type Severity Reaction Status Date / Time No Known Drug Allergies Allergy Verified 06/08/25 16:24 Review of Systems Status of ROS: Reports: 6 or more systems reviewed and unremarkable except as noted in History and below [facility] Medical History Gestational hypertension ?O13.9 - Gestational [-induced] hypertension without significant proteinuria, unspecified trimester (ICD-10) hemorrhage of vagina ?O72.1 - Other immediate hemorrhage (ICD-10) (normal spontaneous vaginal delivery) ?O80 - Encounter for full-term uncomplicated delivery (ICD-10) Social History What is your current living situation?: I presently have a place to live Problems where you live: no known problems In the past 12 months, utilities in danger of being shut off: no In past 12 months, lack of transportation kept you from medical appts, meetings, work, or getting things needed for daily living: no In the past 12 mos, have been you worried that your food would run out before you had money to buy more?: never true In the past 12 mos, the food you bought just didn't last and you didn't have money to buy more?: never true Smoking Status: Former smoker What tobacco products do you use: cigarettes Smoking quit date/years: <= 15 years ago Do you use any of these nicotine containing products: None Second hand tobacco smoke exposure: No How often do you have a drink containing alcohol: never How often do you have six or more drinks on one occasion: Never AUDIT-C Alcohol total score: 0 Non-prescribed substance use: denies use How often does anyone, including family, friends and others, physically hurt you: never How often does anyone, including family, friends and others, insult or talk down to you: never How often does anyone, including family, friends and others, threaten you with harm: never How often does anyone, including family, friends and others, scream or curse at you: never service: No Exam Narrative: Exam Narrative: Pleasant. Breathing easily. Sounds a little congested in the nasopharynx. Oropharynx is moist. She has no facial pain to palpation. Posterior oropharynx with some cobblestoning. Mild erythema. Neck is supple without adenopathy. Lungs are clear. Heart in elevated rate and regular rhythm. Skin is warm and dry. She is well-perfused. Const: Vital Signs, click to edit/add: Vital Signs - 24 hr 06/08/25 16:19 06/08/25 18:20 06/08/25 18:28 Temperature 98.4 F Pulse Rate [Pulse Oximeter] 116 H 102 H 93 Respiratory Rate 22 22 Blood Pressure [Ri ght Upper Arm] 121/68 114/69 Pulse Oximetry 95 99 Oxygen Delivery Me thod Room Air Documenting provider has reviewed patient's vital signs: yes Course Vital Signs Vital signs: Initial Vital Signs Temperature 98.4 F 06/08/25 16:19 Temperature Source Oral 06/08/25 16:19 Pulse Rate 116 H 06/08/25 16:19 Pulse Rhythm Regular 06/08/25 16:19 Pulse Strength 3+ Normal 06/08/25 16:19 Respiratory Rate 22 06/08/25 16:19 Blood Pressure 121/68 06/08/25 16:19 Blood Pressure Mean 85 06/08/25 16:19 Blood Pressure Position Sitting 06/08/25 16:19 Pulse Oximetry 95 06/08/25 16:19 Oxygen Delivery Method Room Air 06/08/25 16:19 Vital Signs Temperature 98.4 F 06/08/25 16:19 Pulse Rate 116 H 06/08/25 16:19 Respiratory Rate 22 06/08/25 16:19 Blood Pressure 121/68 06/08/25 16:19 Pulse Oximetry 95 06/08/25 16:19 Oxygen Delivery Method Room Air 06/08/25 16:19 Temperature 98.4 F 06/08/25 16:19 Pulse Rate 93 06/08/25 18:28 Respiratory Rate 22 06/08/25 18:20 Blood Pressure 114/69 06/08/25 18:20 Pulse Oximetry 99 06/08/25 18:20 Oxygen Delivery Method Room Air 06/08/25 16:19 Medications Administered Medications: Discontinued Medications Generic Name Dose Route Start Last Admin Trade Name Freq PRN Reason Stop Dose Admin Sodium Chloride 1,000 mls @ 1,000 mls/hr 06/08/25 16:53 06/08/25 18:29 0.9 % Sodium Chloride 1000 Ml IV 06/08/25 17:52 Infused .Q1H ONE Infusion Ondansetron HCl 4 mg 06/08/25 16:53 06/08/25 17:32 Ondansetron 2 Mg/Ml Inj IVP 06/08/25 16:54 4 mg ONCE ONE Administration Medical Decision Making MDM Narrative Medical decision making narrative: Appears to have URI and head cold. Possibly bronchitis for lack of a better term. I think pneumonia less likely. With vomiting and headache as described might benefit from some IV hydration. This does appear to be infectious problem as opposed to something like pulmonary embolus. Postnasal drip likely contributing to cough. With concern of decreased movement did ask for OB to come assess with NST. This apparently was reassuring. Did discuss potential chest x-ray but Gini would prefer to avoid this and even limited radiation. IV was initiated. Given L normal saline. Also Zofran. Urinalysis noted to be with ketones. Looks like fluids were good idea here with some degree of dehydration/malnutrition. On reassessment was also noted to be ambulating without difficulty. Appeared to be feeling better. See patient discharge plan for further discussion Please consult your approved medication list for [id number] cold relief treatments. Approved decongestant I think would be helpful. Otherwise focus on hydration. Sucking on ice chips might help. Sleep with head of bed little elevated. Might sleep under the mist of a cool mist humidifier. Prescribing a brief course of prednisone from [facility]. This should help inflammation and therefore cough and cough related chest pain. Be seen for increasing persistent shortness of breath, worsening chest pain. Medical Records Medical records reviewed: Yes I reviewed the patient's medical records Lab Data Lab results reviewed: Yes I reviewed the patient's lab results Labs: Lab Results 06/08/25 06/08/25 Range/Units 16:33 17:20 Urine Color Yellow (Yellow) Urine Appearance Clear (Clear) Urine pH 6.5 (5.0-8.5) Ur Specific [place] 1.020 (1.000-1.030) Urine Protein 1+ A (Negative) Urine Glucose (UA) Negative (Negative) Urine Ketones 3+ A (Negative) Urine Blood Negative (Negative) Urine Nitrite Negative (Negative) Urine Bilirubin Negative (Negative) Urine Urobilinogen 0.2 (0.2-1.0) Ur Leukocyte Esterase Negative (Negative) Urine RBC 0-2 (0-2) Urine WBC 0-2 (0-5) Ur Squamous Epith Cells Moderate A (None-Few) Amorphous Sediment Few A (None) Urine Bacteria Few A (None) SARS-CoV-2 (PCR) Negative SARS-CoV-2 (Negative) Influenza Type A (PCR) Negative PCR FLU A (Negative) Influenza Type B (PCR) Negative PCR FLU B (Negative) RSV (PCR) Negative PCR RSV (Negative) Discharge Plan Discharge Clinical Impression: URI (upper respiratory infection), Cough Patient Disposition: Home w/ Parent or Adult Condition: Improved Additional Instructions: Please consult your approved medication list for [id number] cold relief treatments. Approved decongestant I think would be helpful. Otherwise focus on hydration. Sucking on ice chips might help. Sleep with head of bed little elevated. Might sleep under the mist of a cool mist humidifier. Prescribing a brief course of prednisone from [facility]. This should help inflammation and therefore cough and cough related chest pain. Be seen for increasing persistent shortness of breath, worsening chest pain. Prescriptions: No Action ondansetron 4 mg tablet,disintegrating 4 mg PO Q6H Qty: 20 0RF triamcinolone acetonide 0.1 % lotion 1 applic TOPICAL BID Vitamin Plus Low Iron 27 mg iron- 1 mg tablet 1 tab PO DAILY acetaminophen 500 mg Tablet 1,000 mg PO Q6H PRNQty: 30 0RF docusate sodium 100 mg Capsule 100 mg PO DAILY Qty: 30 0RF ibuprofen 600 mg Tablet 600 mg PO Q6H PRNQty: 30 0RF aspirin 81 mg tablet,delayed release (DR/EC) 81 mg PO DAILY famotidine 20 mg tablet 20 mg PO BID Follow Up/Referrals: Joanna Carter MD [Primary Care Provider, Family Practice] Stand Alone Forms: [employer] Info Instructions
[2025-06-08 16:50] LABS: Appearance Urine Clear (Clear)
[2025-06-08] MEDS: ONDANSETRON 2 MG/ML inj 4 MG IVP (17:32)
[2025-06-08 18:13] LABS: PCR FLU A Negative PCR FLU A (Negative); PCR FLU B Negative PCR FLU B (Negative); PCR RSV Negative PCR RSV (Negative); SARS PCR* Negative SARS-CoV-2 (Negative)
[2025-06-08 18:20] VITALS: BP 114/69; PULSE 102; RESP 22; O2SAT 99
[2025-06-08 18:28] VITALS: PULSE 93
== END 2025-06-08 19:18 | disposition home or self-care (01) ==
PROVIDERS: Emergency Provider Family Medicine; PCP Family Medicine
DX: J06.9 Acute upper respiratory infection, unspecified (principal)
CPT/HCPCS: 81001; 87086; 87631; 96374; 99283; 99284; J2405; J7030

== ENCOUNTER 2025-07-15 15:20 | Outpatient (CLI) | payer MEDICAID, SELFPAY ==
[2025-07-15 15:26] VITALS: BP 114/55; PULSE 87
[2025-07-15 15:27] VITALS: PULSE 87; O2SAT 94
[2025-07-15 15:42] VITALS: RESP 12; TEMP 36.6
[2025-07-15] MEDS: LACTATED RINGERS 500 ML 500 ML 1000 ML IV (16:44)
--- NOTE | 2025-07-15 18:27 | PC.OBNST ---
NST Note NST Note Start: 07/15/25 15:23 Freq: ONCE Status: Active Protocol: Document 07/15/25 15:23 BRM (Rec: 07/15/25 18:27 BRM [id number]) NST Note 5 Para (# of births) 2 EDC 09/17/25 Gestational Age In 30 Weeks & 6 Days Weeks & Days Patient Presented Decreased movement with Complaint(s) of Reactive Yes Appropriate for Yes Gestational Age RN Grupo Anthony RN Date 07/15/25 Reactive Yes Appropriate for Yes Gestational Age SHERRI Kirby RN Date 07/15/25 OB NST charge Yes Complete NST Note Yes via Write Note The provider's electronic signature indicates the NST is reactive/appropriate for gestational age. *Note to provider: If an addendum is required, open the patient's chart and click on the note under the Nurse/Allied Health tab.
== END 2025-07-15 18:14 | disposition home or self-care (01) ==
LOC: OB OUT 15:21 → OB 15:21
PROVIDERS: PCP Family Medicine; Visit Provider Family Medicine
DX: O36.8130 Decreased fetal movements, third trimester, not applicable or unspecified (principal); Z3A.30 30 weeks gestation of pregnancy
CPT/HCPCS: 59025; G0463; J7120

== ENCOUNTER 2025-08-10 09:56 | Outpatient (CLI) | payer MEDICAID, SELFPAY ==
[2025-08-10] VITALS (11 sets, daily range): BP systolic 113–126; BP diastolic 67–76; PULSE 85–109; RESP 16; TEMP 36.5–36.8; O2SAT 97–98
[2025-08-10] MEDS: LACTATED RINGERS 500 ML 500 ML 1200 ML IV (11:24)
[2025-08-10 11:30] LABS: Amnisure Rom* Negative
[2025-08-10 11:49] LABS: Trichomonas No Trichomonas Seen (None Seen)
[2025-08-10 11:50] LABS: Appearance Urine Clear (Clear)
--- NOTE | 2025-08-10 13:51 | W.PM.OBTRAN ---
History of Present Illness History of Present Illness Time Seen by Provider: 13:51 Date Seen: 08/10/25 History of Present Illness: 30 year old at 34.4 weeks gestation by lmp, GEORGE 09/17/2025, presents with contractions. Patient presented after contractions started at 8am this morning. Became more regular every 3-4 minutes. Given IV fluids, without improvement in contractions. Cervical change from closed to 2 cm. Baby moving naturally: Yes Bleeding: No Contractions: Yes Leaking fluid: Yes (amnisure negative) Discharge: No Heartburn: No Back pain: No Meds Home Medications and Allergies Home Medications ?Medication ?Instructions ?Recorded ?Confirmed ?Type vitamins with calcium 1 tab PO DAILY 02/11/23 08/10/25 History no.72-iron 27 mg-folic acid 1 mg tablet ( Vitamins Plus Low Iron) aspirin 81 mg tablet,delayed 81 mg PO DAILY 06/08/25 08/10/25 History release famotidine 20 mg tablet 20 mg PO Q12H 06/08/25 08/10/25 History metronidazole 500 mg tablet 500 mg PO BID 08/10/25 08/10/25 History ondansetron 4 mg disintegrating 4 mg PO Q6H PRN nausea and vomiting 08/10/25 08/10/25 History tablet Allergies Allergy/AdvReac Type Severity Reaction Status Date / Time No Known Drug Allergies Allergy Verified 07/15/25 15:40 PFSH Medical History Gestational hypertension ?O13.9 - Gestational [-induced] hypertension without significant proteinuria, unspecified trimester (ICD-10) hemorrhage of vagina ?O72.1 - Other immediate hemorrhage (ICD-10) (normal spontaneous vaginal delivery) ?O80 - Encounter for full-term uncomplicated delivery (ICD-10) Social History What is your current living situation?: I presently have a place to live Problems where you live: no known problems In the past 12 months, utilities in danger of being shut off: no In past 12 months, lack of transportation kept you from medical appts, meetings, work, or getting things needed for daily living: no In the past 12 mos, have been you worried that your food would run out before you had money to buy more?: never true In the past 12 mos, the food you bought just didn't last and you didn't have money to buy more?: never true Smoking Status: Former smoker What tobacco products do you use: cigarettes Smoking quit date/years: <= 15 years ago Do you use any of these nicotine containing products: None Second hand tobacco smoke exposure: No How often do you have a drink containing alcohol: never How often do you have six or more drinks on one occasion: Never AUDIT-C Alcohol total score: 0 Non-prescribed substance use: denies use How often does anyone, including family, friends and others, physically hurt you: never How often does anyone, including family, friends and others, insult or talk down to you: never How often does anyone, including family, friends and others, threaten you with harm: never How often does anyone, including family, friends and others, scream or curse at you: never service: No History History 5 Elective abortions Para 2 Spontaneous abortions Hx # Term Pregnancies Ectopic pregnancies Hx # Pregnancies Multiple births Number of Living Children 2 OB - H&P: Exam Physical Exam Vital signs: Temp Pulse Resp BP Pulse Ox 97.7 F 85 16 120/71 97 08/10/25 11:29 08/10/25 11:29 08/10/25 10:15 08/10/25 11:29 08/10/25 10:30 Constitutional Constitutional: no acute distress Routine HEENT Exam Head: Present atraumatic Routine Neck Exam Neck: Present full ROM Routine Respiratory Exam Respiratory: Present CTA bilaterally Routine Cardiovascular Exam Cardiovascular: RRR, S1 and S2 Routine Abdominal Exam Abdominal: Present normal bowel sounds Detailed Labor and Delivery Exam Patient Gravid: yes Dilation (cm): 2 Effacement (%): 60 Cervix position: posterior Consistency: medium Contraction frequency (min): 3 Tachysystole: No Contraction intensity: Moderate Fetus (Single) Station: -2 Position: Other (BREECH) Amniotic Membrane Status: intact Heart Rate Baseline: 140 Monitor Accelerations: Present Monitor Decelerations: None Bridge Inspector Variability: Moderate (6-25) Routine Extremities Exam Extremities: Present pedal edema (trace to 1+); Absent calf tenderness Routine Back/Spine/Pelvis Exam Back/Spine: full ROM Routine Skin Exam Present intact Routine Neurological Exam Present alert and oriented X3 Routine Psychiatric Exam Comments: Tearful, appropriate for situation Results Labs Laboratory Tests 08/10/25 08/10/25 Range/Units 10:50 10:27 Urine Color Yellow (Yellow) Urine Appearance Clear (Clear) Urine pH 7.0 (5.0-8.5) Ur Specific [place] 1.015 (1.000-1.030) Urine Protein Negative (Negative) Urine Glucose (UA) Negative (Negative) Urine Ketones Negative (Negative) Urine Blood Negative (Negative) Urine Nitrite Negative (Negative) Urine Bilirubin Negative (Negative) Urine Urobilinogen 0.2 (0.2-1.0) Ur Leukocyte Esterase Negative (Negative) Membrane Rupture Negative Vaginal Trichomonas No Trichomonas Seen (None Seen) Vaginal Yeast No Yeast Seen (None Seen) Vaginal Clue Cells No Clue Cells Seen (None Seen) Group B Strep DNA Pending Assessment and Plan Assessment and plan (1) labor in third trimester: Problem comment: labor at 34w4 days, changed from 0 cm to 2 cm. Given we do not deliver <35 weeks, elect to transfer. Patient requests [facility] as she lives in [place], [place] Status: Acute Transfer to: [facility] (2) Breech position of fetus: Problem comment: breech position confirmed with bedside US Status: Acute (3) History of shoulder dystocia in prior : Status: Acute (4) History of hemorrhage: Status: Acute (5) H/O pre-eclampsia in prior , currently : Status: Acute Plan - Called [facility] Dr. Fournier who accepted transfer for ongoing monitoring - explained to patient (and by phone) we are transferring out of abundance of caution. Patient may have labor that stops, and if this happens may be candidate for ECV, discharge. If she becomes active labor, patient will be candidate for given breech position. - dose of betamethasone given now for lung maturity. - Patient has history of preeclampsia with severe features (first , is on baby asa) - patient has history of shoulder dystocia and hemorrhage (with 2nd ). - patient has anxiety, not currently on SSRI -GBS swab collected, pending Total time spent Total time spent: 65 min
[2025-08-10] MEDS: BETAMETHASONE SOD PHOS/ACETATE 6 MG/ML ML 12 MG IM (14:10)
--- NOTE | 2025-08-10 16:30 | PC.OBNST ---
NST Note NST Note Start: 08/10/25 10:13 Freq: ONCE Status: Active Protocol: Document 08/10/25 16:28 ALZ (Rec: 08/10/25 16:30 ALZ No Response) NST Note 2 Para (# of births) 1 EDC 08/25/25 Gestational Age In 37 Weeks & 6 Days Weeks & Days Patient Presented Contractions/cramping with Complaint(s) of Reactive Yes Appropriate for Yes Gestational Age SHERRI Zavala Date 08/10/25 Reactive Yes Appropriate for Yes Gestational Age SHERRI Elizalde Date 08/10/25 OB NST charge Yes Complete NST Note Yes via Write Note The provider's electronic signature indicates the NST is reactive/appropriate for gestational age. *Note to provider: If an addendum is required, open the patient's chart and click on the note under the Nurse/Allied Health tab.
[2025-08-11 11:24] LABS: Strep B DNA Probe Negative (Negative)
[2025-08-11 22:06] LABS: Strep B Susceptibility Needed? No
== END 2025-08-10 15:15 | disposition home or self-care (01) ==
LOC: OB OUT 09:58 → OB 09:58
PROVIDERS: PCP Family Medicine; Visit Provider Family Medicine
DX: O60.03 Preterm labor without delivery, third trimester (principal); Z3A.37 37 weeks gestation of pregnancy
CPT/HCPCS: 59025; 76815; 81003; 84112; 87081; 87086; 87210; 87653; G0463; J0702; J7120

== ENCOUNTER 2025-08-10 15:10 | Outpatient (CLI) | payer MEDICAID, SELFPAY | END 2025-08-10 15:11 | disposition home or self-care (01) | LOC: AMB 08-11 13:23 | PROVIDERS: PCP Family Medicine; Visit Provider Emergency Medicine | DX: O60.03 Preterm labor without delivery, third trimester (principal); Z3A.34 34 weeks gestation of pregnancy | CPT/HCPCS: A0425; A0427 ==

== ENCOUNTER 2025-09-06 14:32 | Outpatient (CLI) | payer MEDICAID, SELFPAY ==
[2025-09-06 14:38] VITALS: BP 111/72; PULSE 97
[2025-09-06 14:49] VITALS: RESP 17; TEMP 36.7
[2025-09-06] MEDS: ACETAMINOPHEN 500 MG TABLET 1000 MG PO (14:53)
[2025-09-06 14:55] VITALS: BP 116/60; PULSE 90
[2025-09-06 14:57] LABS: Hematocrit* 38.6 % (33.0-51.0); Hemoglobin* 12.4 gm/dL (12.0-16.0); Mean Corpuscular HGB Conc 32 gm/dL (32-36); Mean Corpuscular Hemoglobin 28 pg (26-34); Mean Corpuscular Volume 86 fL (80-100); Red Blood Count* 4.50 m/uL (4.00-5.20); White Blood Count* 8.59 K/uL (4.50-11.00)
[2025-09-06 15:01] LABS: Slide Review Reflex No
[2025-09-06 15:09] VITALS: BP 116/60; PULSE 86
[2025-09-06 15:14] LABS: Protein Creatinine Ratio Urine 0.42 (0-0.19)
[2025-09-06 15:23] LABS: Blood Urea Nitrogen* 9 mg/dL (5-24); Creatinine* 0.7 mg/dL (0.5-1.5); Estimated Glomerular Filt Rate 119 ml/min
[2025-09-06 15:24] VITALS: BP 113/72; PULSE 81
[2025-09-06 15:24] LABS: Alanine Aminotransferase* 15 U/L (4-35); Aspartate Amino Transferase* 22 U/L (12-35)
[2025-09-06] MEDS: LACTATED RINGERS 1000 ML 1,000 ML IV (15:24)
[2025-09-06 15:39] VITALS: BP 114/56; PULSE 78
--- NOTE | 2025-09-06 16:04 | PC.OBNST ---
NST Note NST Note Start: 09/06/25 14:35 Freq: ONCE Status: Active Protocol: Document 09/06/25 16:03 MRN (Rec: 09/06/25 16:04 ) NST Note 4 Para (# of births) 1 EDC 09/17/25 Gestational Age In 38 Weeks & 3 Days Weeks & Days Patient Presented Pain with Complaint(s) of If Observation after headache an injury, describe Reactive Yes Appropriate for Yes Gestational Age SHERRI Bob RN Date 09/06/25 Reactive Yes Appropriate for Yes Gestational Age SHERRI Marroquin RN Date 09/06/25 OB NST charge Yes Complete NST Note Yes via Write Note The provider's electronic signature indicates the NST is reactive/appropriate for gestational age. *Note to provider: If an addendum is required, open the patient's chart and click on the note under the Nurse/Allied Health tab.
== END 2025-09-06 16:30 | disposition home or self-care (01) ==
LOC: OB OUT 14:33 → OB 14:33
PROVIDERS: PCP Family Medicine; Visit Provider Family Medicine
DX: O26.893 Other specified pregnancy related conditions, third trimester (principal); R51.9 Headache, unspecified; Z3A.38 38 weeks gestation of pregnancy
CPT/HCPCS: 36415; 59025; 82565; 82570; 84156; 84450; 84460; 84520; 85027; G0463; A9270; J7120

== ENCOUNTER 2025-09-10 05:36 | Inpatient (IN) | payer MEDICAID, SELFPAY ==
[2025-09-10] VITALS (36 sets, daily range): BP systolic 106–136; BP diastolic 56–111; PULSE 66–88; RESP 16–18; TEMP 36.6–37; O2SAT 95–100; BMI 30.8
[2025-09-10 06:41] LABS: Hematocrit* 38.8 % (33.0-51.0); Hemoglobin* 12.5 gm/dL (12.0-16.0); Immature Granulocytes Abs Auto 0.10 K/uL (0.00-0.30); Immature Granulocytes Pct Auto 1.1 %; Mean Corpuscular HGB Conc 32 gm/dL (32-36); Mean Corpuscular Hemoglobin 28 pg (26-34); Mean Corpuscular Volume 86 fL (80-100); RDW Coefficient of Variation % 15.6 % (11.5-15.5); Red Blood Count* 4.53 m/uL (4.00-5.20); White Blood Count* 9.21 K/uL (4.50-11.00)
[2025-09-10 06:43] LABS: Lymphocytes Absolute Auto 1.80 K/uL (0.90-2.90); Slide Review Reflex No
[2025-09-10] MEDS: LACTATED RINGERS 1000 ML 1,000 ML 1200 ML IV ×2 (06:54→08:21)
--- NOTE | 2025-09-10 07:15 | W.PM.H&PU ---
History & Physical Update History & Physical Update H&P Reviewed and patient assessed: No changes noted H&P Updates: Ms. Cade is a 30yo at 39w0d GA seen in pre-op prior to planned primary for breech malpresentation. Please see our consult note from 08/17/2025, after which patient decided she was not interested in ECV and was scheduled for primary . Written consent was obtained at that time. No interval change to her health history or questions today. Repeat transabdominal ultrasound this morning confirms breech malpresentation. Type and screen drawn, admission hemoglobin 12.5, platelets of 228. 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 Discussed potential surgical intervention that could be required for PPH. We again reviewed the risks (bleeding, infection, damage to surrounding structures such as uterus, tubes, ovaries bowel, bladder, blood vessels, baby), benefits and alternatives to the planned procedure. Written consent was initialed. Plan ancef for antibiotics, [facility] to serve as Pediatrics for breech. BT P+, GBS negative.
--- NOTE | 2025-09-10 07:59 | SUR.OPER ---
PATIENT QUESTIONS ANSWERED SATISFACTORILY PREOPERATIVELY. PATIENT BROUGHT TO OR #4 BY AMBULATION BY OB RN. Patient positioned supine with a bump under the right on OR #5 bed for the procedure. ? Final approval of positioning by surgeon.
--- NOTE | 2025-09-10 08:37 | SUR.OPER ---
SURGEON DECLINES OFFER TO SEND PLACENTA TO PATHOLOGY.
--- NOTE | 2025-09-10 08:49 | P.OBPRC_ITS ---
Procedure Time Seen by Provider: 08:49 Date of procedure: 09/10/25 Pre-op diagnosis: Breech malpresentation, 39 weeks gestation, history of PPH Post-op diagnosis: same Procedure Done: only Will [facility] bill your pro fee for this procedure?: Yes Blood Loss Measurement Type: QBL (615) Bakri Used: No IV fluids (mL): 1,900 Urine Output (mL): 400 Urine Output Comment: Clear, yellow Surgeon: Bozena Lopes MD Anesthesia Type: Spinal Findings: Liveborn female Unremarkable uterus, bilateral fallopain tubes and ovaries Procedure Name: Primary delivery Procedure Description: Patient was taken to the operating room with IV running. She received cefazolin in preoperative prophylaxis. Spinal anesthesia was administered. Mc catheter was inserted. She was prepped and draped in the usual sterile fashion. Anesthesia was tested and found to be adequate. A low-transverse skin incision was made with a scalpel and carried through to the underlying layer of fascia with the scalpel. The subcutaneous fat was dissected off the underlying fascia with Bovie. The fascia was nicked in the midline with a scalpel, and this incision was extended laterally with scissors. The rectus muscles were in the midline. Peritoneum was identified and entered bluntly. Bovie was used to widen this opening laterally. Jose O retractor was inserted and tightened down, providing excellent visualization of the lower uterine segment. The bladder reflection was found to be well below the planned site for hysterotomy. Low-transverse uterine incision was made with a scalpel. Incision was widened bluntly. The 's breech was grasped and elevated to the hysterotomy. Fundal pressure was applied in order to facilitate delivery of the body, where legs were noted to be extended where Pinard maneuver was utilized to gently facilitate flexion of the knee and delivery of the lower extremities. Body was delivered to the level of the scapula, where body was rotated and the arm was swept down and out to deliver the right arm via Loveset maneuver. Baby was rotated 180 degrees, where the same was performed to deliver the left arm. Fundal pressure was again applied and the head was flexed by applying gentle pressure on the maxilla where the head was delivered atraumatically. Cord was clamped and cut after 30 seconds. was handed off to attending nurses. details: - Liveborn female at 0801 - APGARs were 8 and 9 at 1 and 5 minutes respectively - Weight: 4050g The placenta was delivered with gentle traction on the cord. Brisk bleeding was noted at the right corner of hysterotomy and left inferior margins, grasped with ring forceps. The uterus was cleaned of all clots and debris with the dry lap pad x2. Atony was noted, where IV Pitocin and IM Methergine were requrested and administered. The hysterotomy was reapproximated with 0 Vicryl in a running, locked fashion. A hematoma was noted to be forming at the left inferior margin (3.5 x 3.5cm) despite hysterotomy closure, with persistent brisk bleeding noted at the inferior and lateral hysterotomy closure itself. Exam was completed, where bleeding was suspected to be from the left uterine vessels at the margin of the uterus and broad ligament. Second surgeon was requested for assistance, where Dr. Taylor was en route. IV TXA was requested and administered. The broad ligament was manipulated to create a window to safely throw an 0 vicryl stitch from the lateral broad medially to the uterine body to secure the left uterine vessels. Figure of eight stitch was applied, with resolution of brisk bleeding. A second layer of 0 vicryl was applied in an imbrication fashion across the right to midline hysterotomy, stopping before the left inferior hematoma. At this time Dr. Taylor arrived in OR and scrubbed to assist. We both inspected the extension and [place], hematoma was noted to be stable in size with no extension. Oozing was noted at the left hysterotomy margin medial to the extension/hematoma, where an addition 0 vicryl figure of eight was applied in a horizontal imbricating fashion. Hemostasis was noted across entirety of the hysterotomy and left extension with subsequent [place]. The left hematoma was noted to appear decompressed and stable in size. The adnexa were examined and noted to be normal in appearance. The cul-de-sac and gutters were cleansed with dampened laparotomy sponge, removing any further clots and debris. The Jose O retractor was removed. The hysterotomy was reexamined and found to be hemostatic across extended monitoring. Lydia was applied across the hysterotomy. Dr. Taylor then left the case. The rectus mu scles were sequentially elevated, examined and made hemostatic as needed with electrocautery and scant leftover Lydia on the right superior musculature. Excellent hemostasis noted. The fascia was reapproximated with 0 Vicryl in a running fashion. Subcutaneous fat was irrigated and Bovie used on oozing vessels. The subcutaneous fat did not require closure. The skin was closed with a subcuticular stitch of 3-0 monocryl. Surgical glue was applied above this. Patient tolerated procedure well was taken to recovery area in stable condition. Complications: Extension of hysterotomy requiring left [place] stitch, though no PPH Pathology: specimen obtained, sent to pathology Surgery Debrief Performed: Yes Condition: stable Disposition: floor
--- NOTE | 2025-09-10 09:18 | P.ANES_ITS ---
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
--- NOTE | 2025-09-10 09:18 | W.ANESCHARGE ---
Anesthesia Charges Start Date/Time Anesthesia Start Date: 09/10/25 Anesthesia Start Time: 07:26 Stop Date/Time Anesthesia Stop Date: 09/10/25 Anesthesia Stop Time: 09:12 Coding CPT Codes CPT Codes: ANESTH CS DELIVERY - 88988 ([id number]) P2 - PATIENT W/MILD SYST DISEASE, QZ - GRIP BOSS SVC W/O WATER TESTER BY
--- NOTE | 2025-09-10 09:19 | W.PM.NB ---
Nerve Block Nerve Block Time Seen by Provider: 08:50 Date Seen: 09/10/25 Type of block requested by surgeon for post-operative analgesia: TAP Side: bilateral Time out performed: Yes Verification of patient name: Yes Verification of date of : Yes Site marking: site marked Name of person performing procedure: Lily Sklusonyaradhacelia Continuous monitoring Was continuous monitoring of O2 sat, B/P, cardiac cath lab radiology technologist, recorded every 15 minutes?: Yes Procedure Checklist: sterile prep, needles and gloves Ultrasound guided. Images saved: Yes Medications given in 5ml increments after negative aspiration: Marcaine %: 0.25 mL: 30 and Exparel mL: 10 Patient tolerated procedure well: Yes Block Charges Block Charge (with Pro Fee): TAP Bilateral Use of Ultrasound Machine for Block: Yes- US Guidance/pain block
[2025-09-10] MEDS: ACETAMINOPHEN 500 MG TABLET 1000 MG PO ×2 (11:08→17:32)
[2025-09-10] MEDS: SODIUM CHLORIDE 0.9 % (FLUSH) 10 ML SYRINGE IVF (15:19)
[2025-09-10] MEDS: LANOLIN CREAM 1 APPLIC TOPICAL (17:32)
[2025-09-11 02:55] VITALS: BP 115/74; PULSE 87; RESP 18; TEMP 37.1; O2SAT 97
[2025-09-11] MEDS: ACETAMINOPHEN 500 MG TABLET 1000 MG PO ×3 (03:11→18:19)
[2025-09-11 06:16] LABS: Hemoglobin* 9.7 gm/dL (12.0-16.0)
[2025-09-11 09:00] VITALS: BP 112/77; PULSE 81; RESP 18; TEMP 36.9; O2SAT 98
[2025-09-11] MEDS: DOCUSATE SODIUM 100 MG CAPSULE PO (09:32)
--- NOTE | 2025-09-11 15:45 | P.OBPN_ITS ---
OB - PN:Subj Subjective Date Seen: 09/11/25 Patient comments OB post-: no complaints, pain well controlled, tolerating diet and flatus present [place] status: Narrative: The patient is doing well today. She was up in a chair her during my evaluation. Her pains been adequately controlled. She is ambulatory, and voiding and passing flatus without difficulty. Her pain is adequately controlled. OB - PN: Obj Exam Physical Exam: Vital signs: Temp Pulse Resp BP Pulse Ox O2 Del Method 98.4 F 81 18 112/77 98 Room Air 09/11/25 09:00 09/11/25 09:00 09/11/25 09:00 09/11/25 09:00 09/11/25 09:00 09/11/25 09:00 Constitutional: Constitutional: no acute distress Routine Neck Exam: Neck: Present normal inspection Routine Respiratory Exam: Respiratory: Present CTA bilaterally; Absent respiratory distress Routine Cardiovascular Exam: Cardiovascular: Present RRR; Absent murmur Routine Abdominal Exam: Abdominal: Present soft; Absent tenderness Fundus: Present firm Routine Extremities Exam: Extremities: Present normal inspection and pedal edema; Absent calf tenderness Routine Neurological Exam: Neurological: Present alert and oriented X3 Routine Psychiatric Exam: Psychiatric: Present normal affect Wound Management: Method: suture Examination: Present clean, dry and intact; Absent erythematous Comments: Pfannenstiel incision. Dressing removed per RN. OB - PN: Obj Data Labs Labs: Laboratory Results - last 24 hr 09/11/25 05:40 Hgb 9.7 L OB - PN: A/P Delivery Assessment and Plan (1) Status post primary low transverse section: Problem details: For breech Status: Acute (2) Acute blood loss anemia: Problem details: Hemoglobin 9.7 Status: Acute Plan day: 1 Plan: routine care
[2025-09-11] MEDS: IBUPROFEN 600 MG TABLET PO ×2 (16:18→22:14)
[2025-09-11 17:20] VITALS: BP 108/68; PULSE 69; RESP 18; TEMP 36.9; O2SAT 97
[2025-09-12 01:15] VITALS: BP 111/74; PULSE 70; RESP 16; TEMP 36.3; O2SAT 97
[2025-09-12] MEDS: ACETAMINOPHEN 500 MG TABLET 1000 MG PO ×2 (01:19→06:48)
[2025-09-12] MEDS: IBUPROFEN 600 MG TABLET PO ×2 (03:55→10:22)
[2025-09-12 07:48] VITALS: BP 129/81; PULSE 82; RESP 16; TEMP 36.5; O2SAT 98
[2025-09-12] MEDS: DOCUSATE SODIUM 100 MG CAPSULE PO (10:23)
--- NOTE | 2025-09-12 12:08 | PM.OBDSVD1 ---
DS: Providers Provider Date Seen: 09/12/25 Date of admission: 09/10/25 05:36 Primary care physician: Joanna Carter MD Admitting Clinician: Amy Lopes MD Attending Physician on discharge: Jacinta Taylor MD Date of Discharge: 09/12/25 DS: Diagnosis Discharge Diagnosis (1) Status post primary low transverse section: Status: Acute Problem details: For breech (2) Acute blood loss anemia: Status: Acute Problem details: Hemoglobin 9.7 Exam Const: Vital Signs, click to edit/add: Vital Signs - 24 hr 09/11/25 17:20 09/12/25 01:15 09/12/25 07:48 Temperature 98.4 F 97.4 F L 97.7 F Pulse Rate [Pulse Oximeter] 69 70 82 Respiratory Rate 18 16 16 Blood Pressure [Ri ght Arm] 108/68 111/74 129/81 Pulse Oximetry 97 97 98 Oxygen Delivery Me thod Room Air Room Air Room Air Documenting provider has reviewed patient's vital signs: yes Common normals: no apparent distress and oriented x3 General appearance: cooperative and comfortable Resp: Common normals: normal respiratory effort Cardio: Common normals: regular rate and regular rhythm Rate: regular rate Rhythm: regular rhythm GI: Common normals: soft to palpation and non-tender Inspection: normal to inspection and incision (Clean, dry, intact) Inspection of incision: healing well Palpation: soft Extremity: Common normals: normal to inspection and no pedal edema Neuro: Common normals: oriented x3 Psych: Common normals: affect normal OB - DS: Summary Hospital Course Hospital Course: The patient is a 30 year old G 5 now P 3023 that was admitted to the Center on 09/10/25 for primary section for breech presentation at 39 weeks gestation. She had an uncomplicated delivery. She delivered a viable female . She is breast feeding. the patient has done well. Peripartum Data delivery method: Primary C/S; Non-Labored Procedures: Procedures Operation Date: 09/10/25 07:15 Actual Procedure Side Surgeon p Primary Section Amy Lopes MD [place] Infant Gender: Female Infant Discharge Plan: Home Status at Discharge Functional status at discharge: independent ambulation Overall status at discharge: patient is back to baseline Time Spent with Patient Time attestation: Total time spent providing and/or coordinating discharge services: Discharge Plan Discharge Disposition: Home, Self-Care Date of Admission: 09/10/25 05:36 Attending Provider on Discharge: Jacinta Taylor Primary Care Provider: Joanna Carter Condition: Stable Anticipated Discharge Date/Time: 09/12/25 12:12 Discharge Medications: New docusate sodium 100 mg Capsule 100 mg PO DAILY Qty: 30 0RF ibuprofen 600 mg Tablet 600 mg PO Q6H PRN (Reason: Pain) Qty: 30 0RF oxycodone 5 mg Tablet 5 mg PO Q6H PRN (Reason: Pain) Qty: 10 0RF ferrous sulfate 324 mg (65 mg iron) tablet,delayed release (DR/EC) 324 mg PO .qod Qty: 30 0RF Continued Vitamin Plus Low Iron 27 mg iron- 1 mg tablet 1 tab PO DAILY Discontinued ondansetron 4 mg tablet,disintegrating 4 mg PO Q6H PRN (Reason: nausea and vomiting) aspirin 81 mg tablet,delayed release (DR/EC) 81 mg PO DAILY famotidine 20 mg tablet 20 mg PO Q12H Discharge Orders: Discharge Order (Routine); Ordered 09/12/25 Ordered By: Jacinta Taylor Patient Education: Bupivacaine Liposome (By injection), OB Over the Counter Medication Information, OB /Breast Feeding Additional Instructions: May continue tylenol 1000 mg every 6 hours as needed for pain, alternating with ibuprofen 600 mg every 6 hours. [facility] check in 2 weeks, and with your primary physician in 6 weeks. Activity Level: Activity as Tolerated Discharge Diet: Regular Follow Up Appointments: Joanna Carter MD [Primary Care Provider, Family Practice] Forms: [employer] Info Instructions DS:Data Additional Comments Additional comments: hemoglobin 9.7
== END 2025-09-12 14:00 | disposition home or self-care (01) | DRG 787 ==
PROVIDERS: Admitting Provider Obstetrics & Gynecology; PCP Family Medicine; Visit Provider Obstetrics & Gynecology
PROC: 10D00Z1 Extraction of Products of Conception, Low, Open Approach (ICD-10-PCS; CPT 59514; principal; 2025-09-10 07:15)
DX: O32.1XX0 Maternal care for breech presentation, not applicable or unspecified (principal); D62 Acute posthemorrhagic anemia; O90.81 Anemia of the puerperium; G89.18 Other acute postprocedural pain; O90.2 Hematoma of obstetric wound; O62.2 Other uterine inertia; Z3A.39 39 weeks gestation of pregnancy; Z37.0 Single live birth
CPT/HCPCS: 01961; 36415; 64488; 76942; 85018; 85025; 86592; 86850; 86900; 86901; A4314; A9270; J0665; J0666; J0690; J1100; J1885; J2210; J2371; J2405; J2590; J7120

== ENCOUNTER 2025-09-20 15:00 | Outpatient (CLI) | payer MEDICAID, SELFPAY | END 2025-09-20 15:01 | disposition home or self-care (01) | LOC: NFLDREF 09-23 14:26 | PROVIDERS: PCP Family Medicine; Referring Provider Family Medicine; Visit Provider Obstetrics & Gynecology | DX: R30.0 Dysuria (principal) | CPT/HCPCS: 87086 ==